=== PATIENT | male | born 1945 | race Caucasian/White ===

== ENCOUNTER 2019-07-27 10:01 | Inpatient (IN) ==
--- NOTE | 2019-07-09 15:53 | PAT Medication Instructions ---
Medication Instructions Date of Service July 09, 2019 Home Medications atorvastatin 80 mg tablet 80 mg PO QPM clopidogrel 75 mg tablet 75 mg PO QAM isosorbide dinitrate 30 mg tablet 30 mg PO QAM metolazone 2.5 mg tablet 2.5 mg PO UD metoprolol succinate 100 mg capsule sprinkle, ext. release 24 hr 100 mg PO QAM potassium chloride 20 mEq oral packet 40 meq PO BID torsemide 10 mg tablet 20 mg PO QAM warfarin 5 mg tablet 2.5 - 5 mg PO QPM calcium carbonate-vitamin D3 [Calcium 500 + D] 1 tab PO QAM cholecalciferol (vitamin D3) [Vitamin D3] 125 mcg PO 5XWK levothyroxine 75 mcg PO QAM Multivitamin 50 Plus] 1 tab PO QAM ASK your prescriber and surgeon clopidogrel 75 mg tablet 75 mg PO QAM warfarin 5 mg tablet 2.5 - 5 mg PO QPM DO NOT take the morning of surgery metolazone 2.5 mg tablet 2.5 mg PO UD potassium chloride 20 mEq oral packet 40 meq PO BID torsemide 10 mg tablet 20 mg PO QAM calcium carbonate-vitamin D3 [Calcium 500 + D] 1 tab PO QAM cholecalciferol (vitamin D3) [Vitamin D3] 125 mcg PO 5XWK Multivitamin 50 Plus] 1 tab PO QAM Take morning of surgery With a small sip of water, OTHERWISE NOTHING TO EAT OR DRINK AFTER MIDNIGHT: isosorbide dinitrate 30 mg tablet 30 mg PO QAM metoprolol succinate 100 mg capsule sprinkle, ext. release 24 hr 100 mg PO QAM levothyroxine 75 mcg PO QAM Take evening before surgery atorvastatin 80 mg tablet 80 mg PO QPM potassium chloride 20 mEq oral packet 40 meq PO BID Other Notes If you have any questions please call us at [phone] or [phone] or [phone] or [phone]
--- NOTE | 2019-07-14 14:33 | Anesthesiology Consultation ---
Date of Service July 14, 2019 Assessment & Plan (1) Encounter for pre-operative examination: Per PAT assessment on 07/13: Travel screen- Lives in [place]. He reports that son works at [employer] and he has interacted with him a few times but that they wear masks and remain >6 feet apart/social distance during these times. No known COVID-19 positive contacts. No current COVID-19 related symptoms. Patient scheduled for COVID-19 testing (per surgeon preop protocol) 07/21 at surgeon's office. Awaiting test results. - Cardiology note: 03/17/19: Preop stress test/ECHO reviewed. "Nuclear stress test reveals normal perfusion. Echocardiogram reveals stable findings with low normal LV EF. Since his recent visit with me the patient had seen Dr. Andrews of orthopedics and right rotator cuff for tear is tentatively planned to be performed at [facility] in May. Patient is stable from a cardiac perspective to proceed with surgery as planned. I do think he requires a preoperative Lovenox bridge given his stroke risk factors and his history of permanent atrial fibrillation." Left sided pacemaker. Case reviewed with Dr. Painting- he requests we ask cardiology perioperative recommendations regarding pacemaker/if rep needed. Awaiting cardiology response RE: perioperative pacemaker recommendations. - Check coags AM DOS Chart Review Chart Review: Patient seen in Pre Admission Testing Teaching & Discussion Pre-Anesthesia Teaching/Discussion Notes: Instructed NPO after midnight before surgery,except medications with 15 cc of water. Medication instructions provided according to the PAT guidelines. History Surgery Operation Date: 07/27/19 13:00 Proposed Procedures p Right Reverse Total Shoulder Arthroplasty - Nile Andrews DO Height/Weight Height: 5 ft 8 in Weight: 134.5 kg Allergies Allergy/AdvReac Type Severity Reaction Status Date / Time aspirin Allergy Unknown PT DENIES Verified 07/09/19 14:52 Sulfa (Sulfonamide AdvReac Unknown STOMACH Verified 07/14/19 13:26 Antibiotics) CRAMPS Medications Home Medications Medication Instructions Recorded Confirmed Last Taken atorvastatin 80 mg tablet 80 mg PO QPM 03/04/19 07/14/19 Unknown clopidogrel 75 mg tablet 75 mg PO QAM 03/04/19 07/14/19 Unknown isosorbide dinitrate 30 mg tablet 30 mg PO QAM tab 03/04/19 07/14/19 Unknown metolazone 2.5 mg tablet 2.5 mg PO UD 03/04/19 07/14/19 Unknown metoprolol succinate 100 mg 100 mg PO QAM 03/04/19 07/14/19 Unknown capsule sprinkle, ext. release 24 hr potassium chloride 20 mEq oral 40 meq PO BID 03/04/19 07/14/19 Unknown packet torsemide 10 mg tablet 20 mg PO QAM 03/04/19 07/14/19 Unknown warfarin 5 mg tablet 2.5 - 5 mg PO QPM 03/04/19 07/14/19 Unknown calcium carbonate-vitamin D3 1 tab PO QAM 07/09/19 07/14/19 Unknown [Calcium 500 + D] cholecalciferol (vitamin D3) 125 mcg PO 5XWK 07/09/19 07/14/19 Unknown [Vitamin D3] levothyroxine 75 mcg PO QAM 07/09/19 07/14/19 Unknown uaxzjrpnqmhv-vvxvxyxm-hpabny 1 tab PO QAM 07/09/19 07/14/19 Unknown [Multivitamin 50 Plus] Past Medical History Medical History (Updated 07/16/19 @ 08:13 by Yael Tran) Arthritis Atrial fibrillation CAD (coronary artery disease) stent x1 (2002), CABG x2 (1999) Chronic back pain Diaphragm injury Per patient, 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- now on 2-3L O2 daily DVT (deep venous thrombosis) 1997 Gout Hypothyroidism Myocardial Infarction 1999 Pacemaker Medtronic implanted 2011, last check 05/2019 Skin cancer SCC Sleep apnea BIPAP + 2.5-3 L O2 HS Exercise / Class Metabolic Activity III < 4 Walking/Shop/Light housework (uses cane PRN) Past Family History Family History Son Family history of diabetes mellitus Past Surgical History Surgical History History of cardiac cath [facility] 1999 History of cardiac cath 2002 1 STENT [facility] History of coronary artery bypass graft 2 VESSELS [facility] History of permanent cardiac pacemaker placement 2011 S/P vascular surgery RIGHT FEM-POP BYPASS GRAFT Past Anesthesia History No Hx of Anesthesia Complications and No Family Hx of Anesthesia Complications History of PONV No Hx of PONV and No Hx of Motion Sickness Social History Smoking Status: Former smoker Do You Dip or Chew Tobacco: No Smoking End Date: QUIT 1999 Hx Alcohol Use: No Hx Substance Use: No Review of Systems Patient denies chest pain, shortness of breath, fever, chills, cough, wheezing, palpitations. Physical Exam Vital Signs VITALS BP 115/80 P 75 TEMP 98.0 SP02 94-95% on 2L O2 RESP 18 PHYSICAL Full neck and c-spine range of motion. Full TMJ range of motion. TMD 3 finger breaths Mallampati Score 2 Dentition: missing lower sides, several crowns Lungs: clear throughout to auscultation Cardiac: regular rate and rhythm, no murmurs noted Spine: normal Carotid arteries: negative bruit Extremities: non-pitting LE edema Testing Laboratory Results 07/14/19 15:15 07/14/19 15:15 PT 29.9 Seconds (9.0-12.0) H 07/14/19 15:15 INR 3.0 (0.9-1.1) H 07/14/19 15:15 APTT 37.3 Seconds (21.0-31.0) H 07/14/19 15:15 Blood Type B Positive 07/14/19 15:15 Antibody Screen NEGATIVE 07/14/19 15:15 Electrocardiogram Date: 07/14/19 Ventricular-paced rhythm at 91bpm. Suspect underlying atrial fibrillation. Chest X-Ray Date: 07/14/19 FINDINGS: The bones soft tissues and hemidiaphragms are normal. The cardiomediastinal silhouette is normal. The lungs are clear. The pulmonary vasculature is normal. Chronic elevation right hemidiaphragm. Permanent bipolar cardiac pacemaker. IMPRESSION: Chronic and postoperative change. No acute process. Echocardiogram Date: 03/17/19 EF 50-54%. Septal motion consistent with RV pacemaker. Severe LAE. Mild TR. Borderline cLV wall thickness increased. Abnormal diastolic function. Stress Test Date: 03/17/19 Type: nuclear Myocardial perfusion is normal. Overall LV systolic function was normal. Gated SPECT imaging compromised d/t pacing and patient motion (would defer resting wall motion analysis to echocardiogram of 03/17/2019). Compared to previous study of 10/11/16: "no new ischemia, inferior scar resolved." 53% MPHR. Other Testing Pacer check: 06/01/19: Genlot. Battery estimated longevity 27 months. Mode VVIR. WAIST PLEATER 99.7%.
--- NOTE | 2019-07-14 15:54 | XRay Report ---
XR chest Pre-admission PA/Lat CLINICAL HISTORY: pat preoperative COMPARISON STUDY: No previous studies for comparison. FINDINGS: The bones soft tissues and hemidiaphragms are normal. The cardiomediastinal silhouette is n ormal. The lungs are clear. The pulmonary vasculature is normal. Chronic elevation right hemidiaphrag m. Permanent bipolar cardiac pacemaker. IMPRESSION: Chronic and postoperative change. No acute process. ACT 112: Negative or not required by law. The above report was generated using voice recognition software. It may contain grammatical, syntax or spelling errors. Electronically signed by: Marcus Magana M.D. 07/14/2019 3:52 PM
[2019-07-14 15:58] LABS: Basophils # (auto) 0.04 K/uL (0-0.2); Basophils % (auto) 0.5 %; Eosinophils % (auto) 4.9 %; Hematocrit (blood only) 45.4 % (42-52); Hemoglobin 13.5 g/dL (14.0-18.0); Immature Granulocytes # (auto) 0.02 K/uL (0.00-0.02); Immature Granulocytes % (auto) 0.2 %; Lymphocytes # (auto) 1.43 K/uL (1.2-3.4); Lymphocytes % (auto) 17.6 %; Mean Corpuscular Hgb Conc 29.7 g/dL (32-36); Monocytes # (auto) 1.14 K/uL (0.11-0.59); Monocytes % (auto) 14.1 %; Neutrophils # (auto) 5.08 K/uL (1.4-6.5); Neutrophils % (auto) 62.7 %; Platelet Count 224 K/uL (130-400); RDW Coefficient of Variation 18.6 % (11.5-14.5); RDW Standard Deviation 64.3 fL (36.4-46.3); Red Blood Count 4.83 M/uL (4.7-6.1); White Blood Count 8.11 K/uL (4.8-10.8)
[2019-07-14 16:14] LABS: Partial Thromboplastin Ratio 1.3; Partial Thromboplastin Time 37.3 Seconds (21.0-31.0); Prothrombin Time 29.9 Seconds (9.0-12.0)
[2019-07-14 18:16] LABS: BUN Creatinine Ratio 21.1 (10-20); Calcium 9.9 mg/dl (8.5-10.1); Creatinine Clr Calc Pharmacy 71.8 ml/min; Est GFR (African American) 67.9; Est GFR (Non-African American) 58.6; Potassium 3.4 mmol/L (3.5-5.1)
--- NOTE | 2019-07-15 08:52 | Electrocardiogram Report ---
Test Reason : Blood Pressure : / mmHG Vent. Rate : 091 BPM Atrial Rate : 086 BPM P-R Int : 000 ms QRS Dur : 188 ms QT Int : 468 ms P-R-T Axes : 000 -65 108 degrees QTc Int : 575 ms Ventricular-paced rhythm Suspect underlying atrial fibrillation Abnormal ECG When compared with ECG of 14-MAR-2013 23:34, Vent. rate has increased BY 28 BPM Atrial fibrillation is now present Confirmed by Arnulfo Villar ([id number]) on 07/15/2019 8:52:19 AM Referred By: Nile Andrews Confirmed By:Arnulfo Villar
--- NOTE | 2019-07-22 07:41 | History & Physical Report ---
Date of Service July 22, 2019 Assessment & Plan (1) Rotator cuff arthropathy of right shoulder: We will proceed with a right reverse shoulder arthroplasty. Postoperatively he will be started back up on his Plavix and Coumadin. He will be placed in an arm sling and kept overnight in the hospital for postoperative medical management. He plans to use energy physical therapy upon discharge. Present on Admission?: Yes History of Present Illness Chief Complaint: Rotator cuff arthropathy of the right shoulder Primary Care Provider: Johnathan Adler MD Arnulfo is a pleasant 73-year-old male who has been dealing with increasing right shoulder pain and weakness. He had a rotator cuff repair done by Dr. Peralta 12 years ago. He initially did well after the surgery. Unfortunately he then fell and began having pain and weakness of his right shoulder. X-rays and clinical examination have been diagnostic for rotator cuff arthropathy of the right shoulder. After failing conservative treatment, he has elected to proceed with a reverse right shoulder arthroplasty. Allergies Allergy/AdvReac Type Severity Reaction Status Date / Time aspirin Allergy Unknown PT DENIES Verified 07/09/19 14:52 Sulfa (Sulfonamide AdvReac Unknown STOMACH Verified 07/14/19 13:26 Antibiotics) CRAMPS Home Medications Home Medications Medication Instructions Recorded Confirmed Type atorvastatin 80 mg tablet 80 mg PO QPM 03/04/19 07/14/19 History clopidogrel 75 mg tablet 75 mg PO QAM 03/04/19 07/14/19 History isosorbide dinitrate 30 mg tablet 30 mg PO QAM tab 03/04/19 07/14/19 History metolazone 2.5 mg tablet 2.5 mg PO UD 03/04/19 07/14/19 History metoprolol succinate 100 mg 100 mg PO QAM 03/04/19 07/14/19 History capsule sprinkle, ext. release 24 hr potassium chloride 20 mEq oral 40 meq PO BID 03/04/19 07/14/19 History packet torsemide 10 mg tablet 20 mg PO QAM 03/04/19 07/14/19 History warfarin 5 mg tablet 2.5 - 5 mg PO QPM 03/04/19 07/14/19 History calcium carbonate-vitamin D3 1 tab PO QAM 07/09/19 07/14/19 History [Calcium 500 + D] cholecalciferol (vitamin D3) 125 mcg PO 5XWK 07/09/19 07/14/19 History [Vitamin D3] levothyroxine 75 mcg PO QAM 07/09/19 07/14/19 History yeydfqblsuuz-jiudvtlr-locnlx 1 tab PO QAM 07/09/19 07/14/19 History [Multivitamin 50 Plus] Past Med/Surg History Medical History Arthritis Atrial fibrillation CAD (coronary artery disease) stent x1 (2002), CABG x2 (1999) Chronic back pain Diaphragm injury Per patient, 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- now on 2-3L O2 daily DVT (deep venous thrombosis) 1997 Gout Hypothyroidism Myocardial Infarction 1999 Pacemaker Medtronic implanted 2011, last check 05/2019 Skin cancer SCC Sleep apnea BIPAP + 2.5-3 L O2 HS Surgical History History of cardiac cath [facility] 1999 History of cardiac cath 2002 1 STENT [facility] History of coronary artery bypass graft 2 VESSELS [facility] History of permanent cardiac pacemaker placement 2011 S/P vascular surgery RIGHT FEM-POP BYPASS GRAFT Family History Son Family history of diabetes mellitus Social History Preferred Language: Azeri Communication Ability: Effective Block Handler Required: No Beliefs That Will Affect Care: None Current Living Situation: Spouse Feels Safe at Home: Yes Smoking Status: Former smoker Second Hand Exposure: No ; Hx Alcohol Use: No Hx Substance Use: No Review of Systems Review of Systems: All systems reviewed & are unremarkable except as noted in HPI & below Physical Exam Constitutional: WD/WN, vitals as above Eyes: PERRL, conjunctivae normal, anicteric sclerae ENMT: external ear and nose normal, oropharynx normal Neck: trachea midline, no thyromegaly Respiratory: normal respiratory effort Cardiovascular: RRR, no murmur, no edema Gastrointestinal (Abdomen): normal bowel sounds, soft, nontender, no hepatosplenomegaly Musculoskeletal: Physical examination of the right shoulder reveals decreased range of motion and significant weakness. There is tenderness palpation along the anterior glenohumeral joint line. The right upper extremity is neurovascularly intact. Psychiatric: A+Ox3, euthymic affect Results & Data Results & Data ([place]) Diagnostic Findings Radiographs of the right shoulder show some signs of osteoarthritis with blunting of the greater tuberosity and some superior migration of the humeral head on the glenoid. PG Care Time/CCT Total # of Minutes Spent Total Time Spent with Patient: Total time spent is greater than 50% in coordination of care (as documented) at patient's floor/unit and/or counseling patient: Coding Level of Care Code 27128 Initial Inpt Care Lvl 3 Diagnoses Rotator cuff arthropathy of right shoulder M12.811
[~2019-07-27 10:01] MED LIST: ACETAMINOPHEN 500 MG TAB PO SCH; CEFAZOLIN 3000MG 72.5 ML IV SCH; FAMOTIDINE 20 MG TAB PO SCH; GABAPENTIN 300 MG CAP PO SCH; LR 15ML/HR IV SCH; LR 60ML/HR IV SCH; ROPIVACAINE 0.5% HCL/PF 150 MG, BUPIVACAINE 0.5% MPF 30 ML, EPINEPHrine 30MG/30ML (OR U... INSTIL SCH; TRANEXAMIC ACID 1,000 MG **IV Intra-op IV SCH; dexAMETHasone 4 MG TAB PO SCH
--- NOTE | 2019-07-27 10:30 | History & Physical Bridge Note ---
Date of Service July 27, 2019 History & Physical Bridge Note I have examined the patient, reviewed the History & Physical and in the interval since the performance of the History & Physical I have noted the following changes of clinical significance: no changes noted
[2019-07-27 11:09] LABS: INR 1.2 (0.9-1.1); Partial Thromboplastin Ratio 1.1; Partial Thromboplastin Time 30.8 Seconds (21.0-31.0)
[2019-07-27] MEDS ORDERED: BUPIVACAINE 0.5 % 5 MG/1 ML PF 10ML VIAL ONE (11:18)
[2019-07-27] MEDS ORDERED: fentaNYL citrate 100 MCG/2 ML VIAL ONE (12:26)
[2019-07-27] MEDS ORDERED: ORTHO JOINT ANESTHETIC ONE (12:56)
[2019-07-27] MEDS ORDERED: MIDAZOLAM HCL 1 MG/ML 2ML VIAL ONE (12:57)
[2019-07-27] MEDS: TRANEXAMIC ACID 1,000 MG **IV Pre-op IV SCH ×2 (13:15→16:50)
[2019-07-27] MEDS ORDERED: ePHEDrine sulfate 50 MG/ML AMP IV PRN (13:26)
[2019-07-27] MEDS ORDERED: ATROPINE SULFATE 0.1 MG/ML 10ML SYR IV PRN (13:26)
[2019-07-27] MEDS ORDERED: SUGAMMADEX SODIUM 200 MG/2 ML VIAL IV ONE (13:30)
[2019-07-27] MEDS ORDERED: ONDANSETRON INJ 2 MG/ML 2 ML VIAL ONE (13:55)
[2019-07-27] MEDS ORDERED: ROCURONIUM BROMIDE 10 MG/ML 5 ML VIAL IV ONE (13:55)
[2019-07-27] MEDS ORDERED: DEXAMETHASONE SOD INJ 4 MG/ML VIAL ONE (13:55)
[2019-07-27] MEDS ORDERED: PROPOFOL IV EMULSION 10 MG/ML 20 ML VIAL IV ONE (13:55)
[2019-07-27] MEDS ORDERED: LIDOCAINE HCL 2% 2 ML VIAL/AMP(20MG/ML) INFIL ONE (13:55)
--- NOTE | 2019-07-27 14:56 | Operative Report ---
PG Post Operative Report Pre & Post Diagnosis Operation Date: 07/27/19 11:55 Pre-Op Diagnosis: Right Shoulder Degenerative Joint Disease Post-Op Diagnosis: Right Shoulder Degenerative Joint Disease I identified the patient and participated in the time-out.: Yes Procedure Operation Date: 07/27/19 11:55 Actual Procedures p Right Reverse Total Shoulder Arthroplasty(Right) - Nile Andrews DO Surgeon Nile Andrews DO Inside Sales Lead Nile Marroquin PAC Estimated Blood Loss 350 Findings Consistent with Post-Op Diagnosis Specimens Right humeral head Complications none Disposition Disposition: Recovery Room Indications Arnulfo is a pleasant 73-year-old male who presented my office with complaints of increasing right shoulder pain. He has a history of an open rotator cuff repair in the past. He initially did well but lately has been doing much worse. X-rays and clinical examination are diagnostic for rotator cuff arthropathy of the right shoulder. After failing conservative treatment, he elected to proceed with a right reverse shoulder arthroplasty. Description of Procedure Implants used: I used a [employer]omet Comprehensive reverse total shoulder arthroplasty system with a size 17 press fit micro-i humeral stem, a standard humeral tray and a standard humeral bearing, a 25 mm mini baseplate with a 6.5 mm central screw and superior and inferior locking screws, and a size 40 mm eccentric glenosphere. Arnulfo arrived at [facility] for the above procedure. He was seen in the preoperative holding area and the operative extremity was identified and signed. He was given a preoperative antibiotic, TXA, and an interscalene nerve block. He was taken back to the operating room, laid on table in supine position, and put under general anesthesia. He was then put into the beachchair position. The shoulder was then prepped and draped in sterile fashion. A timeout was done and the patient and the operative extremity was properly identified. A deltopectoral approach was used. Dissection was taken down through the fascia and the deltoid was retracted laterally and the conjoined tendon was retracted medially. The anterior shoulder was exposed. The biceps tendon was absent. The subscapularis was then directly released off the lesser tuberosity with a peel technique. The inferior capsule was released and the humeral head was dislocated. A canal finding reamer was sent down the center of the humeral canal. Sequential reaming up to a size 17 reamer was done. Off that reamer, a proximal humeral resection guide was placed. The proximal humerus was resected at 135 of inclination and 25 of retroversion. Osteophytes were then removed and the glenoid was exposed. Time was spent doing a complete capsular and labral release. The glenoid guide was then placed in the inferior aspect of the glenoid. A 3.2 mm Steinmann pin was then placed into the glenoid vault at 10 of inclination. The glenoid baseplate was then reamed. The final size 25 mm mini baseplate was then impacted in the place. A 6.5 mm central screw was then placed followed by superior and inferior locking screws. A 40 mm eccentric glenosphere was then impacted into place. Surrounding soft tissues were then injected with 100 cc an orthopedic pain control cocktail. The proximal humerus was then exposed. Sequential broaching of the humerus up to a size 17 broach was done. Off that broach a standard humeral tray was trialed. The shoulder was then reduced, brought through a full range of motion, and felt to be stable. The shoulder was then dislocated and the broach was removed. The final size 17 micro press-fit humeral stem was then impacted into place. A standard humeral bearing was then snapped onto a standard humeral tray. The humeral tray was then impacted onto the humeral stem. The shoulder was once again reduced, brought through a full range of motion, and felt to be stable. The subscapularis was then tenodesed back to the lesser tuberosity with transosseous FiberWire sutures and side to side sutures with the arm in 45 of external rotation. A dilute betadyne lavage was then done for 3 minutes. The joint was then irrigated with normal saline solution. Hemostasis was obtained. The interval was closed with 2-0 Vicryl suture. The skin was then closed with 2-0 Vicryl and osiris. A soft dressing was placed and the arm was rested in a regular arm sling. He was then extubated and transferred to a hospital bed. He taken to the postanesthesia care unit in stable condition. He tolerated the procedure well. Nile Marroquin PA-C, was present for the entire procedure. He was critical for patient positioning, prepping, draping, retraction exposure, wound closure and application of sterile dressing. I attest to the content of the Intraoperative Record and any orders documented therein. Any exceptions are noted below.
[2019-07-27] MEDS ORDERED: ALBUTEROL HFA INHALER 8.5 GM ONE (15:28)
[2019-07-27] MEDS ORDERED: ALBUT/IPRATROP 3MG/0.5MG NEB 3 ML VIAL ONE (15:58)
[2019-07-27] MEDS ORDERED: ALBUT/IPRATROP 3MG/0.5MG NEB 3 ML VIAL NEB STA (16:00)
--- NOTE | 2019-07-27 16:25 | XRay Report ---
XR shoulder RT min 2V routine HISTORY: 73 years-old Male Post shoulder surgery COMPARISON: Right shoulder radiographs 03/04/2019 TECHNIQUE: 2 views the right shoulder FINDINGS: Reverse total joint arthroplasty. Satisfactory alignment without acute fracture or retained foreign b holli identified. Skin osiris are noted with expected postsurgical soft tissue swelling and deep tissu e air. Mild to moderate AC joint osteoarthritis. Hypoinflation. Mild right lung base opacities sugges t atelectasis. Prior median sternotomy. Partially imaged pacer leads. IMPRESSION: Reverse right shoulder total joint arthroplasty demonstrates satisfactory alignment. ACT 112: Negative or not required by law. The above report was generated using voice recognition software. It may contain grammatical, syntax o r spelling errors. Electronically signed by: Rush Coffey M.D. 07/27/2019 4:24 PM
--- NOTE | 2019-07-27 16:51 | Anesthesiology Progress Note ---
Date of Service July 27, 2019 Anesthesia Post Procedure Vital Signs Vital Signs: Temp Pulse Pulse Resp BP Pulse Ox 07/27/19 16:40 36.4 C L 68 18 107/66 96 07/27/19 16:30 36.4 C L 60 17 116/70 100 07/27/19 16:20 61 18 114/71 100 07/27/19 16:10 61 17 98/91 L 100 07/27/19 16:00 36.1 C L 65 28 H 112/69 97 07/27/19 11:32 77 20 119/72 100 07/27/19 10:43 36.6 C 85 24 140/96 95 Transfer of Care Handoff Completed per policy Notes Mental Status: alert / awake / arousable and participated in evaluation Patient Amnestic to Procedure: Yes Nausea / Vomiting: adequately controlled Pain: adequately controlled Airway Patency, RR, SpO2: stable & adequate BP & HR: stable & adequate Hydration State: stable & adequate Anesthetic Complications: no major complications apparent and Pt Satisfied with anesthetic care Notes: The patient has a hx significant for YANIRA on BIPAP 2-3L and R diaphragm injury/lung damage secondary to his CABG. The patient did well intraoperatively with no issues. He was successfully extubated in the OR once he was more awake and taking adequate tidal volumes. He was placed on BIPAP in recovery as he was initially slightly dyspneic. Respiratory was able to titrate him down to his home BIPAP setting before being transferred to the floor. The patient is now awake and answers questions appropriately. He has no complaints. I spoke to Horacio, the [employer] asset protection representative who stated that patient's pacemaker does not need to be interrogated postoperatively. Continuous pulse oximeter monitoring was ordered for the patient on the floor.
[2019-07-27] MEDS ORDERED: TRANEXAMIC ACID 1,000 MG in 0.9 % SODIUM CHLORIDE 100 ML IV SCH (17:00)
[2019-07-27] MEDS ORDERED: SODIUM CHLORIDE 0.9% 1000ML 1,000 ML IV SCH (18:00)
[2019-07-27] MEDS ORDERED: NALOXONE HCL 0.4 MG/1 ML VIAL/CARP IV PRN (18:00)
[2019-07-27] MEDS ORDERED: bisacodyL 10 MG SUPP PR PRN (18:00)
[2019-07-27] MEDS ORDERED: METOCLOPRAMIDE HCL INJ 5 MG/ML 2 ML VIAL IV PRN (18:00)
[2019-07-27] MEDS ORDERED: MAGNESIUM HYDROXIDE SUSP 30 ML UDC PO PRN (18:00)
[2019-07-27] MEDS ORDERED: ONDANSETRON INJ 2 MG/ML 2 ML VIAL IV PRN (18:00)
[2019-07-27] MEDS ORDERED: OXYCODONE HCL IR 5 MG TAB (IMMEDIATE RELEASE) PO PRN (18:00)
[2019-07-27] MEDS ORDERED: HYDROmorphone INJ 0.5 MG/0.5 ML SYR IV PRN (18:00)
[2019-07-27] MEDS: KETOROLAC 30 MG/ML VIAL IV SCH (19:34)
[2019-07-27] MEDS ORDERED: SENNA 8.6 MG TAB PO SCH (21:00)
[2019-07-27] MEDS ORDERED: WARFARIN SOD 2.5 MG TAB PO SCH (21:00)
[2019-07-27] MEDS ORDERED: ATORVASTATIN 40 MG TAB PO SCH (21:00)
[2019-07-27] MEDS: POTASSIUM CHLORIDE PWD 20 MEQ PACK PO SCH (21:27)
[2019-07-27] MEDS: ACETAMINOPHEN 500 MG TAB PO SCH (21:28)
[2019-07-27] MEDS: DOCUSATE SODIUM 100 MG CAP PO SCH (21:28)
[2019-07-27] MEDS: CEFAZOLIN 2000MG 2,000 MG/15 ML SYR IV SCH (21:30)
[2019-07-28] MEDS: KETOROLAC 30 MG/ML VIAL IV SCH ×3 (00:22→11:23)
[2019-07-28] MEDS: ACETAMINOPHEN 500 MG TAB PO SCH ×2 (05:14→13:43)
[2019-07-28] MEDS: CEFAZOLIN 2000MG 2,000 MG/15 ML SYR IV SCH (05:14)
[2019-07-28 05:42] LABS: Basophils # (auto) 0.01 K/uL (0-0.2); Basophils % (auto) 0.1 %; Hematocrit (blood only) 41.2 % (42-52); Hemoglobin 12.1 g/dL (14.0-18.0); Immature Granulocytes # (auto) 0.03 K/uL (0.00-0.02); Immature Granulocytes % (auto) 0.3 %; Lymphocytes % (auto) 6.8 %; Mean Corpuscular Hemoglobin 29.3 pg (25-34); Mean Corpuscular Hgb Conc 29.4 g/dL (32-36); Mean Corpuscular Volume 99.8 fL (80-100); Mean Platelet Volume 11.2 fL (7.4-10.4); Monocytes # (auto) 0.85 K/uL (0.11-0.59); Monocytes % (auto) 7.2 %; Neutrophils # (auto) 10.07 K/uL (1.4-6.5); Neutrophils % (auto) 85.6 %; Platelet Count 211 K/uL (130-400); RDW Coefficient of Variation 18.8 % (11.5-14.5); RDW Standard Deviation 68.9 fL (36.4-46.3); Red Blood Count 4.13 M/uL (4.7-6.1); White Blood Count 11.76 K/uL (4.8-10.8)
[2019-07-28 06:13] LABS: BUN Creatinine Ratio 20.4 (10-20); Calcium 8.6 mg/dl (8.5-10.1); Creatinine Clr Calc Pharmacy 49.9 ml/min; Est GFR (African American) 43.2; Est GFR (Non-African American) 37.3; Potassium 5.4 mmol/L (3.5-5.1)
[2019-07-28] MEDS ORDERED: LEVOTHYROXINE SODIUM 75 MCG TABLET PO SCH (06:30)
--- NOTE | 2019-07-28 06:57 | Orthopedic Progress Note ---
Date of Service July 28, 2019 Assessment & Plan (1) History of reverse total replacement of right shoulder joint: Overall he is doing very well. Is not having much pain in the right shoulder. He will be seen by physical therapy this morning for ambulation and range of motion exercises. He can be discharged home later today. He can resume his Plavix and Coumadin. He will be in a sling for 3 weeks. He will follow-up with orthopedics in 2 weeks. Present on Admission?: Yes Subjective Arnulfo was seen and examined at bedside this morning. Overall he is doing very well. Is not having any pain in the right shoulder. He was able to get some sleep last night. He has no complaints. Physical Exam Musculoskeletal: On physical examination of the right shoulder, the dressing is clean and dry. His radial, median, and ulnar nerves are checked intact at his wrist. His axillary nerve was not checked yet. He is wearing a sling as instructed. Results & Data ([facility]) Vital Signs (Past 12 Hours) Vital Signs Temp Pulse Pulse Resp BP Pulse Ox 07/28/19 03:43 36.5 C 73 20 103/66 94 07/28/19 00:40 65 25 H 94 07/27/19 23:05 36.3 C L 71 20 102/66 93 07/27/19 20:15 36.4 C L 62 17 100/62 90 07/27/19 19:15 36.4 C L 67 18 104/61 90 Laboratory Results H & H 07/14/19 07/28/19 Range/Units 15:15 05:06 Hgb 13.5 L 12.1 L (14.0-18.0) g/dL Hct 45.4 41.2 L (42-52) % Coagulation 07/14/19 07/27/19 Range/Units 15:15 10:47 INR 3.0 H 1.2 H (0.9-1.1) Diagnostic Findings Postoperative x-rays of the right shoulder show the prosthesis to be in anatomic alignment without any evidence of fracture, dislocation, or loosening. PG Care Time/CCT Total # of Minutes Spent Total Time Spent with Patient: Total time spent is greater than 50% in coordination of care (as documented) at patient's floor/unit and/or counseling patient: Coding Level of Care Code None Diagnoses History of reverse total replacement of right shoulder joint Z98.890
--- NOTE | 2019-07-28 06:58 | Discharge Summary ---
Date of Service July 28, 2019 Admission HPI Per Admitting Provider Arnulfo is a pleasant 73-year-old male who has been dealing with increasing right shoulder pain and weakness. He had a rotator cuff repair done by Dr. Peralta 12 years ago. He initially did well after the surgery. Unfortunately he then fell and began having pain and weakness of his right shoulder. X-rays and clinical examination have been diagnostic for rotator cuff arthropathy of the right shoulder. After failing conservative treatment, he has elected to proceed with a reverse right shoulder arthroplasty. Principal Diagnosis Right reverse shoulder arthroplasty Discharge Data Allergies Allergy/AdvReac Type Severity Reaction Status Date / Time Sulfa (Sulfonamide AdvReac Mild STOMACH Verified 07/27/19 10:30 Antibiotics) CRAMPS Consultations 07/27/19 18:00 Consult Case Management - Discharge Planning Routine Procedures Performed Operation Date: 07/27/19 11:55 Actual Procedures p Right Reverse Total Shoulder Arthroplasty--Uncemented(Right) - Nile Andrews DO Ordered Studies 07/27/19 05:00 US - OR guided needle placemen Routine Hospital Course (1) History of reverse total replacement of right shoulder joint: On July 27, 2019 kale arrived at [facility] and underwent a right reverse shoulder arthroplasty without complication. He had a general anesthetic and a right interscalene nerve block. Postoperatively he was placed in an arm sling and transferred to the general orthopedic floors. His hospital course was uneventful. On postop day #1 his H&H was stable and his pain was well controlled. He was able to participate well with physical therapy doing ambulation and range of motion exercises. He was then discharged home. He will follow-up with orthopedics in 2 weeks. Total Time Total Time Spent Total Time Spent (In Minutes): 20 Discharge Plan Discharge Items Patient Disposition: Home - Home Health Services Reason For Visit: Right Shoulder Degenerative Joint Disease Discharge Diagnosis: Right reverse shoulder arthroplasty Activity: As commented below Non-emergency contact: Surgeon Call non-emergency contact if: your wound has increased redness and your wound has increased drainage Follow-up/Referrals: Johnathan Adler MD [Primary Care Provider] - Diet: Regular Addtl Attending Provider Instructions: Activity and Therapy Recommendations: * If you are using [facility] then therapy will be provided at your home until they feel you have accomplished all of your goals. * If you are using [facility] then Physical Therapy will be provided until they feel you are ready to start Outpatient Physical Therapy. * If you are not using home therapy then Outpatient Physical Therapy should sta rt about 3-5 days from your day of surgery. Therapy will last about 8-12 weeks * Wear your sling for 3 weeks, unless otherwise instructed. You may remove your sling to shower and to dress, but otherwise, you should be in your sling at all times, including while sleeping * The shoulder replacement is very stable and you can use your hand while in the sling * You were shown a series of exercises in the hospital. Do these exercises daily including the exercises you were shown in physical therapy. Medications: * Narcotic You will likely be sent home from the hospital with a prescription for the narcotic pain medication that worked best throughout your stay. * Other medications may be prescribed for specific circumstances. If you have any questions, please call the office at . * Resume previous home medications unless otherwise instructed Dressing Care: Leave the silver dressing in place for 7 days. After 7 days you may remove the dressing. If the incision is not draining then you may leave the osiris open to air. If there is a little bit of drainage or if the osiris are getting stuck on your clothing then cover the incision with a dry dressing. The osiris will be removed at your 2 week follow-up appointment. Showering: You may shower with the silver dressing in place. Do not scrub or soak the dressing. After 7 days you may remove the dressing. At that time you can shower with the osiris exposed. Let the soapy shower water run over the osiris and pat them dry. Do not scrub or soak the incision. Things To Watch For: * Drainage from the incision site that occurs more than one week after your s urgery. * Increased redness at the incision site. * Fever above 102 degrees Fahrenheit. * Unusual chest pain or shortness of breath. * Call [facility] at with any of the above problems Follow-Up Visit: Follow-up with Dr. Andrews's PA (Nile Marroquin) 2-3 weeks after your day of surgery. He will remove your osiris and answer any questions. If you have any additional questions or concerns, Dr Andrews is usually in the office at the same time and will be available An appointment was probably scheduled when you signed-up for surgery in the [facility]. If you have any questions call More detailed instructions as well as Frequently Asked Questions were provided in a folder by our office when you signed-up for surgery. Please review these instructions when you get home. If you have any further questions or concerns, please feel free to call the office at [phone] Pending Studies at Discharge: No Stand-Alone Forms: [facility] Medications and DC Order Prescriptions: New oxycodone-acetaminophen [Percocet] 5-325 mg tablet 1 tab PO Q6H PRN (Reason: pain) Qty: 30 RF: 0 Continued metolazone 2.5 mg tablet 2.5 mg PO UD RF: 0 metoprolol succinate 100 mg capsule,sprinkle,ER 24hr 100 mg PO QAM RF: 0 torsemide 10 mg tablet 20 mg PO QAM RF: 0 warfarin [Jantoven] 5 mg tablet 2.5 - 5 mg PO QPM RF: 0 isosorbide dinitrate 30 mg tablet 30 mg PO QAM RF: 0 clopidogrel 75 mg tablet 75 mg PO QAM RF: 0 potassium chloride 20 mEq packet 40 meq PO BID RF: 0 atorvastatin 80 mg tablet 80 mg PO QPM RF: 0 levothyroxine 75 mcg Capsule 75 mcg PO QAM RF: 0 Multivitamin 50 Plus Tablet 1 tab PO QAM RF: 0 calcium carbonate-vitamin D3 [Calcium 500 + D] 500 mg(1,250mg) -200 unit Tablet 1 tab PO QAM RF: 0 cholecalciferol (vitamin D3) [Vitamin D3] 125 mcg (5,000 unit) Tablet 125 mcg PO 5XWK RF: 0 Discharge Orders: Discharge Order (Routine); Ordered 07/28/19 Ordered By: Nile Andrews Admission Data Admit Date/Time: 07/27/19 15:13 Attending Provider: Nile Andrews Admit Provider: Nile Andrews Primary Care Provider: Johnathan Adler Coding Level of Care Code D/C Day Management <30 mins Diagnoses History of reverse total replacement of right shoulder joint Z98.890
[2019-07-28] MEDS ORDERED: dexAMETHasone 4 MG TAB PO SCH (08:00)
--- NOTE | 2019-07-28 08:02 | Anesthesiology Progress Note ---
Date of Service July 28, 2019 Anesthesia Post Procedure Vital Signs Vital Signs: Temp Pulse Pulse Pulse Pulse Resp BP 07/28/19 03:43 36.5 C 73 20 103/66 07/28/19 00:40 65 25 H 07/27/19 23:05 36.3 C L 71 20 102/66 07/27/19 20:15 36.4 C L 62 17 100/62 07/27/19 19:15 36.4 C L 67 18 104/61 07/27/19 18:13 36.3 C L 70 16 108/62 07/27/19 17:15 36.4 C L 65 17 93/58 L 07/27/19 17:10 74 18 07/27/19 17:00 36.4 C L 60 19 96/60 L 07/27/19 16:50 36.4 C L 61 17 98/58 L 07/27/19 16:40 36.4 C L 68 18 107/66 07/27/19 16:30 36.4 C L 60 17 116/70 07/27/19 16:20 61 18 114/71 07/27/19 16:10 61 17 98/91 L 07/27/19 16:05 74 21 07/27/19 16:00 36.1 C L 74 65 21 112/69 07/27/19 11:32 77 20 119/72 07/27/19 10:43 36.6 C 85 24 140/96 Pulse Ox 07/28/19 03:43 94 07/28/19 00:40 94 07/27/19 23:05 93 07/27/19 20:15 90 07/27/19 19:15 90 07/27/19 18:13 92 07/27/19 17:15 100 07/27/19 17:10 07/27/19 17:00 96 07/27/19 16:50 96 07/27/19 16:40 96 07/27/19 16:30 100 07/27/19 16:20 100 07/27/19 16:10 100 07/27/19 16:05 100 07/27/19 16:00 100 07/27/19 11:32 100 07/27/19 10:43 95 Transfer of Care Handoff Completed per policy Notes Mental Status: alert / awake / arousable and participated in evaluation Patient Amnestic to Procedure: Yes Nausea / Vomiting: adequately controlled Pain: adequately controlled Airway Patency, RR, SpO2: stable & adequate BP & HR: stable & adequate Hydration State: stable & adequate Anesthetic Complications: no major complications apparent and Pt Satisfied with anesthetic care Notes: Block continues to function well. Breathing back to preoperative baseline.
[2019-07-28] MEDS: DOCUSATE SODIUM 100 MG CAP PO SCH (08:36)
[2019-07-28] MEDS: POTASSIUM CHLORIDE PWD 20 MEQ PACK PO SCH (08:37)
[2019-07-28] MEDS ORDERED: TORSEMIDE 10 MG TAB PO SCH (09:00)
[2019-07-28] MEDS ORDERED: MULTIVITAMIN TAB PO SCH (09:00)
[2019-07-28] MEDS ORDERED: NON-FORMULARY MEDICATION (Isosorbide Dinitrate 30 MG) PO SCH (09:00)
[2019-07-28] MEDS ORDERED: CLOPIDOGREL BISULFATE 75 MG TAB PO SCH (09:00)
[2019-07-28] MEDS ORDERED: METOPROLOL SUCC 50MG EXT REL TAB PO SCH (09:00)
[2019-07-28] MEDS ORDERED: metOLazone 2.5 MG TABLET PO SCH (09:00)
[2019-07-28] MEDS ORDERED: WARFARIN SOD 5 MG TAB PO SCH (16:00)
== END 2019-07-28 15:46 | DRG 483 ==
LOC: ASU 10:01 → 3E 15:13

== ENCOUNTER 2021-02-05 19:06 | Inpatient (IN) ==
[2021-02-05] MEDS ORDERED: MoRPHine SULFATE 4 MG/ML 1 ML CARP\\VIAL IV STA (19:22)
--- NOTE | 2021-02-05 19:25 | Emergency Department Note ---
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 Patient states that his discomfort had been worsening throughout the afternoon. He describes it as epigastric in nature and in his "lower ribs". States it does worsen when he takes deep breath. Patient patient denies any vomiting. On arrival here to the ED he is hemodynamically stable, he is in mild distress secondary to pain but otherwise saturating well on room air. He is afebrile on presentation. Denies any recent coughing. ROS: -Cardio: Epigastric chest pain/rib pain *10 point review systems was conducted and is otherwise negative unless stated above *Outpatient medications and allergy history reviewed PE: General: Alert, NAD HEENT: Normocephalic, atraumatic, trachea midline Eyes: Extraocular eye movement is intact, no scleral erythema Pulmonary: Clear to auscultation bilaterally, no wheezing Cardio: Regular rate and rhythm GI: Abdomen is soft, nontender : No suprapubic tenderness MSK: No evidence of trauma or malformation of the extremities, no edema Skin: No evidence of rash Neuro: Alert, no focal deficits Psychiatric: Cooperative job hand: - An order was placed for continuous cardiac monitoring - Patient was noted to be in paced rhythm with rate of 80 EKG: Rate: 83 Rhythm: Paced Intervals: QRS 182 ms, QTC [address] changes: No ST elevation Time: 1920 US RUQ: Limited study due to extensive bowel gas and patient body habitus. There appear to be gallstones as well as some sludge. There is no gallbladder wall thickening or pericholecystic fluid. No bile duct dilatation with the common bile duct measuring 4.5 mm. The liver appears grossly unremarkable but is not optimally visualized. The pancreas is not visualized. The right kidney appears to show cortical thinning with a lobulated cortical contour. There is no hydronephrosis or perinephric fluid. Medical Decision Making: Patient presented with nonspecific chest discomfort, states it is more over the epigastrium and radiates somewhat upwards towards his lower rib cage bilaterally. On arrival here to the ED he is otherwise well-appearing, sa turating well on room air, he is hemodynamically stable and afebrile. Patient was given aspirin and nitroglycerin prior to arrival via EMS. Lab work shows a normal troponin, there is evidence of transaminitis with an elevated bilirubin. Patient does not have any right upper quadrant tenderness but he does have tenderness over the epigastrium. Interventions included IV morphine for pain. Imaging including right upper quadrant ultrasound and chest x-ray were ordered. Chest x-ray does not show any evidence of cardiopulmonary pathology, there is noted to be elevation of the right diaphragm consistent with the patient's history. Ultrasound imaging of the right upper quadrant does not show any evidence of acute cholecystitis, there is evidence of multiple gallstones with some sludge but no gallbladder wall thickening or pericholecystic fluid. There is no bile duct dilation noted. Unclear source of the patient's transaminitis and elevated bilirubin. I did discuss this with on-call general surgery, Dr. Orozco, who is in agreement for consultation. Case was then discussed with the on-call hospitalist, Dr. Nguyễn, who accepted the patient to a telemetry bed for further management. Patient was admitted in stable condition. Diagnosis: 1. Nonspecific chest discomfort 2. Transaminitis, elevated bilirubin level 3. Atrial fibrillation on Coumadin, INR of 2.0 Disposition: Admission Marcus Mata DO Emergency Medicine Past Med/Surg History Medical History Arthritis Atrial fibrillation on warfarin; follows with Dr. 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- now on 2-3L O2 daily DVT (deep venous thrombosis) 1997; unk etiology Gout Hypothyroidism no meds Myocardial Infarction 1999 Pacemaker Medtronic implanted 2011, last check 02/2020 Skin cancer SCC Sleep apnea BIPAP + 2.5-3 L O2 HS Surgical History History of cardiac cath [facility] 1999 History of cardiac cath 2002 1 STENT [facility] History of cataract surgery left History of coronary artery bypass graft 2 VESSELS [facility] 1999 History of permanent cardiac pacemaker placement 2011 History of reverse total replacement of right shoulder joint (~07/2019) S/P vascular surgery RIGHT FEM-POP BYPASS GRAFT Family History Son Family history of diabetes mellitus Social History Smoking Status: Former smoker Tobacco Type: Cigarettes Second Hand Exposure: Yes (hx); Hx Alcohol Use: No Hx Substance Use: No Preferred Language: Palestinian Communication Ability: Effective Visual Impairment: No Limitations General Office Worker Required: No Beliefs That Will Affect Care: None marital status: Current Living Situation: Spouse Feels Safe at Home: Yes Assistive Devices: Cane and Glasses Allergies Allergies Allergy/AdvReac Type Severity Reaction Status Date / Time Sulfa (Sulfonamide AdvReac Mild STOMACH Verified 02/05/21 20:46 Antibiotics) CRAMPS Home Meds Home Medications Medication Instructions Recorded Confirmed atorvastatin 80 mg tablet 80 mg PO QPM 03/04/19 02/05/21 clopidogrel 75 mg tablet 75 mg PO QAM 03/04/19 02/05/21 isosorbide dinitrate 30 mg tablet 30 mg PO QAM tab 03/04/19 02/05/21 metolazone 2.5 mg tablet 2.5 mg PO UD 03/04/19 02/05/21 metoprolol succinate 100 mg 100 mg PO QAM 03/04/19 02/05/21 capsule sprinkle, ext. release 24 hr potassium chloride 20 mEq oral 60 meq PO BID 03/04/19 02/05/21 packet torsemide 10 mg tablet 20 mg PO QAM 03/04/19 02/05/21 warfarin 5 mg tablet (Jantoven) 2.5 - 5 mg PO QPM 03/04/19 02/05/21 calcium carbonate 500 mg-vitamin 1 tab PO QAM 07/09/19 02/05/21 D3 5 mcg (200 unit) tablet (Calcium 500 + D) cholecalciferol (vitamin D3) 125 125 mcg PO 5XWK 07/09/19 02/05/21 mcg (5,000 unit) tablet (Vitamin D3) [id number] 1 tab PO QAM 07/09/19 02/05/21 tablet (Multivitamin 50 Plus) levothyroxine 75 mcg tablet 75 mcg PO DAILY 12/26/21 12/26/21 Results & Data (ED) Vital Signs Vital Signs - 24 hr 02/05/21 19:22 02/06/21 00:00 Temperature 36.4 C L Temperature Source Temporal Artery Scan Pulse Rate 84 Pulse Rate [Apical] 84 60 Pulse Rhythm Regular Pulse Rhythm [Apical] Regular Regular Pulse Strength Normal Pulse Strength [Apical] Normal Normal Respiratory Rate 18 16 Respiratory Effort / Characteristics Non-Labored Spontaneous Non-Labored Spontaneous Respiratory Depth Normal Normal Respiratory Pattern Regular Blood Pressure 112/85 Blood Pressure [Right Arm] 112/85 94/53 L Blood Pressure Mean 94 Blood Pressure Mean [Right Arm] 94 66 Blood Pressure Position Semi-fowlers Blood Pressure Position [Right Arm] Semi-fowlers Pulse Oximetry 98 98 Oxygen Delivery Method Nasal Cannula Room Air Oxygen Flow Rate 4 Sepsis Recent Fever Within 48 Hours No Sepsis New/Unexplained Change in Mental Status No Sepsis Action Taken by Nursing No Action Required Oxygen Flow Rate - Titration 4 Pulse Oximetry Post Tiitration 97 Laboratory Data Result diagrams: 02/05/21 19:30 02/05/21 19:30 Lab Results 02/05/21 02/05/21 02/05/21 Range/Units 19:30 19:30 19:30 WBC 15.56 H (4.8-10.8) K/uL RBC 4.96 (4.7-6.1) M/uL Hgb 15.8 (14.0-18.0) g/dL Hct 48.9 (42-52) % MCV 98.6 (80-100) fL MCH 31.9 (25-34) pg MCHC 32.3 (32-36) g/dL RDW Std Deviation 56.2 H (36.4-46.3) fL RDW Coeff of Ibrahima 15.7 H (11.5-14.5) % Plt Count 327 (130-400) K/uL MPV 10.9 H (7.4-10.4) fL Immature Gran % (Auto) 0.3 % Neut % (Auto) 92.1 % Lymph % (Auto) 2.0 % [place] % (Auto) 5.3 % Eos % (Auto) 0.1 % Baso % (Auto) 0.2 % Neut # (Auto) 14.33 H (1.4-6.5) K/uL Lymph # (Auto) 0.31 L (1.2-3.4) K/uL [place] # (Auto) 0.83 H (0.11-0.59) K/uL Eos # (Auto) 0.02 (0-0.5) K/uL Baso # (Auto) 0.03 (0-0.2) K/uL Immature Gran # (Auto) 0.04 H (0.00-0.02) K/uL PT 19.3 H (9.0-12.0) Seconds INR 2.0 H (0.9-1.1) Sodium 140 (136-145) mmol/L Potassium 2.9 L (3.5-5.1) mmol/L Chloride 101 (98-107) mmol/L Carbon Dioxide 31 (21-32) mmol/L Anion Gap 8.0 (3-11) BUN 35 H (7-18) mg/dl Creatinine 1.74 H (0.6-1.4) mg/dl Est Cr Clr Drug Dosing 42.8 ml/min Est GFR ( Amer) 43.2 ml/min Est GFR (Non-Af Amer) 37.3 ml/min BUN/Creatinine Ratio 19.9 (10-20) Glucose 137 H (70-99) mg/dl Calcium 10.2 H (8.5-10.1) mg/dl Total Bilirubin 4.9 H (0.2-1) mg/dl AST 212 H (15-37) U/L ALT 132 H (12-78) Alkaline Phosphatase 317 H (45-117) U/L Troponin I < 0.015 (0-0.045) ng/ml Total Protein 8.1 (6.4-8.2) gm/dl Albumin 3.1 L (3.4-5.0) gm/dl Globulin 5.0 H (2.5-4.0) gm/dl Albumin/Globulin Ratio 0.6 L (0.9-2) Lipase 745 H (73-393) U/L SARS-CoV-2 (PCR) (Negative) Influenza Type A (PCR) (Neg) Influenza Type B (PCR) (Neg) RSV (RT-PCR) (Neg) 02/05/21 Range/Units 23:20 WBC (4.8-10.8) K/uL RBC (4.7-6.1) M/uL Hgb (14.0-18.0) g/dL Hct (42-52) % MCV (80-100) fL MCH (25-34) pg MCHC (32-36) g/dL RDW Std Deviation (36.4-46.3) fL RDW Coeff of Ibrahima (11.5-14.5) % Plt Count (130-400) K/uL MPV (7.4-10.4) fL Immature Gran % (Auto) % Neut % (Auto) % Lymph % (Auto) % [place] % (Auto) % Eos % (Auto) % Baso % (Auto) % Neut # (Auto) (1.4-6.5) K/uL Lymph # (Auto) (1.2-3.4) K/uL [place] # (Auto) (0.11-0.59) K/uL Eos # (Auto) (0-0.5) K/uL Baso # (Auto) (0-0.2) K/uL Immature Gran # (Auto) (0.00-0.02) K/uL PT (9.0-12.0) Seconds INR (0.9-1.1) Sodium (136-145) mmol/L Potassium (3.5-5.1) mmol/L Chloride (98-107) mmol/L Carbon Dioxide (21-32) mmol/L Anion Gap (3-11) BUN (7-18) mg/dl Creatinine (0.6-1.4) mg/dl Est Cr Clr Drug Dosing ml/min Est GFR ( Amer) ml/min Est GFR (Non-Af Amer) ml/min BUN/Creatinine Ratio (10-20) Glucose (70-99) mg/dl Calcium (8.5-10.1) mg/dl Total Bilirubin (0.2-1) mg/dl AST (15-37) U/L ALT (12-78) Alkaline Phosphatase (45-117) U/L Troponin I (0-0.045) ng/ml Total Protein (6.4-8.2) gm/dl Albumin (3.4-5.0) gm/dl Globulin (2.5-4.0) gm/dl Albumin/Globulin Ratio (0.9-2) Lipase (73-393) U/L SARS-CoV-2 (PCR) NEGATIVE (Negative) Influenza Type A (PCR) Negative (Neg) Influenza Type B (PCR) Negative (Neg) RSV (RT-PCR) Negative (Neg) Administered Medications Potassium Chloride/Sodium Chloride (Normal Saline W/20 Meq Kcl) 20 meq in 1,000 mls @ 100 mls/hr IV .Q10H PANDA; Protocol Stop: 03/07/21 23:29 Last Admin: 02/06/21 00:21 Dose: 100 mls/hr Documented by: [id number] Discontinued Medications Ioversol (Optiray 320 125ml) 120 ml IV ONCE ONE Stop: 02/05/21 21:58 Last Admin: 02/05/21 21:58 Dose: 120 ml Documented by: [id number] Morphine Sulfate (Morphine Sulfate 4 Mg/Ml 1 Ml Carp\\Vial) 4 mg IV NOW STA Stop: 02/05/21 19:23 Last Admin: 02/05/21 19:48 Dose: 4 mg Documented by: [id number] Imaging Data Radiologist's Impression: Chest X-Ray 02/05/21 19:22 XR chest 1V portable CLINICAL HISTORY: Chest Pain. COMPARISON STUDY: 07/14/2019 TECHNIQUE: 1 view of the chest FINDINGS: Single frontal view of the chest demonstrates the heart size to be within normal limits status post previous cardiothoracic surgery and pacer placement. There is again marked asymmetric elevation of the right hemidiaphragm with crowding of bronchovascular markings at the right lung base. The lungs are otherwise clear of alveolar opacities. There is no evidence for pleural effusion. There is no evidence for vascular congestion. There is no acute osseous pathology. IMPRESSION: No acute cardiopulmonary disease. Marked asymmetric elevation the right hemidiaphragm with crowding of the bronchovascular markings at the right lung base. ACT 112: Negative or not required by law. Electronically signed by: Armando Lanza M.D. 02/05/2021 7:52 PM Chest CTA 02/05/21 21:28 CT angio chest PE protocol CLINICAL HISTORY: Shortness of breath and chest pain. Evaluate for pulmonary embolus COMPARISON STUDY: Portable chest from 02/05/2021 CT DOSE: 844.96 mGy.cm TECHNIQUE: CT Angio of the chest was performed.followed by image post processing with coronal, and sagittal MIP reformats. Contrast Volume: Optiray 320, 120 ml FINDINGS: Vasculature: There is homogeneous perfusion of the pulmonary vasculature bilaterally. No intraluminal filling defects or evidence for pulmonary embolus is seen. Airway: The airway is clear. No endobronchial lesion is identified. Lungs: There is again asymmetric elevation right hemidiaphragm with crowding the bronchovascular markings at the right lung base and right basilar atelectasis posteriorly. The lungs are clear of acute alveolar opacities, air bronchograms or pulmonary nodules. Pleura: There is no evidence for pleural effusion. There is no evidence for pneumothorax. Mediastinum: There is no evidence for pathologic adenopathy. The heart size is within normal limits. There is prominent atherosclerotic calcification present of the coronary arteries. Permanent cardiac pacer is in place. The thoracic aorta is within normal limits. Mild atherosclerotic calcification is present. There is no evidence for pericardial effusion. Upper abdomen:The adrenal glands are normal bilaterally. The gallbladder is dist ended. Osseous structures: There is no acute osseous pathology. Impression: 1. No CTA evidence for pulmonary embolus. 2. As noted radiographically, there is asymmetric elevation of the right hemidiaphragm with crowding of the bronchovascular markings at the right lung base. 3. There is also right basilar atelectasis posteriorly with otherwise no acute chest disease. 4. Coronary artery calcification. ACT 112: Negative or not required by law. Electronically signed by: Armando Lanza M.D. 02/05/2021 10:15 PM Discharge Plan Visit Data Chief Complaint: Chest Pain Stated Complaint: Chest Pain ED Provider: Mracus Mata Discharge Problem: Chest pain, Transaminitis Forms Stand Alone Forms: [facility] Prescriptions Prescriptions: No Action metolazone 2.5 mg tablet 2.5 mg PO UD RF: 0 metoprolol succinate 100 mg capsule,sprinkle,ER 24hr 100 mg PO QAM RF: 0 torsemide 10 mg tablet 20 mg PO QAM RF: 0 warfarin [Jantoven] 5 mg tablet 2.5 - 5 mg PO QPM RF: 0 isosorbide dinitrate 30 mg tablet 30 mg PO QAM RF: 0 clopidogrel 75 mg tablet 75 mg PO QAM RF: 0 potassium chloride 20 mEq packet 60 meq PO BID RF: 0 atorvastatin 80 mg tablet 80 mg PO QPM RF: 0 Multivitamin 50 Plus Tablet 1 tab PO QAM RF: 0 calcium carbonate-vitamin D3 [Calcium 500 + D] 500 mg(1,250mg) -200 unit Tablet 1 tab PO QAM RF: 0 cholecalciferol (vitamin D3) [Vitamin D3] 125 mcg (5,000 unit) Tablet 125 mcg PO 5XWK RF: 0 levothyroxine 75 mcg tablet 75 mcg PO DAILY RF: 0 Referrals Referrals: Johnathan Adler MD [Primary Care Provider] - Discharge Problem: Chest pain Qualifiers: Chest pain type: unspecified Qualified Code(s): R07.9 - Chest pain, unspecified
[2021-02-05 19:39] LABS: Basophils # (auto) 0.03 K/uL (0-0.2); Basophils % (auto) 0.2 %; Eosinophils # (auto) 0.02 K/uL (0-0.5); Eosinophils % (auto) 0.1 %; Hematocrit (blood only) 48.9 % (42-52); Hemoglobin 15.8 g/dL (14.0-18.0); Immature Granulocytes # (auto) 0.04 K/uL (0.00-0.02); Immature Granulocytes % (auto) 0.3 %; Lymphocytes # (auto) 0.31 K/uL (1.2-3.4); Mean Corpuscular Hemoglobin 31.9 pg (25-34); Mean Corpuscular Hgb Conc 32.3 g/dL (32-36); Mean Corpuscular Volume 98.6 fL (80-100); Mean Platelet Volume 10.9 fL (7.4-10.4); Monocytes # (auto) 0.83 K/uL (0.11-0.59); Monocytes % (auto) 5.3 %; Neutrophils # (auto) 14.33 K/uL (1.4-6.5); Neutrophils % (auto) 92.1 %; Platelet Count 327 K/uL (130-400); RDW Coefficient of Variation 15.7 % (11.5-14.5); RDW Standard Deviation 56.2 fL (36.4-46.3); Red Blood Count 4.96 M/uL (4.7-6.1); White Blood Count 15.56 K/uL (4.8-10.8)
--- NOTE | 2021-02-05 19:53 | XRay Report ---
XR chest 1V portable CLINICAL HISTORY: Chest Pain. COMPARISON STUDY: 07/14/2019 TECHNIQUE: 1 view of the chest FINDINGS: Single frontal view of the chest demonstrates the heart size to be within normal limits status post p revious cardiothoracic surgery and pacer placement. There is again marked asymmetric elevation of the right hemidiaphragm with crowding of bronchovascular markings at the right lung base. The lungs are otherwise clear of alveolar opacities. There is no evidence for pleural effusion. There is no evidenc e for vascular congestion. There is no acute osseous pathology. IMPRESSION: No acute cardiopulmonary disease. Marked asymmetric elevation the right hemidiaphragm wit h crowding of the bronchovascular markings at the right lung base. ACT 112: Negative or not required by law. Electronically signed by: Armando Lanza M.D. 02/05/2021 7:52 PM
[2021-02-05 19:56] LABS: Prothrombin Time 19.3 Seconds (9.0-12.0)
[2021-02-05 19:59] LABS: Alanine Aminotransferase 132 (12-78); Albumin Level 3.1 gm/dl (3.4-5.0); Aspartate Aminotransferase 212 U/L (15-37); BUN Creatinine Ratio 19.9 (10-20); Blood Urea Nitrogen 35 mg/dl (7-18); Calcium 10.2 mg/dl (8.5-10.1); Carbon Dioxide 31 mmol/L (21-32); Chloride 101 mmol/L (98-107); Creatinine Clr Calc Pharmacy 42.8 ml/min; Est GFR (African American) 43.2 ml/min; Est GFR (Non-African American) 37.3 ml/min; Glucose 137 mg/dl (70-99); Lipase 745 U/L (73-393); Potassium 2.9 mmol/L (3.5-5.1); Sodium 140 mmol/L (136-145)
[2021-02-05 20:04] LABS: Albumin Globulin Ratio 0.6 (0.9-2); Alkaline Phosphatase 317 U/L (45-117); Bilirubin,Total 4.9 mg/dl (0.2-1); Total Protein 8.1 gm/dl (6.4-8.2); Troponin I < 0.015 ng/ml (0-0.045)
[2021-02-05] MEDS ORDERED: OPTIRAY 320 125ml IV ONE (21:57)
--- NOTE | 2021-02-05 22:16 | CT Scan Report ---
CT angio chest PE protocol CLINICAL HISTORY: Shortness of breath and chest pain. Evaluate for pulmonary embolus COMPARISON STUDY: Portable chest from 02/05/2021 CT DOSE: 844.96 mGy.cm TECHNIQUE: CT Angio of the chest was performed.followed by image post processing with coronal, and s agittal MIP reformats. Contrast Volume: Optiray 320, 120 ml FINDINGS: Vasculature: There is homogeneous perfusion of the pulmonary vasculature bilaterally. No intraluminal filling defects or evidence for pulmonary embolus is seen. Airway: The airway is clear. No endobronchial lesion is identified. Lungs: There is again asymmetric elevation right hemidiaphragm with crowding the bronchovascular harriet ings at the right lung base and right basilar atelectasis posteriorly. The lungs are clear of acute a lveolar opacities, air bronchograms or pulmonary nodules. Pleura: There is no evidence for pleural effusion. There is no evidence for pneumothorax. Mediastinum: There is no evidence for pathologic adenopathy. The heart size is within normal limits. There is prominent atherosclerotic calcification present of the coronary arteries. Permanent cardiac pacer is in place. The thoracic aorta is within normal limits. Mild atherosclerotic calcification is present. There is no evidence for pericardial effusion. Upper abdomen:The adrenal glands are normal bilaterally. The gallbladder is distended. Osseous structures: There is no acute osseous pathology. Impression: 1. No CTA evidence for pulmonary embolus. 2. As noted radiographically, there is asymmetric elevation of the right hemidiaphragm with crowding of the bronchovascular markings at the right lung base. 3. There is also right basilar atelectasis posteriorly with otherwise no acute chest disease. 4. Coronary artery calcification. ACT 112: Negative or not required by law. Electronically signed by: Armando Lanza M.D. 02/05/2021 10:15 PM
[2021-02-05] MEDS ORDERED: NSS + 20MEQ KCL 20 MEQ/1,000 ML BAG IV SCH (23:30)
[2021-02-06 00:06] LABS: Influenza A virus by PCR Negative (Neg); Influenza B virus by PCR Negative (Neg); RSV by PCR Negative (Neg); SARS CoV2 RNA(COVID-19) InHosp NEGATIVE (Negative)
[2021-02-06] MEDS ORDERED: POTASSIUM CHLORIDE CRTAB 20 MEQ TABCR PO STA (03:16)
[2021-02-06] MEDS ORDERED: HYDROmorphone INJ 0.5 MG/0.5 ML SYR IV PRN (03:17)
[2021-02-06] MEDS ORDERED: PIPERACILL/TAZOBAC CONSULT ACTIVE PRN (03:18)
[2021-02-06] MEDS ORDERED: PIPERACILLIN/TAZOBACTAM 4.5 GM/120 ML BAG IV STA (04:13)
[2021-02-06] MEDS: SODIUM CHLORIDE 0.9% 1000ML 1,000 ML IV SCH ×2 (04:57→11:58)
[2021-02-06] MEDS ORDERED: ACETAMINOPHEN 325 MG TAB PO PRN (05:18)
[2021-02-06] MEDS ORDERED: ONDANSETRON INJ 2 MG/ML 2 ML VIAL IV PRN ×3 (05:18→17:09)
[2021-02-06] MEDS ORDERED: NITROGLYCERIN SL 0.4 MG/TAB TAB SL PRN (05:18)
--- NOTE | 2021-02-06 06:36 | History and Physical Report ---
DATE OF ADMISSION: 02/06/2021. CHIEF COMPLAINT: Abdominal discomfort and chest pain. HISTORY OF PRESENT ILLNESS: A 75-year-old male with past medical history significant for type 2 diabetes, currently not on any medications, hyperlipidemia, history of hyperthyroidism, obstructive sleep apnea, CAD status post CABG x2 and status post stents, chronic systolic and diastolic CHF, history of AV block third degree, status post pacemaker, history of chronic atrial fibrillation, left bundle-branch block, morbid obesity, chronic kidney disease stage III, gouty arthropathy, low back pain, history of blood clots, currently lives alone at home, ambulates with a cane. Comes here because of feeling of chest pain since yesterday. The patient states since yesterday 1:00 to 2:00 p.m., he noticed some indigestion kind of feeling, some abdominal discomfort with pain radiating to the chest and it was not getting better, so came to the ER. It was very severe in nature. With the morphine, the pain is currently resolved. When he was having the pain, he also was nauseous and denies any shortness of breath, feels some cold and chills. No fever, no headache, no blurred vision, no earache, no runny nose, no sore throat. No cough. Appetite is okay. No diarrhea or constipation, no blood in stool or black stools. Normal bladder movements. No swelling in the legs. Currently resting comfortably and hemodynamically stable. ALLERGIES: SULFA ANTIBIOTICS. PAST MEDICAL HISTORY: As mentioned above. PAST SURGICAL HISTORY: CABG, cardiac stent, cataract surgery, pacemaker placement, fem-pop artery revascularization with stent and angioplasty in , right reverse total shoulder arthroplasty. MEDICATIONS: The patient is on atorvastatin 80 mg p.o. p.m., calcium plus vitamin D one tablet p.o. a.m., vitamin D 125 mcg p.o. 5 times a week, Plavix 75 mg p.o. a.m., isosorbide mononitrate 30 mg p.o. a.m., levothyroxine 75 mcg p.o. daily, metolazone 2.5 mg twice weekly on Saturday and , metoprolol succinate 100 mg p.o. a.m., multivitamin 1 tablet p.o. a.m., potassium chloride 60 mEq p.o. b.i.d. and takes extra 4 tablets twice a week with metolazone, torsemide 20 mg p.o. daily, warfarin 2.5 to 5 mg p.o. p.m. FAMILY HISTORY: Significant for father had abdominal aortic aneurysm and three MIs; mother has heart disorder. SOCIAL HISTORY: , former smoker, quit in 1999, smoked 1 pack a day for 33 years. No alcohol use. No drug use. REVIEW OF SYSTEMS: As per HPI. Rest of the review of systems is negative. PHYSICAL EXAMINATION: GENERAL: The patient is obese, not in acute distress currently. VITAL SIGNS: Temperature 36.4, pulse 60, respiratory rate 16, blood pressure 96/64, oxygen 95% on room air. HEENT: Pupils equal, round and reactive to light. Oral mucosa moist. NECK: No JVD, no neck masses. CARDIOVASCULAR: S1 and S2 heard. Regular rate and rhythm. No murmur, no gallop. RESPIRATORY SYSTEM: Normal AP diameter. No accessory muscle use. No wheezing, no crackles. ABDOMEN: Soft, bowel sounds present, nontender, no distention. CENTRAL NERVOUS SYSTEM: Cranial nerves II-XII grossly intact, nonfocal. EXTREMITIES: No edema, no erythema. LABORATORY DATA: WBC 15.5, hemoglobin 15.8, hematocrit 48.9, platelets 327. PT 19.3, INR 2. Sodium 140, potassium 2.9, chloride 101, bicarbonate 21, BUN 35, creatinine 1.7, serum glucose 137, calcium 10.2, total bilirubin 4.9, AST 212, ALT 132, alkaline phosphatase 317. Troponin I less than 0.015. Lipase 745. SARS-CoV-2 PCR negative. Influenza A and B PCR negative. RSV PCR negative. IMAGING DATA: CT of the chest, no PE, asymmetric elevation of right hemidiaphragm with crowding of the bronchovascular markings in the right lung base, right basilar atelectasis. Chest x-ray, no acute findings. Gallbladder ultrasound, preliminary report, there appears to be a gallstone versus some sludge, no gallbladder wall thickening or pericholecystic fluid. No bile duct dilatation with common bile duct measuring 4.5 mm. The liver appeared grossly unremarkable, but is not optimally visualized. Pancreas is not visualized. EKG: Ventricular paced rhythm at a rate of 83. ASSESSMENT AND PLAN: This is a 75-year-old male who presents with abdominal pain, chest pain. 1. Chest pain could be coming from his abdomen, but with his history of CAD, CABG and stents placement and history of diabetes, hypertension, because of these factors, will do serial enzymes, echo, keep him n.p.o. and consult cardiology in the a.m. 2. Elevated LFTs with elevated bilirubin of 4.9. AST, ALT elevated at 212 and 132, alkaline phosphatase 317. The patient Initially had indigestion kind of feeling. Currently, no abdominal tenderness. Gallbladder ultrasound preliminary report shows gallstones, but no CBD stone and no CBD dilatation, but we will get an MRCP because the patient is also having leukocytosis. Will empirically start on Zosyn. ER already talked to surgery and will be consulted. Will also consult GI. Will place on IV fluids, n.p.o., IV Dilaudid p.r.n. for pain. Lipase is elevated 745, will repeat lipase. 3. Hypokalemia: We will replace. Follow the repeat labs. 4. Chronic kidney disease stage III: Baseline creatinine around 1.4, currently creatinine of 1.7. Avoid nephrotoxic agents. Getting fluids. Follow the repeat labs. 5. History of coronary artery disease, status post CABG, status post stents. Continue his home medication of Plavix, Imdur, metoprolol, and statin. 6. Chronic diastolic and systolic congestive heart failure: Recent echo in March 2019, EF is 50% to 55%. Holding his home diuretics and potassium supplements. Getting fluids. Continue metoprolol succinate. Monitor for volume overload. 7. History of paroxysmal atrial fibrillation, history of blood clots, on metoprolol with rate control on Coumadin. INR is 2. Holding Coumadin for any procedures. Follow PT/INR. 8. Diabetes: Not on any medication. Placed on insulin sliding scale. Will follow the blood sugars. 9. Hyperlipidemia: Continue statin. 10. Obesity: Needs counseling. 11. Hypothyroidism: Continue Synthroid. 12. Hypertension. Continue Imdur, metoprolol. Holding diuretics. Will monitor the blood pressure. Currently, blood pressure is on the lower side. 13. History of AV block, third degree: Status post cardiac pacemaker. 14. Deep venous thrombosis prophylaxis. Currently INR is 2. Will place on sequential compression devices. Holding Coumadin for any planned procedures. DISPOSITION: Admit to med tele. PT/OT prior to discharge. Social service to help with discharge planning. Job ID: [id number] [email or web address]
[2021-02-06 06:40] LABS: Hematocrit (blood only) 44.6 % (42-52); Hemoglobin 14.1 g/dL (14.0-18.0); Mean Corpuscular Hemoglobin 31.8 pg (25-34); Mean Corpuscular Hgb Conc 31.6 g/dL (32-36); Mean Corpuscular Volume 100.5 fL (80-100); Mean Platelet Volume 11.3 fL (7.4-10.4); Platelet Count 288 K/uL (130-400); RDW Coefficient of Variation 16.2 % (11.5-14.5); RDW Standard Deviation 59.1 fL (36.4-46.3); Red Blood Count 4.44 M/uL (4.7-6.1); White Blood Count 26.74 K/uL (4.8-10.8)
[2021-02-06 06:44] LABS: Appearance Urine Clear (Clear); Bacteria Urine Automated Negative (Negative); Blood Urine Negative (Negative); Color Urine Dark Yellow; Epithelial Cell Urine Auto 20-30 /lpf (0-5); Glucose Urine UA Negative (Negative); Ketones Urine Negative (Negative); Leukocyte Esterase Urine Negative (Negative); Nitrite Urine Negative (Negative); Protein Urine Trace (Negative); RBC Urine Automated 0-4 /hpf (0-4); Specific Gravity Urine 1.043 (1.000-1.030); Urobilinogen Urine Negative (Negative); pH Urine 5.5 (4.5-7.5)
[2021-02-06 06:46] LABS: INR 2.2 (0.9-1.1); Prothrombin Time 20.9 Seconds (9.0-12.0)
[2021-02-06] MEDS: INSULIN ASPART PER UNIT SC SCH ×3 (06:50→18:33)
[2021-02-06 06:55] LABS: Bilirubin Urine 1+ (Negative)
[2021-02-06 07:06] LABS: BUN Creatinine Ratio 17.1 (10-20); Blood Urea Nitrogen 38 mg/dl (7-18); Calcium 9.5 mg/dl (8.5-10.1); Carbon Dioxide 28 mmol/L (21-32); Chloride 100 mmol/L (98-107); Creatinine Clr Calc Pharmacy 33.3 ml/min; Est GFR (African American) 31.8 ml/min; Est GFR (Non-African American) 27.5 ml/min; Glucose 182 mg/dl (70-99); Magnesium 2.3 mg/dl (1.8-2.4); Potassium 4.1 mmol/L (3.5-5.1); Sodium 136 mmol/L (136-145); Troponin I < 0.015 ng/ml (0-0.045)
[2021-02-06 07:08] LABS: Basophils # (auto) 0.02 K/uL (0-0.2); Basophils % (auto) 0.1 %; Eosinophils # (auto) 0.01 K/uL (0-0.5); Immature Granulocytes # (auto) 0.07 K/uL (0.00-0.02); Immature Granulocytes % (auto) 0.3 %; Lymphocytes # (auto) 1.25 K/uL (1.2-3.4); Lymphocytes % (auto) 4.7 %; Monocytes # (auto) 1.69 K/uL (0.11-0.59); Monocytes % (auto) 6.3 %; Neutrophils % (auto) 88.6 %
--- NOTE | 2021-02-06 07:11 | Ultrasound Report ---
US gallbladder CLINICAL HISTORY: Elevated bilirubin, abdominal pain COMPARISON STUDY: CT of the abdomen and pelvis March 15, 2013. FINDINGS: Exam is compromised by suboptimal penetration. No hepatic lesions are identified. There is no biliary ductal dilatation. The common bile duct measures 5 mm in caliber. The gallbladder is diste nded. Stones and sludge within the gallbladder are noted. There is no gallbladder wall thickening. So nographic Larry sign could not be assessed for in this patient. There is no pericholecystic fluid. N o right hydronephrosis is present. There is a possible 2.1 cm solid lesion within the midpole the rig ht kidney. IMPRESSION: 1. Cholelithiasis and gallbladder distention. The findings are equivocal for acute cholecystitis. A h epatobiliary scan could be obtained as indicated. 2. No biliary ductal dilatation. 3. Possible 2.1 cm solid right renal lesion. Nonemergent renal protocol CT is recommended for further evaluation ACT 112: Positive. There are findings on this exam that require communication between the performing entity and the patient following Patient Test Result Information Act ([place] Act 112) guidelines. Electronically signed by: Dagoberto Gaming M.D. 02/06/2021 7:10 AM
--- NOTE | 2021-02-06 07:48 | Electrocardiogram Report ---
Test Reason : Blood Pressure : / mmHG Vent. Rate : 083 BPM Atrial Rate : 085 BPM P-R Int : 000 ms QRS Dur : 182 ms QT Int : 466 ms P-R-T Axes : 000 -59 106 degrees QTc Int : 547 ms Atrial and Ventricular-paced rhythm Abnormal ECG When compared with ECG of 14-JUL-2019 15:08, Vent. rate has decreased BY 8 BPM Confirmed by Pablo Dalal ([id number]) on 02/06/2021 7:48:16 AM Referred By: REFERRED SELF Confirmed By:Kevin Dalal
[2021-02-06 07:51] LABS: Albumin Level 2.6 gm/dl (3.4-5.0); Bilirubin Direct 5.9 mg/dl (0-0.2); Bilirubin,Total 7.3 mg/dl (0.2-1); Total Protein 6.8 gm/dl (6.4-8.2)
--- NOTE | 2021-02-06 09:13 | Cardiology Consultation ---
Date of Consultation February 06, 2021 Assessment & Plan (1) Transaminitis: (2) Chest pain: (3) CAD (coronary artery disease): (4) BREANNA (acute kidney injury): (5) Atrial fibrillation with controlled ventricular rate: (6) PVD (peripheral vascular disease): Patient admitted with CP/abdominal pain, found to have significantly elevated lipase and LFT's. Gallstones noted. GI and Gen Surgery consulted Having ERCP later today for further evaluation. His chest pain was atypical for cardiac etiology. Prelim echo report reveals stable findings with normal LVEF 50-54% Cardiac enzymes unremarkable. Acceptable to hold Coumadin for upcoming procedures. Given chronic afib, high CHADSVASC score, consider heparin bridge when INR < 2. He is on chronic plavix due to complex CAD and PVD. If this needs held, would replace with ASA 81 mg daily without interruption. Hold torsemide and metolazone given BREANNA, rising creatinine. Baseline around 1.4. Avoid nephrotoxin agents if possible. Case to be discussed with Dr. Matthews Will follow. Supervising Physician Co-Signing Physician Notes Patient seen and examined with Ceci Suero PA-C. Agree with findings and assessment as above. Feeling much better today. Do not see any cardiac component to his presenting complaints. Okay to hold Coumadin for upcoming procedures. If necessary, Plavix can be substituted for with aspirin 81 mg daily. History of Present Illness Reason for Consultation: Chest pain Requesting Physician: Dr. Nguyễn Attending Physician: Brandon Espino MD History of Present Illness Patient is a 75 year old male who is known to [facility], following with Dr. Vences for history of chronic CAD s/p CABG x2 in 1999 (SIMS to LAD- later found to be occluded), and SVG to RCA (also later found to be occluded in 2002, PCI with [facility] to the [place] mid LAD, chronic diastolic HF wiht chronic LE edema, pacemaker secondary to high degree AV block, chronic afib with chronic RV pacing, PVD with prior Fem-pop bypass. He is on chronic plavix due to his PVD and CAD and chronic Coumadin due to afib. Last echo in 2019 with low normal LVEF at 50% and negative nuclear stress test at that time. Patient was in normal state of health until yesterday late morning when patient developed diffuse abdominal pain and chest pain with SOB. Symptoms felt like "bad indigestion" but due to severity and no improvement over several hours he came to ER for evaluation. Lipase, bilirubin and all LFT's were significantly elevated. Troponin was negative x3. Cardiology was consulted due to chest pain and underlying history of CAD. Abd US demonstrated gallstones. GI and GEN surgery also consulted. Plan for ERCP today. Coumadin on hold. At time of consult, patient feeling somewhat better, but notes mild epigastric pain. No recurrent chest pain or dyspnea. No orthopnea, PND or worsening edema. Weight continues to trend down, as he has been concentrating on losing weight over the last year. No recent exertional chest pain or need for SL nitro. No worsening dyspnea with exertion. No change to his functional capacity. Patient reports similar episode of epigastric/chest pain several weeks ago, lasting 1-2 days and resolving. He did report to PCP or have testing completed at that time. Allergies Allergy/AdvReac Type Severity Reaction Status Date / Time Sulfa (Sulfonamide AdvReac Mild STOMACH Verified 02/06/21 14:15 Antibiotics) CRAMPS Home Medications Medication Instructions Recorded Confirmed Type atorvastatin 80 mg tablet 80 mg PO QPM 03/04/19 02/05/21 History clopidogrel 75 mg tablet 75 mg PO QAM 03/04/19 02/05/21 History isosorbide dinitrate 30 mg tablet 30 mg PO QAM tab 03/04/19 02/05/21 History metolazone 2.5 mg tablet 2.5 mg PO UD 03/04/19 02/05/21 History metoprolol succinate 100 mg 100 mg PO QAM 03/04/19 02/05/21 History capsule sprinkle, ext. release 24 hr potassium chloride 20 mEq oral 60 meq PO BID 03/04/19 02/05/21 History packet torsemide 10 mg tablet 20 mg PO QAM 03/04/19 02/05/21 History warfarin 5 mg tablet (Jantoven) 2.5 - 5 mg PO QPM 03/04/19 02/05/21 History calcium carbonate 500 mg-vitamin 1 tab PO QAM 07/09/19 02/05/21 History D3 5 mcg (200 unit) tablet (Calcium 500 + D) cholecalciferol (vitamin D3) 125 125 mcg PO 5XWK 07/09/19 02/05/21 History mcg (5,000 unit) tablet (Vitamin D3) [id number] 1 tab PO QAM 07/09/19 02/05/21 History tablet (Multivitamin 50 Plus) levothyroxine 75 mcg tablet 75 mcg PO DAILY 02/05/21 02/05/21 History Patient History Medical History Arthritis Atrial fibrillation on warfarin; follows with Dr. 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- now on 2-3L O2 daily DVT (deep venous thrombosis) 1997; unk etiology Gout Hypothyroidism no meds Myocardial Infarction 1999 Pacemaker Med[employer]onic implanted 2011, last check 02/2020 Skin cancer SCC Sleep apnea BIPAP + 2.5-3 L O2 HS Surgical History History of cardiac cath [facility] 1999 History of cardiac cath 2002 1 STENT [facility] History of cataract surgery left History of coronary artery bypass graft 2 VESSELS [facility] 1999 History of permanent cardiac pacemaker placement 2011 History of reverse total replacement of right shoulder joint (~07/2019) S/P vascular surgery RIGHT FEM-POP BYPASS GRAFT Family History Son Family history of diabetes mellitus Social History Smoking Status: Former smoker Tobacco Type: Cigarettes Second Hand Exposure: Yes (hx); Hx Alcohol Use: No Hx Substance Use: No Preferred Language: Filipino Communication Ability: Effective Visual Impairment: No Limitations Decal Applier Required: No Beliefs That Will Affect Care: None marital status: Current Living Situation: Spouse Feels Safe at Home: Yes Safety Concerns: Feels Safe At This Time Assistive Devices: Cane Review of Systems Review of Systems: All systems reviewed & are unremarkable except as noted in HPI & below Physical Exam Constitutional: WD/WN, vitals as above well developed; no acute distress Eyes: PERRL, conjunctivae normal, anicteric sclerae Neck: trachea midline, no thyromegaly Respiratory: normal respiratory effort, lungs clear to auscultation Cardiovascular: Rate/Rhythm: regular rate and regular rhythm Heart Sounds: normal S1 and normal S2; no murmur Vessels: no JVD Extremities: + edema (trace b/l edema) Gastrointestinal (Abdomen): Inspection/Auscultation: abdomen normal to inspection; abdomen not distended Percussion/Palpation: abdomen nontender Skin: no rashes, warm and dry Psychiatric: A+Ox3, euthymic affect Results & Data ([facility]) Vital Signs (Past 12 Hours) Vital Signs Temp Pulse Resp BP Pulse Ox Pulse Ox 02/06/21 08:03 36.7 C 61 20 124/71 97 02/06/21 06:28 98 02/06/21 06:01 36.7 C 70 20 125/71 97 02/06/21 06:00 36.7 C 87 24 125/71 96 02/06/21 04:00 60 22 100/64 97 02/06/21 02:00 60 16 96/64 L 95 02/06/21 00:00 60 16 94/53 L 98 Diagnostic Findings Telemetry reviewed: Atrial fib with Chronic RV pacing EKG on admission reviewed: atrial sensed, ventricular paced rhythm - stable from past findings Gallbladder US: IMPRESSION: 1. Cholelithiasis and gallbladder distention. The findings are equivocal for acute cholecystitis. A hepatobiliary scan could be obtained as indicated. 2. No biliary ductal dilatation. 3. Possible 2.1 cm solid right renal lesion. Nonemergent renal protocol CT is recommended for further evaluation Chest CTA report reviewed on admission: Impression: 1. No CTA evidence for pulmonary embolus. 2. As noted radiographically, there is asymmetric elevation of the right hemidiaphragm with crowding of the bronchovascular markings at the right lung base. 3. There is also right basilar atelectasis posteriorly with otherwise no acute chest disease. 4. Coronary artery calcification. Chest xray on admission: IMPRESSION: No acute cardiopulmonary disease. Marked asymmetric elevation the right hemidiaphragm with crowding of the bronchovascular markings at the right lung base Prior outside cardiac data: Pacemaker interrogation reviewed from Jan 2021: Appropriate function and battery longevity. VVIR mode. 99% RV pacing. 16 months battery longevity. Normal function. Nuclear stress test report reviewed from Mar 2019: Interpretation Summary Myocardial perfusion imaging is normal. Overall left ventricular systolic function was normal. Gated SPECT imaging compromised due to pacing and patient motion. Would defer resting wall motion analysis to echocardiogram of 03/17/2019. Compared to previous study of 10/11/16: no new ischemia, inferior scar resolved. Echo reviewed from Mar 2019: Interpretation Summary The examination is adequate to evaluate the referral indication. The left ventricular cavity size is normal. The LV wall thickness is borderline increased (concentric). The septal motion is abnormal consistent with right ventricular pacemaker. The remaining left ventricular wall segments are borderline hypokinetic. The qualitative LV ejection fraction is 50-54% (normal). The left ventricular diastolic function is abnormal by 2-D findings. The left atrium is severely enlarged. Mild tricuspid regurgitation is present. There is no evidence of pulmonary hypertension. Medications Administered Current Inpatient Medications Acetaminophen (Acetaminophen 325 Mg Tab) 650 mg PO Q4H PRN PRN Reason: Pain or Fever Stop: 03/08/21 05:17 Atorvastatin Calcium (Atorvastatin 40 Mg Tab) 80 mg PO QPM [facility] Stop: 03/08/21 20:59 Clopidogrel Bisulfate (Clopidogrel Bisulfate 75 Mg Tab) 75 mg PO QAM [facility] Stop: 03/08/21 08:59 Last Admin: 02/06/21 09:24 Dose: Not Given Documented by: Hydromorphone HCl (Hydromorphone Inj 0.5 Mg/0.5 Ml Syr) 0.5 mg IV Q4H PRN PRN Reason: Pain Stop: 02/20/21 03:16 Sodium Chloride (Nss 1000ml) 1,000 mls @ 125 mls/hr IV .Q8H [facility] Stop: 03/08/21 03:17 Last Admin: 02/06/21 04:57 Dose: 125 mls/hr Documented by: Piperacillin Sod/Tazobactam (Sod 4.5 gm/ Dextrose) 120 mls @ 30 mls/hr IV Q8H [facility]; Protocol Stop: 02/16/21 03:17 Insulin Aspart (Insulin Aspart Per Unit) 0 units SC Q6 [facility] Stop: 03/08/21 05:59 Last Admin: 02/06/21 06:50 Dose: Not Given Documented by: Isosorbide Dinitrate (Isosorbide Dinitrate 10 Mg Tab) 30 mg PO QAM [facility] Stop: 03/08/21 08:59 Levothyroxine Sodium (Levothyroxine Sodium 75 Mcg Tablet) 75 mcg PO DAILYBB [facility] Stop: 03/08/21 06:29 Last Admin: 02/06/21 09:23 Dose: Not Given Documented by: Metoprolol Succinate (Metoprolol Succ 50mg Ext Rel Tab) 100 mg PO QAM [facility] Stop: 03/08/21 08:59 Miscellaneous Information (Piperacill/Tazobac Consult Active) 1 ea N/A UD PRN PRN Reason: Consult Stop: 03/08/21 03:17 Multivitamins/Minerals (Calcium 600mg + Vit D 400 Iu Tab) 1 tab PO QAM [facility] Stop: 03/08/21 08:59 Last Admin: 02/06/21 09:23 Dose: Not Given Documented by: Multivitamins/Minerals (Cerovite Adv Formula Tab) 1 tab PO QAM [facility] Stop: 03/08/21 08:59 Last Admin: 02/06/21 09:24 Dose: Not Given Documented by: Nitroglycerin (Nitroglycerin Sl 0.4 Mg/Tab Tab) 0.4 mg SL UD PRN PRN Reason: Chest Pain Stop: 03/08/21 05:17 Ondansetron HCl (Ondansetron Inj 2 Mg/Ml 2 Ml Vial) 4 mg IV Q6H PRN PRN Reason: Nausea Stop: 03/08/21 05:17 Vitamin D (Cholecalciferol 5,000 Units 125 Mcg Tab) 5,000 units PO MoTuWeThFr [facility] Stop: 03/08/21 08:59 Last Admin: 02/06/21 09:23 Dose: Not Given Documented by: (1) Chest pain Chest pain type: unspecified Qualified Code(s): R07.9 - Chest pain, unspecified
[2021-02-06] MEDS ORDERED: PHYTONADIONE 10 MG in SODIUM CHLORIDE 0.9% 50 ML IV ONE (09:15)
[2021-02-06] MEDS: LEVOTHYROXINE SODIUM 75 MCG TABLET PO SCH (09:23)
[2021-02-06] MEDS: CHOLECALCIFEROL 5,000 UNITS 125 MCG TAB PO SCH (09:23)
[2021-02-06] MEDS: CALCIUM 600MG + VIT D 400 IU TAB PO SCH (09:23)
[2021-02-06] MEDS: CLOPIDOGREL BISULFATE 75 MG TAB PO SCH (09:24)
[2021-02-06] MEDS: CEROVITE ADV FORMULA TAB PO SCH (09:24)
[2021-02-06 09:27] LABS: INR 2.3 (0.9-1.1); Prothrombin Time 21.5 Seconds (9.0-12.0)
[2021-02-06 10:59] LABS: Estimated Average Glucose 151 mg/dl; Hemoglobin A1C 6.9 % (4.5-5.6)
[2021-02-06] MEDS: METOPROLOL SUCC 50MG EXT REL TAB PO SCH (11:18)
[2021-02-06] MEDS: ISOSORBIDE DINITRATE 10 MG TAB PO SCH (11:19)
--- NOTE | 2021-02-06 11:26 | Gastrointestinal Consultation ---
Date of Consultation February 06, 2021 Assessment & Plan (1) Cholelithiases: (2) Elevated LFTs: Stones in the gallbladder, elevated lipase, leukocytosis and elevated LFTs are very likely due to choledocholithiasis w cholangitis. Plan is for ERCP today in the OR by Dr. James. Vit K10mg given IV, will recheck INR. Please continue to hold Plavix/warfarin. Agree with Zosyn - please continue. Further recommends to follow ERCP. Supervising Physician Co-Signing Physician Notes Attg add: I interviewed and examined pt, reviewed chart and labs. Pt with abdominal pain that began shortly after fatty meal, similar episode two months ago that was less severe and self resolved. He also describes dark urine. Labs show LFT elevation, leukocytosis, lipase < 2 x ULN. At present, he feels well, with no further pain, s/p BM x1, with return of hunger. On exam, he appears well with mild abd tenderness on exam. Uls shows GB stones, no emmanuel dil, CTA shows GB distention. Likely choledocholithiasis, cholangitis - COnt Zosyn, plan EUS +/-ERCP. History of Present Illness Reason for Consultation: Elevated LFTs Requesting Physician: Dr. Nguyễn Attending Physician: Brandon Espino MD History of Present Illness Mr. Arnulfo Kirkpatrick is a 75 yr old male pt of Dr. Adler with a hx CAD/CHF CABG and prior stents, Cardiac pacer, Chronic A-fib on coumadin (last dose 02/04) and Plavix (last dose 02/05), AV block, sleep apnea with ory of chronic atrial fibrillation, left bundle-branch block, CKD3 who presented to the ED late yesterday for abodminal pain. GI is consulted for elevated LFTs. He describes colicky pain that began around 1PM yesterday. He also had a similar episode a few weeks ago that lasted a few hours for which he did not seek medical attention. He has had nausea, no vomiting. He had chills at home. He has had dark urine. He is awake, alert, oriented, hemodynamically stable. He provides a detailed hx. 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 His is at the bedside. On arrival in the ED, US with cholelithiasis. He has leukocytosis at 26 this morning (on Zosyn). His INR is elevated at 2.3 an he received 10meq of Vit K IV. LFTs were significantly elevated on arrival and worsened this morning: A Bili 4.9->5.9, AST 212->276, ALT 132->197, Alk Phos 132->278. Lipase is elevated initially at 745->417 this morning. Allergies Allergy/AdvReac Type Severity Reaction Status Date / Time Sulfa (Sulfonamide AdvReac Mild STOMACH Verified 02/05/21 20:46 Antibiotics) CRAMPS Home Medications Medication Instructions Recorded Confirmed Type atorvastatin 80 mg tablet 80 mg PO QPM 03/04/19 02/05/21 History clopidogrel 75 mg tablet 75 mg PO QAM 03/04/19 02/05/21 History isosorbide dinitrate 30 mg tablet 30 mg PO QAM tab 03/04/19 02/05/21 History metolazone 2.5 mg tablet 2.5 mg PO UD 03/04/19 02/05/21 History metoprolol succinate 100 mg 100 mg PO QAM 03/04/19 02/05/21 History capsule sprinkle, ext. release 24 hr potassium chloride 20 mEq oral 60 meq PO BID 03/04/19 02/05/21 History packet torsemide 10 mg tablet 20 mg PO QAM 03/04/19 02/05/21 History warfarin 5 mg tablet (Jantoven) 2.5 - 5 mg PO QPM 03/04/19 02/05/21 History calcium carbonate 500 mg-vitamin 1 tab PO QAM 07/09/19 02/05/21 History D3 5 mcg (200 unit) tablet (Calcium 500 + D) cholecalciferol (vitamin D3) 125 125 mcg PO 5XWK 07/09/19 02/05/21 History mcg (5,000 unit) tablet (Vitamin D3) [id number] 1 tab PO QAM 07/09/19 02/05/21 History tablet (Multivitamin 50 Plus) levothyroxine 75 mcg tablet 75 mcg PO DAILY 02/05/21 02/05/21 History Patient History Medical History Arthritis Atrial fibrillation on warfarin; follows with Dr. 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- now on 2-3L O2 daily DVT (deep venous thrombosis) 1997; unk etiology Gout Hypothyroidism no meds Myocardial Infarction 1999 Pacemaker Medtronic implanted 2011, last check 02/2020 Skin cancer SCC Sleep apnea BIPAP + 2.5-3 L O2 HS Surgical History History of cardiac cath [facility] 1999 History of cardiac cath 2002 1 STENT [facility] History of cataract surgery left History of coronary artery bypass graft 2 VESSELS [facility] 1999 History of permanent cardiac pacemaker placement 2011 History of reverse total replacement of right shoulder joint (~07/2019) S/P vascular surgery RIGHT FEM-POP BYPASS GRAFT Family History Son Family history of diabetes mellitus Social History Smoking Status: Former smoker Tobacco Type: Cigarettes Second Hand Exposure: Yes (hx); Hx Alcohol Use: No Hx Substance Use: No Preferred Language: Belarusian Communication Ability: Effective Visual Impairment: No Limitations [employer] Required: No Beliefs That Will Affect Care: None marital status: Current Living Situation: Spouse Feels Safe at Home: Yes Safety Concerns: Feels Safe At This Time Assistive Devices: BiPap and Hearing Aid - Bilateral Review of Systems Review of Systems: ROS: Gen: + chills, decreased appetite, nausea; no preceding weight loss or generalized fatigue Eyes: No yellow eyes or eye redness, or pain, no recent vision changes Resp: No SOB, no cough., + pain with deep breaths Cardio: No palpitations/irregular beats, no chest pain GI: as per HPI, otherwise (-) : + dark urine; no pain on urination Skin: No jaundice, itching or new rashes Physical Exam Constitutional: well developed and cooperative Eyes: PERRL, conjunctivae normal, anicteric sclerae Respiratory: normal respiratory effort, lungs clear to auscultation Cardiovascular: RRR, no murmur, no edema Gastrointestinal (Abdomen): Inspection/Auscultation: abdomen normal to inspection and normal bowel sounds; abdomen not distended and no abdominal edema Percussion/Palpation: + abdomen tender (epigastric and RUQ); no guarding, abdomen not rigid and no hepatosplenomegaly Skin: no rashes, warm and dry normal turgor Neurologic: PERRL, EOMI, accommodation nl, no face palsy, no dysarthria awake; not confused Psychiatric: A+Ox3, euthymic affect Orientation: alert, oriented x 3 and cooperative Results & Data ([facility]) Vital Signs (Past 12 Hours) Vital Signs Temp Pulse Resp BP Pulse Ox Pulse Ox 02/06/21 08:03 36.7 C 61 20 124/71 97 02/06/21 06:28 98 02/06/21 06:01 36.7 C 70 20 125/71 97 02/06/21 06:00 36.7 C 87 24 125/71 96 02/06/21 04:00 60 22 100/64 97 02/06/21 02:00 60 16 96/64 L 95 02/06/21 00:00 60 16 94/53 L 98 Laboratory Results WBC 26, Hb 14, Hct 44, Plts 288, INR 2.3, Na 136, K 4.1, Cl 100, CO2 28, BUN 38, Cr2.24 T Bili 7.3, D bili 5.9, AST 276, ALT 197, Alk PHos 278, Alb 2.6, Trop <0.015, Lipase 417. Urine 1+ bili COVID (-) Diagnostic Findings 1. Cholelithiasis and gallbladder distention. The findings are equivocal for acute cholecystitis. A hepatobiliary scan could be obtained as indicated. 2. No biliary ductal dilatation. 3. Possible 2.1 cm solid right renal lesion. Nonemergent renal protocol CT is recommended for further evaluation
[2021-02-06] MEDS: PIPERACILLIN/TAZOBACTAM 4.5 GM in DEXTROSE 5% 100 ML IV SCH ×2 (11:57→18:29)
[2021-02-06 13:19] LABS: INR 2.2 (0.9-1.1); Prothrombin Time 21.1 Seconds (9.0-12.0)
[2021-02-06] MEDS ORDERED: DEXAMETHASONE SOD INJ 4 MG/ML VIAL ONE (14:25)
[2021-02-06] MEDS ORDERED: GLYCOPYRROLATE 0.2 MG/ML VIAL ONE (14:25)
[2021-02-06] MEDS ORDERED: PROPOFOL IV EMULSION 10 MG/ML 20 ML VIAL IV ONE (14:25)
[2021-02-06] MEDS ORDERED: ONDANSETRON INJ 2 MG/ML 2 ML VIAL ONE (14:25)
[2021-02-06] MEDS ORDERED: NEOSTIGMINE METHYLSULFATE 1 MG/ML 10ML VIAL ONE (14:25)
[2021-02-06] MEDS ORDERED: LIDOCAINE 2% 2 ML VIAL/AMP(20MG/ML) INFIL ONE (14:25)
[2021-02-06] MEDS ORDERED: MIDAZOLAM HCL 1 MG/ML 2ML VIAL ONE (14:26)
[2021-02-06] MEDS ORDERED: ROCURONIUM BROMIDE 10 MG/ML 5 ML VIAL IV ONE (14:26)
[2021-02-06] MEDS ORDERED: LARYING-O-JET KIT (LTA) ONE (14:26)
[2021-02-06] MEDS ORDERED: fentaNYL citrate 100 MCG/2 ML VIAL ONE (14:26)
--- NOTE | 2021-02-06 14:36 | Anesthesiology Consultation ---
Date of Service February 06, 2021 Assessment & Plan (1) Encounter for pre-operative examination: History Surgery Operation Date: 02/06/21 09:40 Proposed Procedures p Endoscopic Retrograde Cholangiopancreatogram - Karan James MD Height/Weight Height: 5 ft 8 in Weight: 107 kg Allergies Allergy/AdvReac Type Severity Reaction Status Date / Time Sulfa (Sulfonamide AdvReac Mild STOMACH Verified 02/06/21 14:15 Antibiotics) CRAMPS Medications Home Medications Medication Instructions Recorded Confirmed Last Taken atorvastatin 80 mg tablet 80 mg PO QPM 03/04/19 02/05/21 02/04/21 clopidogrel 75 mg tablet 75 mg PO QAM 03/04/19 02/05/21 02/05/21 isosorbide dinitrate 30 mg tablet 30 mg PO QAM tab 03/04/19 02/05/21 02/05/21 metolazone 2.5 mg tablet 2.5 mg PO UD 03/04/19 02/05/21 02/05/21 metoprolol succinate 100 mg 100 mg PO QAM 03/04/19 02/05/21 02/05/21 capsule sprinkle, ext. release 24 hr potassium chloride 20 mEq oral 60 meq PO BID 03/04/19 02/05/21 02/05/21 packet torsemide 10 mg tablet 20 mg PO QAM 03/04/19 02/05/21 02/05/21 warfarin 5 mg tablet (Jantoven) 2.5 - 5 mg PO QPM 03/04/19 02/05/21 02/04/21 calcium carbonate 500 mg-vitamin 1 tab PO QAM 07/09/19 02/05/21 02/05/21 D3 5 mcg (200 unit) tablet (Calcium 500 + D) cholecalciferol (vitamin D3) 125 125 mcg PO 5XWK 07/09/19 02/05/21 02/05/21 mcg (5,000 unit) tablet (Vitamin D3) ganzzbcvibkp-ruujjeao-[id number] 1 tab PO QAM 07/09/19 02/05/21 02/05/21 tablet (Multivitamin 50 Plus) levothyroxine 75 mcg tablet 75 mcg PO DAILY 02/05/21 02/05/21 Unknown Active Medications Generic Name Dose Route Start Last Admin Trade Name Freq PRN Reason Stop Dose Admin Clopidogrel Bisulfate 75 mg 02/06/21 09:00 12/27/21 09:24 Clopidogrel Bisulfate 75 Mg Tab PO 03/08/21 08:59 Not Given QAM PANDA Sodium Chloride 1,000 mls @ 125 mls/hr 02/06/21 03:18 02/06/21 11:58 Nss 1000ml IV 03/08/21 03:17 125 mls/hr .Q8H PANDA Administration Piperacillin Sod/Tazobactam 120 mls @ 30 mls/hr 02/06/21 03:18 02/06/21 11:57 Sod 4.5 gm/ Dextrose IV 02/16/21 03:17 30 mls/hr Q8H PANDA Administration Protocol Insulin Aspart 0 units 02/06/21 06:00 02/06/21 12:16 Insulin Aspart Per Unit SC 03/08/21 05:59 Not Given Q6 PANDA Isosorbide Dinitrate 30 mg 02/06/21 09:00 02/06/21 11:19 Isosorbide Dinitrate 10 Mg Tab PO 03/08/21 08:59 30 mg QAM PANDA Administration Levothyroxine Sodium 75 mcg 02/06/21 06:30 02/06/21 09:23 Levothyroxine Sodium 75 Mcg Tablet PO 03/08/21 06:29 Not Given DAILYBB PANDA Metoprolol Succinate 100 mg 02/06/21 09:00 02/06/21 11:18 Metoprolol Succ 50mg Ext Rel Tab PO 03/08/21 08:59 100 mg QAM PANDA Administration Multivitamins/Minerals 1 tab 02/06/21 09:00 02/06/21 09:23 Calcium 600mg + Vit D 400 Iu Tab PO 03/08/21 08:59 Not Given QAM [facility] Multivitamins/Minerals 1 tab 02/06/21 09:00 02/06/21 09:24 Cerovite Adv Formula Tab PO 03/08/21 08:59 Not Given QAM [facility] Vitamin D 5,000 units 02/06/21 09:00 02/06/21 09:23 Cholecalciferol 5,000 Units 125 Mcg Tab PO 03/08/21 08:59 Not Given MoTuWeThFr [facility] NPO Date Last Intake of Fluids: 02/06/21 Time Last Intake of Fluids: 05:00 Date Last Intake of Solids: 02/04/21 Time Last Intake of Solids: 10:00 Past Medical History Medical History Arthritis Atrial fibrillation on warfarin; follows with Dr. 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- now on 2-3L O2 daily DVT (deep venous thrombosis) 1997; unk etiology Gout Hypothyroidism no meds Myocardial Infarction 1999 Pacemaker Medtronic implanted 2011, last check 02/2020 Skin cancer SCC Sleep apnea BIPAP + 2.5-3 L O2 HS Past Family History Family History Son Family history of diabetes mellitus Past Surgical History Surgical History History of cardiac cath [facility] 1999 History of cardiac cath 2002 1 STENT [facility] History of cataract surgery left History of coronary artery bypass graft 2 VESSELS [facility] 1999 History of permanent cardiac pacemaker placement 2011 History of reverse total replacement of right shoulder joint (~07/2019) S/P vascular surgery RIGHT FEM-POP BYPASS GRAFT Social History Smoking Status: Former smoker tobacco type: cigarettes and smokeless tobacco Hx Alcohol Use: No Hx Substance Use: No substance use type: does not use Physical Exam Vital Signs Last Vital Signs Temp 37.3 C 02/06/21 14:17 Pulse 78 02/06/21 14:17 Resp 16 02/06/21 14:17 BP 118/70 02/06/21 14:17 Pulse Ox 96 02/06/21 14:17 Testing Laboratory Results 02/06/21 06:09 02/06/21 06:09 PT 21.1 Seconds (9.0-12.0) H 02/06/21 12:54 INR 2.2 (0.9-1.1) H 02/06/21 12:54 Hemoglobin A1c 6.9 % (4.5-5.6) H 02/06/21 06:09 Urine Color Dark Yellow 02/06/21 06:00 Urine Appearance Clear (Clear) 02/06/21 06:00 Urine pH 5.5 (4.5-7.5) 02/06/21 06:00 Ur Specific [place] 1.043 (1.000-1.030) H 02/06/21 06:00 Urine Protein Trace (Negative) H 02/06/21 06:00 Urine Glucose (UA) Negative (Negative) 02/06/21 06:00 Urine Ketones Negative (Negative) 02/06/21 06:00 Urine Nitrite Negative (Negative) 02/06/21 06:00 Ur Leukocyte Esterase Negative (Negative) 02/06/21 06:00 Urine WBC (Auto) 1-5 /hpf (0-5) 02/06/21 06:00 Urine RBC (Auto) 0-4 /hpf (0-4) 02/06/21 06:00 U Hyaline Cast (Auto) 1-5 /lpf (0-5) 02/06/21 06:00 U Epithel Cells (Auto) 20-30 /lpf (0-5) H 02/06/21 06:00 Urine Bacteria (Auto) Negative (Negative) 02/06/21 06:00 02/06/21 02/06/21 11:31 06:42 POC Glucose 126 H 158 H Electrocardiogram Date: 02/05/21 Atrial and Ventricular-paced rhythm Abnormal ECG When compared with ECG of 14-JUL-2019 15:08, Vent. rate has decreased BY 8 BPM Confirmed by Pablo Dalal ([id number]) on 02/06/2021 7:48:16 AM Chest X-Ray Date: 02/05/21 IMPRESSION: No acute cardiopulmonary disease. Marked asymmetric elevation the right hemidiaphragm with crowding of the bronchovascular markings at the right lung base. Echocardiogram Date: 02/06/21 EF: 50-55% UNCHANGED FROM PRIOR ECHO
[2021-02-06] MEDS ORDERED: ePHEDrine sulfate 50 MG/ML AMP IV PRN ×2 (14:49→17:09)
[2021-02-06] MEDS ORDERED: fentaNYL citrate 100 MCG/2 ML VIAL IV PRN ×2 (14:49→17:09)
[2021-02-06] MEDS ORDERED: ATROPINE SULFATE 0.1 MG/ML 10ML SYR IV PRN ×2 (14:49→17:09)
--- NOTE | 2021-02-06 15:22 | History & Physical Bridge Note ---
Date of Service February 06, 2021 History & Physical Bridge Note I have examined the patient, reviewed the History & Physical and in the interval since the performance of the History & Physical I have noted the following changes of clinical significance: no changes noted EUS/ERCP Patient was explained in detail regarding risks, benefits, limitations and alternatives of the above endoscopic procedure. Risks of intravenous sedation used for procedure were also explained. Risks include, but not limited to perf oration, bleeding, infection, respiratory distress, cardiac arrest and . Patient is also aware about the possibility of missed lesion. Patient's questions were answered. The patient verbalized understanding the information and agreed to undergo the procedure.
[2021-02-06] MEDS ORDERED: PHENYLEPHRINE HCL 10 MG/ML VIAL ONE (15:49)
--- NOTE | 2021-02-06 16:06 | Surgery Consultation ---
Date of Consultation February 06, 2021 Assessment & Plan (1) Elevated LFTs: (2) Chest pain: (3) Transaminitis: (4) Abdominal pain: 75 year-old male who presented to emergency department with chest pain, shortness of breath, and abdominal pain. ER work-up showed gallstones with sludge and normal CBD. elevated t. bili to 7 and leukocytosis of 26K. Troponin wnl. Abdominal exam with RUQ tenderness. Hemodynamically stable. Plan: Given leukocytosis, t. bili of 7 and sludge and stones in gallbladder concerned for choledocholithiasis and cholangitis. Going for ERCP today as unable to get MRCP due to pacemaker. Keep NPO IV Zosyn Will await results of ERCP to determine need/timing for cholecystectomy Dr. Lazaro has seen and examined pt, agrees with above. History of Present Illness Reason for Consultation: elevated bilirubin, gallbladder disease Requesting Physician: Dr. Camden Nguyễn MD Attending Physician: Brandon Espino MD History of Present Illness Mr. Arnulfo Kirkpatrick is a 75 yr old male pt of Dr. Adler with a hxCAD/CHF CABG and prior stents, Cardiac pacer, Chronic A-fib on coumadin (last dose 02/04) and Plavix (last dose 02/05), AV block, sleep apnea, chronic atrial fibrillation, left bundle-branch block, CKD3 who presented to the ED late yesterday for chest pain and shortness of breath. States he had abdominal pain that spread up into his chest and caused shortness of breath starting at 1 pm yesterday a few hours after eating breakfast. He states pain was generalized in his abdomen but severe in his chest. Had same abdominal pain about 2 weeks ago that resolved on its own and was not this severe. Associated nausea but no vomiting. No fevers or chills. Bowel movements have been regular but urine looks like tea. present at bedside and did not notice any jaundice. Denies of acholic stools or generalized itching. He is on chronic Plavix for his stents and Coumadin for atrial fibrillation. No prior abdominal surgeries. Allergies Allergy/AdvReac Type Severity Reaction Status Date / Time Sulfa (Sulfonamide AdvReac Mild STOMACH Verified 02/06/21 14:15 Antibiotics) CRAMPS Home Medications Medication Instructions Recorded Confirmed Type atorvastatin 80 mg tablet 80 mg PO QPM 03/04/19 02/05/21 History clopidogrel 75 mg tablet 75 mg PO QAM 03/04/19 02/05/21 History isosorbide dinitrate 30 mg tablet 30 mg PO QAM tab 03/04/19 02/05/21 History metolazone 2.5 mg tablet 2.5 mg PO UD 03/04/19 02/05/21 History metoprolol succinate 100 mg 100 mg PO QAM 03/04/19 02/05/21 History capsule sprinkle, ext. release 24 hr potassium chloride 20 mEq oral 60 meq PO BID 03/04/19 02/05/21 History packet torsemide 10 mg tablet 20 mg PO QAM 03/04/19 02/05/21 History warfarin 5 mg tablet (Jantoven) 2.5 - 5 mg PO QPM 03/04/19 02/05/21 History calcium carbonate 500 mg-vitamin 1 tab PO QAM 07/09/19 02/05/21 History D3 5 mcg (200 unit) tablet (Calcium 500 + D) cholecalciferol (vitamin D3) 125 125 mcg PO 5XWK 07/09/19 02/05/21 History mcg (5,000 unit) tablet (Vitamin D3) [id number] 1 tab PO QAM 07/09/19 02/05/21 History tablet (Multivitamin 50 Plus) levothyroxine 75 mcg tablet 75 mcg PO DAILY 02/05/21 02/05/21 History Patient History Medical History Arthritis Atrial fibrillation on warfarin; follows with Dr. 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- now on 2-3L O2 daily DVT (deep venous thrombosis) 1997; unk etiology Gout Hypothyroidism no meds Myocardial Infarction 1999 Pacemaker Medtronic implanted 2011, last check 02/2020 Skin cancer SCC Sleep apnea BIPAP + 2.5-3 L O2 HS Surgical History History of cardiac cath [facility] 1999 History of cardiac cath 2002 1 STENT [facility] History of cataract surgery left History of coronary artery bypass graft 2 VESSELS [facility] 1999 History of permanent cardiac pacemaker placement 2012 History of reverse total replacement of right shoulder joint (~07/2019) S/P vascular surgery RIGHT FEM-POP BYPASS GRAFT Family History Son Family history of diabetes mellitus Social History Smoking Status: Former smoker Tobacco Type: Cigarettes Second Hand Exposure: Yes (hx); Hx Alcohol Use: No Hx Substance Use: No Preferred Language: Omani Communication Ability: Effective Visual Impairment: No Limitations [employer] Booking Officer Required: No Beliefs That Will Affect Care: None marital status: Current Living Situation: Spouse Feels Safe at Home: Yes Safety Concerns: Feels Safe At This Time Assistive Devices: BiPap and Hearing Aid - Bilateral Review of Systems Review of Systems: All systems reviewed & are unremarkable except as noted in HPI & below Physical Exam Constitutional: well developed and well nourished; no acute distress and not ill appearing Respiratory: normal respiratory effort, lungs clear to auscultation Cardiovascular: RRR, no murmur, no edema Gastrointestinal (Abdomen): Inspection/Auscultation: abdomen normal to inspection; abdomen not distended, + abnormal bowel sounds and no abdominal surgical scar Percussion/Palpation: + abdomen tender (RUQ on deep palpation) and abdomen soft; no guarding and abdomen not rigid Skin: no rashes, warm and dry Psychiatric: Orientation: alert and oriented x 3 Results & Data ([facility]) Vital Signs (Past 12 Hours) Vital Signs Temp Pulse Resp BP BP Pulse Ox Pulse Ox 02/06/21 14:17 37.3 C 78 16 118/70 96 02/06/21 12:08 37.1 C 60 18 98/59 L 97 02/06/21 11:35 20 66/31 L 95/60 L 99 02/06/21 08:03 36.7 C 61 20 124/71 97 02/06/21 06:28 98 02/06/21 06:01 36.7 C 70 20 125/71 97 02/06/21 06:00 36.7 C 87 24 125/71 96 Laboratory Results 02/06/21 02/06/21 02/06/21 Range/Units 12:54 11:31 08:57 WBC (4.8-10.8) K/uL RBC (4.7-6.1) M/uL Hgb (14.0-18.0) g/dL Hct (42-52) % MCV (80-100) fL MCH (25-34) pg MCHC (32-36) g/dL RDW Std Deviation (36.4-46.3) fL RDW Coeff of Ibrahima (11.5-14.5) % Plt Count (130-400) K/uL MPV (7.4-10.4) fL Immature Gran % (Auto) % Neut % (Auto) % Lymph % (Auto) % Otero % (Auto) % Eos % (Auto) % Baso % (Auto) % Neut # (Auto) (1.4-6.5) K/uL Lymph # (Auto) (1.2-3.4) K/uL Otero # (Auto) (0.11-0.59) K/uL Eos # (Auto) (0-0.5) K/uL Baso # (Auto) (0-0.2) K/uL Immature Gran # (Auto) (0.00-0.02) K/uL PT 21.1 H 21.5 H (9.0-12.0) Seconds INR 2.2 H 2.3 H (0.9-1.1) Sodium (136-145) mmol/L Potassium (3.5-5.1) mmol/L Chloride (98-107) mmol/L Carbon Dioxide (21-32) mmol/L Anion Gap (3-11) BUN (7-18) mg/dl Creatinine (0.6-1.4) mg/dl Est Cr Clr Drug Dosing ml/min Est GFR ( Amer) ml/min Est GFR (Non-Af Amer) ml/min BUN/Creatinine Ratio (10-20) Glucose (70-99) mg/dl POC Glucose 126 H (70-99) mg/dl Estimat Average Glucose mg/dl Hemoglobin A1c (4.5-5.6) % Calcium (8.5-10.1) mg/dl Magnesium (1.8-2.4) mg/dl Total Bilirubin (0.2-1) mg/dl Direct Bilirubin (0-0.2) mg/dl AST (15-37) U/L ALT (12-78) Alkaline Phosphatase (45-117) U/L Troponin I (0-0.045) ng/ml Total Protein (6.4-8.2) gm/dl Albumin (3.4-5.0) gm/dl Globulin (2.5-4.0) gm/dl Albumin/Globulin Ratio (0.9-2) Lipase (73-393) U/L Urine Color Urine Appearance (Clear) Urine pH (4.5-7.5) Ur Specific [place] (1.000-1.030) Urine Protein (Negative) Urine Glucose (UA) (Negative) Urine Ketones (Negative) Urine Blood (Negative) Urine Nitrite (Negative) Urine Bilirubin (Negative) Urine Urobilinogen (Negative) Ur Leukocyte Esterase (Negative) Urine WBC (Auto) (0-5) /hpf Urine RBC (Auto) (0-4) /hpf U Hyaline Cast (Auto) (0-5) /lpf U Epithel Cells (Auto) (0-5) /lpf Urine Bacteria (Auto) (Negative) Urine Yeast SARS-CoV-2 (PCR) (Negative) Influenza Type A (PCR) (Neg) Influenza Type B (PCR) (Neg) RSV (RT-PCR) (Neg) 02/06/21 02/06/21 02/06/21 Range/Units 08:57 06:42 06:09 WBC (4.8-10.8) K/uL RBC (4.7-6.1) M/uL Hgb (14.0-18.0) g/dL Hct (42-52) % MCV (80-100) fL MCH (25-34) pg MCHC (32-36) g/dL RDW Std Deviation (36.4-46.3) fL RDW Coeff of Ibrahmia (11.5-14.5) % Plt Count (130-400) K/uL MPV (7.4-10.4) fL Immature Gran % (Auto) % Neut % (Auto) % Lymph % (Auto) % Otero % (Auto) % Eos % (Auto) % Baso % (Auto) % Neut # (Auto) (1.4-6.5) K/uL Lymph # (Auto) (1.2-3.4) K/uL Otero # (Auto) (0.11-0.59) K/uL Eos # (Auto) (0-0.5) K/uL Baso # (Auto) (0-0.2) K/uL Immature Gran # (Auto) (0.00-0.02) K/uL PT (9.0-12.0) Seconds INR (0.9-1.1) Sodium (136-145) mmol/L Potassium (3.5-5.1) mmol/L Chloride (98-107) mmol/L Carbon Dioxide (21-32) mmol/L Anion Gap (3-11) BUN (7-18) mg/dl Creatinine (0.6-1.4) mg/dl Est Cr Clr Drug Dosing ml/min Est GFR ( Amer) ml/min Est GFR (Non-Af Amer) ml/min BUN/Creatinine Ratio (10-20) Glucose (70-99) mg/dl POC Glucose 158 H (70-99) mg/dl Estimat Average Glucose mg/dl Hemoglobin A1c (4.5-5.6) % Calcium (8.5-10.1) mg/dl Magnesium (1.8-2.4) mg/dl Total Bilirubin 7.3 H (0.2-1) mg/dl Direct Bilirubin 5.9 H (0-0.2) mg/dl AST 276 H (15-37) U/L ALT 197 H (12-78) Alkaline Phosphatase 278 H (45-117) U/L Troponin I < 0.015 (0-0.045) ng/ml Total Protein 6.8 (6.4-8.2) gm/dl Albumin 2.6 L (3.4-5.0) gm/dl Globulin (2.5-4.0) gm/dl Albumin/Globulin Ratio (0.9-2) Lipase 417 H (73-393) U/L Urine Color Urine Appearance (Clear) Urine pH (4.5-7.5) Ur Specific [place] (1.000-1.030) Urine Protein (Negative) Urine Glucose (UA) (Negative) Urine Ketones (Negative) Urine Blood (Negative) Urine Nitrite (Negative) Urine Bilirubin (Negative) Urine Urobilinogen (Negative) Ur Leukocyte Esterase (Negative) Urine WBC (Auto) (0-5) /hpf Urine RBC (Auto) (0-4) /hpf U Hyaline Cast (Auto) (0-5) /lpf U Epithel Cells (Auto) (0-5) /lpf Urine Bacteria (Auto) (Negative) Urine Yeast SARS-CoV-2 (PCR) (Negative) Influenza Type A (PCR) (Neg) Influenza Type B (PCR) (Neg) RSV (RT-PCR) (Neg) 02/06/21 02/06/21 02/06/21 Range/Units 06:09 06:09 06:09 WBC 26.74 H D (4.8-10.8) K/uL RBC 4.44 L (4.7-6.1) M/uL Hgb 14.1 (14.0-18.0) g/dL Hct 44.6 (42-52) % MCV 100.5 H (80-100) fL MCH 31.8 (25-34) pg MCHC 31.6 L (32-36) g/dL RDW Std Deviation 59.1 H (36.4-46.3) fL RDW Coeff of Ibrahima 16.2 H (11.5-14.5) % Plt Count 288 (130-400) K/uL MPV 11.3 H (7.4-10.4) fL Immature Gran % (Auto) 0.3 % Neut % (Auto) 88.6 % Lymph % (Auto) 4.7 % Otero % (Auto) 6.3 % Eos % (Auto) 0.0 % Baso % (Auto) 0.1 % Neut # (Auto) 23.70 H (1.4-6.5) K/uL Lymph # (Auto) 1.25 (1.2-3.4) K/uL Otero # (Auto) 1.69 H (0.11-0.59) K/uL Eos # (Auto) 0.01 (0-0.5) K/uL Baso # (Auto) 0.02 (0-0.2) K/uL Immature Gran # (Auto) 0.07 H (0.00-0.02) K/uL PT (9.0-12.0) Seconds INR (0.9-1.1) Sodium 136 (136-145) mmol/L Potassium 4.1 D (3.5-5.1) mmol/L Chloride 100 (98-107) mmol/L Carbon Dioxide 28 (21-32) mmol/L Anion Gap 8.0 (3-11) BUN 38 H (7-18) mg/dl Creatinine 2.24 H D (0.6-1.4) mg/dl Est Cr Clr Drug Dosing 33.3 ml/min Est GFR ( Amer) 31.8 ml/min Est GFR (Non-Af Amer) 27.5 ml/min BUN/Creatinine Ratio 17.1 (10-20) Glucose 182 H (70-99) mg/dl POC Glucose (70-99) mg/dl Estimat Average Glucose 151 mg/dl Hemoglobin A1c 6.9 H (4.5-5.6) % Calcium 9.5 (8.5-10.1) mg/dl Magnesium 2.3 (1.8-2.4) mg/dl Total Bilirubin (0.2-1) mg/dl Direct Bilirubin (0-0.2) mg/dl AST (15-37) U/L ALT (12-78) Alkaline Phosphatase (45-117) U/L Troponin I < 0.015 (0-0.045) ng/ml Total Protein (6.4-8.2) gm/dl Albumin (3.4-5.0) gm/dl Globulin (2.5-4.0) gm/dl Albumin/Globulin Ratio (0.9-2) Lipase (73-393) U/L Urine Color Urine Appearance (Clear) Urine pH (4.5-7.5) Ur Specific [place] (1.000-1.030) Urine Protein (Negative) Urine Glucose (UA) (Negative) Urine Ketones (Negative) Urine Blood (Negative) Urine Nitrite (Negative) Urine Bilirubin (Negative) Urine Urobilinogen (Negative) Ur Leukocyte Esterase (Negative) Urine WBC (Auto) (0-5) /hpf Urine RBC (Auto) (0-4) /hpf U Hyaline Cast (Auto) (0-5) /lpf U Epithel Cells (Auto) (0-5) /lpf Urine Bacteria (Auto) (Negative) Urine Yeast SARS-CoV-2 (PCR) (Negative) Influenza Type A (PCR) (Neg) Influenza Type B (PCR) (Neg) RSV (RT-PCR) (Neg) 02/06/21 02/06/21 02/05/21 Range/Units 06:09 06:00 23:20 WBC (4.8-10.8) K/uL RBC (4.7-6.1) M/uL Hgb (14.0-18.0) g/dL Hct (42-52) % MCV (80-100) fL MCH (25-34) pg MCHC (32-36) g/dL RDW Std Deviation (36.4-46.3) fL RDW Coeff of Ibrahima (11.5-14.5) % Plt Count (130-400) K/uL MPV (7.4-10.4) fL Immature Gran % (Auto) % Neut % (Auto) % Lymph % (Auto) % Otero % (Auto) % Eos % (Auto) % Baso % (Auto) % Neut # (Auto) (1.4-6.5) K/uL Lymph # (Auto) (1.2-3.4) K/uL Otero # (Auto) (0.11-0.59) K/uL Eos # (Auto) (0-0.5) K/uL Baso # (Auto) (0-0.2) K/uL Immature Gran # (Auto) (0.00-0.02) K/uL PT 20.9 H (9.0-12.0) Seconds INR 2.2 H (0.9-1.1) Sodium (136-145) mmol/L Potassium (3.5-5.1) mmol/L Chloride (98-107) mmol/L Carbon Dioxide (21-32) mmol/L Anion Gap (3-11) BUN (7-18) mg/dl Creatinine (0.6-1.4) mg/dl Est Cr Clr Drug Dosing ml/min Est GFR ( Amer) ml/min Est GFR (Non-Af Amer) ml/min BUN/Creatinine Ratio (10-20) Glucose (70-99) mg/dl POC Glucose (70-99) mg/dl Estimat Average Glucose mg/dl Hemoglobin A1c (4.5-5.6) % Calcium (8.5-10.1) mg/dl Magnesium (1.8-2.4) mg/dl Total Bilirubin (0.2-1) mg/dl Direct Bilirubin (0-0.2) mg/dl AST (15-37) U/L ALT (12-78) Alkaline Phosphatase (45-117) U/L Troponin I (0-0.045) ng/ml Total Protein (6.4-8.2) gm/dl Albumin (3.4-5.0) gm/dl Globulin (2.5-4.0) gm/dl Albumin/Globulin Ratio (0.9-2) Lipase (73-393) U/L Urine Color Dark Yellow Urine Appearance Clear (Clear) Urine pH 5.5 (4.5-7.5) Ur Specific [place] 1.043 H (1.000-1.030) Urine Protein Trace H (Negative) Urine Glucose (UA) Negative (Negative) Urine Ketones Negative (Negative) Urine Blood Negative (Negative) Urine Nitrite Negative (Negative) Urine Bilirubin 1+ H (Negative) Urine Urobilinogen Negative (Negative) Ur Leukocyte Esterase Negative (Negative) Urine WBC (Auto) 1-5 (0-5) /hpf Urine RBC (Auto) 0-4 (0-4) /hpf U Hyaline Cast (Auto) 1-5 (0-5) /lpf U Epithel Cells (Auto) 20-30 H (0-5) /lpf Urine Bacteria (Auto) Negative (Negative) Urine Yeast Not Reportable SARS-CoV-2 (PCR) NEGATIVE (Negative) Influenza Type A (PCR) Negative (Neg) Influenza Type B (PCR) Negative (Neg) RSV (RT-PCR) Negative (Neg) 02/05/21 02/05/21 02/05/21 Range/Units 19:30 19:30 19:30 WBC 15.56 H (4.8-10.8) K/uL RBC 4.96 (4.7-6.1) M/uL Hgb 15.8 (14.0-18.0) g/dL Hct 48.9 (42-52) % MCV 98.6 (80-100) fL MCH 31.9 (25-34) pg MCHC 32.3 (32-36) g/dL RDW Std Deviation 56.2 H (36.4-46.3) fL RDW Coeff of Ibrahima 15.7 H (11.5-14.5) % Plt Count 327 (130-400) K/uL MPV 10.9 H (7.4-10.4) fL Immature Gran % (Auto) 0.3 % Neut % (Auto) 92.1 % Lymph % (Auto) 2.0 % Otero % (Auto) 5.3 % Eos % (Auto) 0.1 % Baso % (Auto) 0.2 % Neut # (Auto) 14.33 H (1.4-6.5) K/uL Lymph # (Auto) 0.31 L (1.2-3.4) K/uL O[place]o # (Auto) 0.83 H (0.11-0.59) K/uL Eos # (Auto) 0.02 (0-0.5) K/uL Baso # (Auto) 0.03 (0-0.2) K/uL Immature Gran # (Auto) 0.04 H (0.00-0.02) K/uL PT 19.3 H (9.0-12.0) Seconds INR 2.0 H (0.9-1.1) Sodium 140 (136-145) mmol/L Potassium 2.9 L (3.5-5.1) mmol/L Chloride 101 (98-107) mmol/L Carbon Dioxide 31 (21-32) mmol/L Anion Gap 8.0 (3-11) BUN 35 H (7-18) mg/dl Creatinine 1.74 H (0.6-1.4) mg/dl Est Cr Clr Drug Dosing 42.8 ml/min Est GFR ( Amer) 43.2 ml/min Est GFR (Non-Af Amer) 37.3 ml/min BUN/Creatinine Ratio 19.9 (10-20) Glucose 137 H (70-99) mg/dl POC Glucose (70-99) mg/dl Estimat Average Glucose mg/dl Hemoglobin A1c (4.5-5.6) % Calcium 10.2 H (8.5-10.1) mg/dl Magnesium (1.8-2.4) mg/dl Total Bilirubin 4.9 H (0.2-1) mg/dl Direct Bilirubin (0-0.2) mg/dl AST 212 H (15-37) U/L ALT 132 H (12-78) Alkaline Phosphatase 317 H (45-117) U/L Troponin I < 0.015 (0-0.045) ng/ml Total Protein 8.1 (6.4-8.2) gm/dl Albumin 3.1 L (3.4-5.0) gm/dl Globulin 5.0 H (2.5-4.0) gm/dl Albumin/Globulin Ratio 0.6 L (0.9-2) Lipase 745 H (73-393) U/L Urine Color Urine Appearance (Clear) Urine pH (4.5-7.5) Ur Specific [place] (1.000-1.030) Urine Protein (Negative) Urine Glucose (UA) (Negative) Urine Ketones (Negative) Urine Blood (Negative) Urine Nitrite (Negative) Urine Bilirubin (Negative) Urine Urobilinogen (Negative) Ur Leukocyte Esterase (Negative) Urine WBC (Auto) (0-5) /hpf Urine RBC (Auto) (0-4) /hpf U Hyaline Cast (Auto) (0-5) /lpf U Epithel Cells (Auto) (0-5) /lpf Urine Bacteria (Auto) (Negative) Urine Yeast SARS-CoV-2 (PCR) (Negative) Influenza Type A (PCR) (Neg) Influenza Type B (PCR) (Neg) RSV (RT-PCR) (Neg) Diagnostic Findings US gallbladder CLINICAL HISTORY: Elevated bilirubin, abdominal pain COMPARISON STUDY: CT of the abdomen and pelvis March 15, 2013. FINDINGS: Exam is compromised by suboptimal penetration. No hepatic lesions are identified. There is no biliary ductal dilatation. The common bile duct measures 5 mm in caliber. The gallbladder is distended. Stones and sludge within the gallbladder are noted. There is no gallbladder wall thickening. Sonographic Larry sign could not be assessed for in this patient. There is no pericholecystic fluid. No right hydronephrosis is present. There is a possible 2.1 cm solid lesion within the midpole the right kidney. IMPRESSION: 1. Cholelithiasis and gallbladder distention. The findings are equivocal for acute cholecystitis. A hepatobiliary scan could be obtained as indicated. 2. No biliary ductal dilatation. 3. Possible 2.1 cm solid right renal lesion. Nonemergent renal protocol CT is recommended for further evaluation CT angio chest PE protocol CLINICAL HISTORY: Shortness of breath and chest pain. Evaluate for pulmonary embolus COMPARISON STUDY: Portable chest from 02/05/2021 CT DOSE: 844.96 mGy.cm TECHNIQUE: CT Angio of the chest was performed.followed by image post processing with coronal, and sagittal MIP reformats. Contrast Volume: Optiray 320, 120 ml FINDINGS: Vasculature: There is homogeneous perfusion of the pulmonary vasculature bilaterally. No intraluminal filling defects or evidence for pulmonary embolus is seen. Airway: The airway is clear. No endobronchial lesion is identified. Lungs: There is again asymmetric elevation right hemidiaphragm with crowding the bronchovascular markings at the right lung base and right basilar atelectasis posteriorly. The lungs are clear of acute alveolar opacities, air bronchograms or pulmonary nodules. Pleura: There is no evidence for pleural effusion. There is no evidence for pneumothorax. Mediastinum: There is no evidence for pathologic adenopathy. The heart size is within normal limits. There is prominent atherosclerotic calcification present of the coronary arteries. Permanent cardiac pacer is in place. The thoracic aorta is within normal limits. Mild atherosclerotic calcification is present. There is no evidence for pericardial effusion. Upper abdomen:The adrenal glands are normal bilaterally. The gallbladder is distended. Osseous structures: There is no acute osseous pathology. Impression: 1. No CTA evidence for pulmonary embolus. 2. As noted radiographically, there is asymmetric elevation of the right hemidiaphragm with crowding of the bronchovascular markings at the right lung base. 3. There is also right basilar atelectasis posteriorly with otherwise no acute chest disease. 4. Coronary artery calcification XR chest 1V portable CLINICAL HISTORY: Chest Pain. COMPARISON STUDY: 07/14/2019 TECHNIQUE: 1 view of the chest FINDINGS: Single frontal view of the chest demonstrates the heart size to be within normal limits status post previous cardiothoracic surgery and pacer placement. There is again marked asymmetric elevation of the right hemidiaphragm with crowding of bronchovascular markings at the right lung base. The lungs are otherwise clear of alveolar opacities. There is no evidence for pleural effusion. There is no evidence for vascular congestion. There is no acute osseous pathology. IMPRESSION: No acute cardiopulmonary disease. Marked asymmetric elevation the right hemidiaphragm with crowding of the bronchovascular markings at the right lung base.. (1) Chest pain Chest pain type: unspecified Qualified Code(s): R07.9 - Chest pain, unspecified
[2021-02-06] MEDS ORDERED: SODIUM CHLORIDE 0.9% 250 ML IV PRN (16:47)
--- NOTE | 2021-02-06 16:50 | Operative Report ---
Post Operative Report Pre & Post Diagnosis Operation Date: 02/06/21 09:40 Pre-Op Diagnosis: cholangitis I identified the patient and participated in the time-out.: Yes Procedure Operation Date: 02/06/21 09:40 Actual Procedures p Esophagogastroduodenoscopy - Karan James MD s Endoscopic Ultrasonography Upper - Karan James MD p Endoscopic Retrograde Cholangiopancreato - Karan James MD Surgeon Karan James MD [employer] Overhaul None Estimated Blood Loss 0 Findings See Below (CBD stones and pus removed, stent placed.) Specimens None Description of Procedure EUS/ERCP I attest to the content of the Intraoperative Record and any orders documented therein. Any exceptions are noted below.
--- NOTE | 2021-02-06 17:02 | GI REPORT ---
Patient Name: Arnulfo Kirkpatrick Procedure Date: 02/06/2021 2:58 PM Date of : 1945 Admit Type: Inpatient Age: 75 Gender: Male Attending MD: aKran James MD Procedure: Upper GI endoscopy Providers: Karan James MD Referring MD: Brandon Espino Md Indications: Abdominal pain Medicines: General Anesthesia Complications: No immediate complications. Estimated Blood Loss: Estimated blood loss: none. Procedure: Pre-Anesthesia Assessment: - Prior to the procedure, a History and Physical was performed, and patient medications, allergies and sensitivities were reviewed. The patient's tolerance of previous anesthesia was reviewed. - The risks and benefits of the procedure and the sedation options and risks were discussed with the patient. All questions were answered and informed consent was obtained. - Patient identification and proposed procedure were verified prior to the procedure by the physician and the nurse. The procedure was verified in the procedure room. - Pre-procedure physical examination revealed no contraindications to sedation. After obtaining informed consent, the endoscope was passed under direct vision. Throughout the procedure, the patient's blood pressure, pulse, and oxygen saturations were monitored continuously. The Endoscope was introduced through the mouth, and advanced to the second part of duodenum. The upper GI endoscopy was accomplished without difficulty. The patient tolerated the procedure well. Findings: LA Grade A (one or more mucosal breaks less than 5 mm, not extending between tops of 2 mucosal folds) esophagitis with bleeding was found in the lower third of the esophagus. Mild inflammation with hemorrhage characterized by adherent blood and erythema was found in the gastric body. The duodenal bulb and second portion of the duodenum were normal. A single 10 mm sessile polyp was found in the duodenal bulb. Polypectomy was not attempted due to the patient taking anticoagulation medication. Impression: - LA Grade A reflux esophagitis. - Gastritis. - Normal duodenal bulb and second portion of the duodenum. - A single duodenal polyp. Resection not attempted due to current use of anticoagulation. - No specimens collected. Recommendation: - Perform an upper endoscopic ultrasound (UEUS) today. - Follow an antireflux regimen. - Use a proton pump inhibitor IV BID for 2 days then switch to PO. - Repeat upper endoscopy in 2 months for polypectomy. Karan James MD 02/06/2021 5:02:09 PM This report has been signed electronically. Note Initiated On: 02/06/2021 2:58 PM Number of Addenda: 0 I attest to the content of the Intraoperative Record and orders documented therein, exceptions below {[id number]}
--- NOTE | 2021-02-06 17:15 | Fluoroscopy Report ---
INTRAOPERATIVE RADIOGRAPHS CLINICAL HISTORY: Duct exploration. Fluoroscopy time: 1 minute. FINDINGS: 12 spot fluoroscopic views of the right upper quadrant from an ERCP procedure are presented . A wire is placed into the common bile duct and balloon sweeps of the duct are performed. The final image shows common bile duct stents in place. IMPRESSION: Intraoperative ERCP images as above. See operative report for detailed findings. Electronically signed by: Adonay Nguyễn M.D. 02/06/2021 5:14 PM
--- NOTE | 2021-02-06 17:18 | GI REPORT ---
Patient Name: Arnulfo Kirkpatrick Procedure Date: 02/06/2021 2:59 PM Date of : 1945 Admit Type: Inpatient Age: 75 Gender: Male Attending MD: Karan James MD Procedure: Upper EUS Providers: Karan James MD Referring MD: Brandon Espino Md Indications: Abnormal ultrasound of the abdomen, Suspected choledocholithiasis Medicines: General Anesthesia Complications: No immediate complications. Estimated Blood Loss: Estimated blood loss: none. Procedure: Pre-Anesthesia Assessment: - Prior to the procedure, a History and Physical was performed, and patient medications, allergies and sensitivities were reviewed. The patient's tolerance of previous anesthesia was reviewed. - The risks and benefits of the procedure and the sedation options and risks were discussed with the patient. All questions were answered and informed consent was obtained. - Patient identification and proposed procedure were verified prior to the procedure by the physician and the nurse. The procedure was verified in the procedure room. - Pre-procedure physical examination revealed no contraindications to sedation. After obtaining informed consent, the endoscope was passed under direct vision. Throughout the procedure, the patient's blood pressure, pulse, and oxygen saturations were monitored continuously. The scope was introduced through the mouth, and advanced to the second part of duodenum. The upper EUS was accomplished without difficulty. The patient tolerated the procedure well. Findings: ENDOSONOGRAPHIC FINDING: : There was no sign of significant endosonographic abnormality in the ampulla. No masses were identified. There was dilation in the common bile duct which measured up to 8 mm. Three stones were visualized endosonographically in the common bile duct. The stones measured up to 10 mm in greatest dimension. The stones were triangular. They were hyperechoic and characterized by shadowing. Many stones were visualized endosonographically in the gallbladder. They were hyperechoic and characterized by shadowing. Anechoic lesions suggestive of three cysts were identified in the pancreatic body. The largest lesion measured 5 mm in maximal cross-sectional diameter. There was no associated mass. PD measured 2 mm in maximum diatemer. There was no sign of significant endosonographic abnormality in the visualized portion of the left adrenal gland. There was no sign of significant endosonographic abnormality involving the celiac trunk. Impression: - There was no sign of significant pathology in the ampulla. - There was dilation in the common bile duct which measured up to 8 mm. - Three stones were visualized endosonographically in the common bile duct. - Many stones were visualized endosonographically in the gallbladder. 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 - Endosonographic images of the left adrenal gland were unremarkable. - The celiac trunk was endosonographically normal. Recommendation: - Perform an ERCP today. - Perform magnetic resonance imaging (MRI) with gadolinium in 1 year for surveillance on the pancreatic cysts. Karan James MD 02/06/2021 5:17:44 PM This report has been signed electronically. Note Initiated On: 02/06/2021 2:59 PM Number of Addenda: 0 I attest to the content of the Intraoperative Record and orders documented therein, exceptions below {[id number]}
--- NOTE | 2021-02-06 17:30 | GI REPORT ---
Patient Name: Arnulfo Kirkpatrick Procedure Date: 02/06/2021 3:01 PM Date of : 1945 Admit Type: Inpatient Age: 75 Gender: Male Attending MD: Karan James MD Procedure: ERCP Providers: Karan James MD Referring MD: Brandon Espino Md Indications: For therapy of bile duct stone(s) Medicines: General Anesthesia Complications: No immediate complications. Estimated Blood Loss: Estimated blood loss: none. Procedure: Pre-Anesthesia Assessment: - Prior to the procedure, a History and Physical was performed, and patient medications, allergies and sensitivities were reviewed. The patient's tolerance of previous anesthesia was reviewed. - The risks and benefits of the procedure and the sedation options and risks were discussed with the patient. All questions were answered and informed consent was obtained. - Patient identification and proposed procedure were verified prior to the procedure by the physician and the nurse. The procedure was verified in the procedure room. - Pre-procedure physical examination revealed no contraindications to sedation. After obtaining informed consent, the scope was passed under direct vision. Throughout the procedure, the patient's blood pressure, pulse, and oxygen saturations were monitored continuously. The Duodenoscope was introduced through the mouth, and advanced to the duodenum and used to inject contrast into the bile duct. The ERCP was accomplished without difficulty. The patient tolerated the procedure well. Findings: The log manager film was normal. The esophagus was successfully intubated under direct vision. The scope was advanced to a normal major papilla in the descending duodenum without detailed examination of the pharynx, larynx and associated structures, and upper GI tract. The upper GI tract was grossly normal. The major papilla was on the rim of a diverticulum. A 0.035 inch straight standard wire was passed into the biliary tree. The Fusion OMNI sphincterotome was passed over the guidewire and the bile duct was then deeply cannulated. Contrast was injected. I personally interpreted the bile duct images. Ductal flow of contrast was adequate. Image quality was adequate. Contrast extended to the main bile duct. Opacification of the entire biliary tree except for the gallbladder was successful. The maximum diameter of the ducts was 10 mm. A 2 mm biliary sphincterotomy was made with a monofilament traction (standard) sphincterotome using ERBE electrocautery. There was no post-sphincterotomy bleeding. Bile duct orifice was successfully dilated with an 8 mm balloon dilator. The biliary tree was swept with a 12 mm balloon starting at the bifurcation. Three stones were removed. No stones remained. Pus was swept from the duct. One 10 mm by 6 cm covered metal biliary stent was placed into the common bile duct in view of ongoing coagulopathy, minimal oozing after stone extraction and in anticipation for continuos use of antiplatelets. Bile flowed through the stent. The stent was in good position. One 7 Fr by 10 cm plastic biliary stent with a single external pigtail and a single internal pigtail was placed into the common bile duct. Bile flowed through the stent. The stent was in good position. PD was not cannulated. Impression: - Choledocholithiasis was found. Complete removal was accomplished by minimal biliary sphincterotomy with papillary balloon dilation (m-EBS+EPBD) and balloon extraction. - The biliary tree was swept and pus was found consistent with acute cholangitis. - No opacification of the gallbladder suggestive of ongoing acute cholecystitis. - One covered metal biliary stent and one plastic stent were placed into the common bile duct. Recommendation: - [facility] patient to [facility] for [facility] care. - Repeat ERCP in 6 weeks to remove stent. - Follow up with surgery for cholecystectomy. - Correct coagulopathy, give 2 units of FFP now and check INR tomorrow, if remains > 1.5 then give another dose of Vitamin K. - Hold Plavix for 3 days and can use ASA 81 mg in the meantime. Karan James MD 02/06/2021 5:29:51 PM This report has been signed electronically. Note Initiated On: 02/06/2021 3:01 PM Number of Addenda: 0 I attest to the content of the Intraoperative Record and orders documented therein, exceptions below {[id number]}
[2021-02-06] MEDS ORDERED: GLUCAGON FOR INJ 1 MG VIAL ONE (17:55)
--- NOTE | 2021-02-06 18:12 | Anesthesiology Progress Note ---
Date of Service February 06, 2021 Anesthesia Post Procedure Vital Signs Vital Signs: Temp Pulse Pulse Resp BP BP BP 02/06/21 17:30 36.8 C 62 16 139/61 02/06/21 17:20 60 16 125/65 02/06/21 17:19 36.8 C 61 16 136/63 02/06/21 17:10 60 16 123/63 02/06/21 17:00 36.8 C 79 16 121/84 02/06/21 14:17 37.3 C 78 16 118/70 02/06/21 12:08 37.1 C 60 18 98/59 L 02/06/21 11:35 20 66/31 L 95/60 L 02/06/21 08:03 36.7 C 61 20 124/71 02/06/21 06:28 02/06/21 06:01 36.7 C 70 20 125/71 02/06/21 06:00 36.7 C 87 24 125/71 02/06/21 04:00 60 22 100/64 02/06/21 02:00 60 16 96/64 L 02/06/21 00:00 60 16 94/53 L 02/05/21 19:22 36.4 C L 84 84 18 112/85 112/85 Pulse Ox Pulse Ox 02/06/21 17:30 95 02/06/21 17:20 95 02/06/21 17:19 96 02/06/21 17:10 96 02/06/21 17:00 96 02/06/21 14:17 96 02/06/21 12:08 97 02/06/21 11:35 99 02/06/21 08:03 97 02/06/21 06:28 98 02/06/21 06:01 97 02/06/21 06:00 96 02/06/21 04:00 97 02/06/21 02:00 95 02/06/21 00:00 98 02/05/21 19:22 98 Pain Intensity Left Chest: Pain Intensity: 3 Transfer of Care Handoff Completed per policy Notes Mental Status: alert / awake / arousable and participated in evaluation Patient Amnestic to Procedure: Yes Nausea / Vomiting: adequately controlled Pain: adequately controlled Airway Patency, RR, SpO2: stable & adequate BP & HR: stable & adequate Hydration State: stable & adequate Anesthetic Complications: no major complications apparent and Pt Satisfied with anesthetic care
[2021-02-06] MEDS: ATORVASTATIN 40 MG TAB PO SCH (21:17)
[2021-02-07] MEDS: SODIUM CHLORIDE 0.9% 1000ML 1,000 ML IV SCH ×3 (00:12→14:43)
[2021-02-07] MEDS: INSULIN ASPART PER UNIT SC SCH ×5 (00:39→21:26)
[2021-02-07] MEDS: PIPERACILLIN/TAZOBACTAM 4.5 GM in DEXTROSE 5% 100 ML IV SCH ×3 (02:56→17:44)
--- NOTE | 2021-02-07 06:08 | Hospitalist Progress Note ---
Date of Service February 06, 2021 Assessment & Plan Admission and Anticipated Discharge Date Admission Date: February 06, 2021 Subjective Pt seen after ERCP. He is laying in bed in NAD, able to answer questions appropriately, however he is ill-appearing and somewhat uncomfortable (reports chronic back pain). ERCP c/w choledocholithiasis/ cholangitis. Continue Zosyn. Coming from ERCP with FFP. Hold plavix for now and start aspirin in the meantime. Cont. to closely monitor. Piling Cutter updated about the pt's status. Sari Espino MD Results & Data Results & Data ([facility]) Vital Signs (Past 12 Hours) Vital Signs Temp Pulse Pulse Resp BP BP Pulse Ox 02/07/21 03:45 36.9 C 67 16 121/82 94 02/06/21 22:02 37.0 C 72 20 104/63 91 02/06/21 21:22 37.0 C 60 22 109/72 92 02/06/21 20:25 64 14 92 02/06/21 20:22 37.0 C 66 16 115/75 93 02/06/21 19:52 36.9 C 60 16 113/65 92 02/06/21 19:37 36.7 C 67 18 106/67 93 02/06/21 19:19 36.8 C 61 18 122/72 02/06/21 18:13 36.5 C 62 20 135/80 96
[2021-02-07] MEDS: LEVOTHYROXINE SODIUM 75 MCG TABLET PO SCH (07:20)
[2021-02-07 07:42] LABS: Hematocrit (blood only) 40.8 % (42-52); Hemoglobin 12.9 g/dL (14.0-18.0); Mean Corpuscular Hemoglobin 31.6 pg (25-34); Mean Corpuscular Hgb Conc 31.6 g/dL (32-36); Mean Platelet Volume 11.3 fL (7.4-10.4); Platelet Count 233 K/uL (130-400); RDW Coefficient of Variation 16.6 % (11.5-14.5); RDW Standard Deviation 60.1 fL (36.4-46.3); Red Blood Count 4.08 M/uL (4.7-6.1)
[2021-02-07] MEDS: ASPIRIN 81 MG ECTAB PO SCH (07:46)
[2021-02-07] MEDS: CALCIUM 600MG + VIT D 400 IU TAB PO SCH (07:46)
[2021-02-07] MEDS: CEROVITE ADV FORMULA TAB PO SCH (07:47)
[2021-02-07] MEDS: METOPROLOL SUCC 50MG EXT REL TAB PO SCH (07:47)
[2021-02-07] MEDS: CHOLECALCIFEROL 5,000 UNITS 125 MCG TAB PO SCH (07:47)
[2021-02-07] MEDS: ISOSORBIDE DINITRATE 10 MG TAB PO SCH (07:47)
[2021-02-07 07:54] LABS: INR 1.5 (0.9-1.1); Prothrombin Time 14.4 Seconds (9.0-12.0)
[2021-02-07 08:23] LABS: Albumin Globulin Ratio 0.6 (0.9-2); Albumin Level 2.4 gm/dl (3.4-5.0); Bilirubin Direct 7.4 mg/dl (0-0.2); Calcium 8.8 mg/dl (8.5-10.1); Creatinine Clr Calc Pharmacy 34.7 ml/min; Est GFR (African American) 33.4 ml/min; Est GFR (Non-African American) 28.8 ml/min; Globulin 4.3 gm/dl (2.5-4.0); Magnesium 2.6 mg/dl (1.8-2.4); Phosphorus 2.8 mg/dl (2.5-4.9); Potassium 4.1 mmol/L (3.5-5.1); Total Protein 6.7 gm/dl (6.4-8.2)
[2021-02-07 09:08] LABS: Bilirubin,Total 9.2 mg/dl (0.2-1)
--- NOTE | 2021-02-07 09:40 | Gastroenterology Progress Note ---
Date of Service February 07, 2021 Assessment & Plan (1) Cholangitis: Plan: See below (2) Cholelithiases: Plan: See below Plan: Clinically improved after ERCP (lower transaminases and WBC and pt appears clinically stable). Continued elevated bili likely related to continued acute cholecystitis. Continue antibiotics x 7 days total. No Plavix until 02/10/21 (hold x 3 days). May use ASA in the interim. Continue to hold coumadin pending cholecystectomy and restart per surgery recommendations. Plan for OP EUS in 6 wks for removal of CBD stent. Our office will contact the pt to arrange. Keep NPO today pending surgery instructions but if no surgery today, OK from a GI perspective to have clear liquids today. Diet going forward per surgery. GI will watch peripherally. Please notify us of new/worsening GI issues. Admission and Anticipated Discharge Date Admission Date: February 06, 2021 Supervising Physician Co-Signing Physician Notes Attg add: I interviweed and examined pt, reviewed chart and labs. Pt doing well s/p ERCP, with stable VS, no fever, falling WBC and improved AP, although bili rising. Cont follow LFTs, and please notify us if bili cont to rise. Cscopy. Subjective 75, male, CAD/CHF/A-fib maintained on Coumadin (last dose 02/04), Plavix (last dose 02/05). INR was 2.4, received 10mg Vit K and 2 units PPF yesterday. ERCP yesterday with sphincterotomy and sweeping of the bile duct for stones. This morning stable, Awake, alert, denies abd pain. Afebrile, WBCs improved 26- >18. LFTs: transaminases improved (AST 276->135), ALT 187->131), Alk Phos 278->234), Bili increased (T Bili 7->9, D bili 5->7). Review of Systems Review of Systems: ROS: Since arrival: Gen: Denies weakness, fevers, weight loss Eyes: + icterus; No eye redness, or pain, no recent vision changes Resp: No SOB, no cough Cardio: No palpitations/irregular beats, no chest pain GI: No abdominal pain, no nausea/vomiting : + continues with dark urine; Denies pain on urination Skin: + jaundice; No itching or new rashes A total of 12 systems were reviewed, all others (-). Physical Exam Constitutional: well developed and cooperative Respiratory: normal respiratory effort and able to speak in complete sentences; no respiratory distress, no labored breathing, does not use accessory muscles and no cough Gastrointestinal (Abdomen): normal bowel sounds, soft, nontender, no hepatosplenomegaly Skin: no rashes, warm and dry normal turgor Neurologic: PERRL, EOMI, accommodation nl, no face palsy, no dysarthria awake; not confused Psychiatric: A+Ox3, euthymic affect Orientation: alert, oriented x 3 and cooperative Results & Data ([facility]) Vital Signs (Past 12 Hours) Vital Signs Temp Pulse Pulse Resp BP BP BP 02/07/21 08:04 36.3 C L 65 20 123/77 02/07/21 07:25 67 02/07/21 06:22 62 02/07/21 03:45 36.9 C 67 16 121/82 02/06/21 22:02 37.0 C 72 20 104/63 Pulse Ox 02/07/21 08:04 95 02/07/21 07:25 02/07/21 06:22 02/07/21 03:45 94 02/06/21 22:02 91 Laboratory Results WBC 18, Hb 12.9, Hct 40, Plts 233, INR 1.5, Na 139, Cl105, CO2 28, BUN 47, Cr 2.14. See HPI for LFTs Diagnostic Findings See ERCP 02/06: sphincterotomy, balloon extraction of choledocholithiasis. No dye in the gallbladder - suggestive of ongoing acute cholecystitis.
--- NOTE | 2021-02-07 10:42 | Cardiology Progress Note ---
Date of Service February 07, 2021 Assessment & Plan (1) Transaminitis: (2) Chest pain: (3) CAD (coronary artery disease): (4) BREANNA (acute kidney injury): (5) Atrial fibrillation with controlled ventricular rate: (6) PVD (peripheral vascular disease): (7) Cholangitis: Plan: Patient admitted with CP/abdominal pain, found to have significantly elevated lipase and LFT's. ERCP with stone removal and biliary stent placed. Plans for cholecystectomy during this admission. Coumadin on hold. His chest pain was atypical for cardiac etiology. Prelim echo report reveals stable findings with normal LVEF 50-54% Cardiac enzymes unremarkable. Non cardiac chest pain. Acceptable to hold Coumadin for upcoming procedures. Given chronic afib, high CHADSVASC score, consider heparin bridge when INR < 2. He is on chronic plavix due to complex CAD and PVD. Plavix now on hold and replaced with ASA 81 mg daily Hold torsemide and metolazone given BREANNA, rising creatinine. Baseline around 1.4. Avoid nephrotoxin agents if possible. Monitor fluid status closely Case to be discussed with Dr. Matthews Will follow. Admission and Anticipated Discharge Date Admission Date: February 06, 2021 Supervising Physician Co-Signing Physician Notes Patient seen and examined with Ceci Suero PA-C. Agree with findings and as sessment as above. Feeling much better today. Plavix has been changed to aspirin and Coumadin obviously held. For procedure later today. Subjective Patient resting in bed comfortably. Notes feeling tired but no significant abdominal pain today. No recurrent chest pain. Denies SOB. No orthopnea, PND or edema. Review of Systems Review of Systems: All systems reviewed & are unremarkable except as noted in HPI & below Physical Exam Constitutional: WD/WN, vitals as above well developed; no acute distress Eyes: sclerae not anicteric Neck: trachea midline, no thyromegaly Respiratory: normal respiratory effort, lungs clear to auscultation Cardiovascular: Rate/Rhythm: regular rate and regular rhythm Heart Sounds: normal S1 and normal S2; no murmur Vessels: no JVD Extremities: no edema Gastrointestinal (Abdomen): Inspection/Auscultation: abdomen normal to inspection; abdomen not distended Percussion/Palpation: abdomen nontender Skin: + jaundice Neurologic: PERRL, EOMI, accommodation nl, no face palsy, no dysarthria Psychiatric: A+Ox3, euthymic affect Results & Data ([facility]) Vital Signs (Past 12 Hours) Vital Signs Temp Pulse Pulse Resp BP BP Pulse Ox 02/07/21 08:04 36.3 C L 65 20 123/77 95 02/07/21 07:25 67 02/07/21 06:22 62 02/07/21 03:45 36.9 C 67 16 121/82 94 Laboratory Results 02/07/21 02/07/21 02/07/21 Range/Units 07:19 07:13 07:13 WBC 18.60 H (4.8-10.8) K/uL RBC 4.08 L (4.7-6.1) M/uL Hgb 12.9 L (14.0-18.0) g/dL Hct 40.8 L (42-52) % MCV 100.0 (80-100) fL MCH 31.6 (25-34) pg MCHC 31.6 L (32-36) g/dL RDW Std Deviation 60.1 H (36.4-46.3) fL RDW Coeff of Ibrahima 16.6 H (11.5-14.5) % Plt Count 233 (130-400) K/uL MPV 11.3 H (7.4-10.4) fL PT 14.4 H (9.0-12.0) Seconds INR 1.5 H (0.9-1.1) Sodium (136-145) mmol/L Potassium (3.5-5.1) mmol/L Chloride (98-107) mmol/L Carbon Dioxide (21-32) mmol/L Anion Gap (3-11) BUN (7-18) mg/dl Creatinine (0.6-1.4) mg/dl Est Cr Clr Drug Dosing ml/min Est GFR ( Amer) ml/min Est GFR (Non-Af Amer) ml/min BUN/Creatinine Ratio (10-20) Glucose (70-99) mg/dl POC Glucose 149 H (70-99) mg/dl Estimat Average Glucose mg/dl Hemoglobin A1c (4.5-5.6) % Calcium (8.5-10.1) mg/dl Phosphorus (2.5-4.9) mg/dl Magnesium (1.8-2.4) mg/dl Total Bilirubin (0.2-1) mg/dl Direct Bilirubin (0-0.2) mg/dl AST (15-37) U/L ALT (12-78) Alkaline Phosphatase (45-117) U/L Total Protein (6.4-8.2) gm/dl Albumin (3.4-5.0) gm/dl Globulin (2.5-4.0) gm/dl Albumin/Globulin Ratio (0.9-2) 02/07/21 02/07/21 02/06/21 Range/Units 07:13 00:17 18:32 WBC (4.8-10.8) K/uL RBC (4.7-6.1) M/uL Hgb (14.0-18.0) g/dL Hct (42-52) % MCV (80-100) fL MCH (25-34) pg MCHC (32-36) g/dL RDW Std Deviation (36.4-46.3) fL RDW Coeff of Ibrahima (11.5-14.5) % Plt Count (130-400) K/uL MPV (7.4-10.4) fL PT (9.0-12.0) Seconds INR (0.9-1.1) Sodium 139 (136-145) mmol/L Potassium 4.1 (3.5-5.1) mmol/L Chloride 105 (98-107) mmol/L Carbon Dioxide 28 (21-32) mmol/L Anion Gap 6.0 (3-11) BUN 47 H (7-18) mg/dl Creatinine 2.15 H (0.6-1.4) mg/dl Est Cr Clr Drug Dosing 34.7 ml/min Est GFR ( Amer) 33.4 ml/min Est GFR (Non-Af Amer) 28.8 ml/min BUN/Creatinine Ratio 22.0 H (10-20) Glucose 156 H (70-99) mg/dl POC Glucose 165 H 162 H (70-99) mg/dl Estimat Average Glucose mg/dl Hemoglobin A1c (4.5-5.6) % Calcium 8.8 (8.5-10.1) mg/dl Phosphorus 2.8 (2.5-4.9) mg/dl Magnesium 2.6 H (1.8-2.4) mg/dl Total Bilirubin 9.2 H (0.2-1) mg/dl Direct Bilirubin 7.4 H (0-0.2) mg/dl AST 135 H (15-37) U/L ALT 131 H (12-78) Alkaline Phosphatase 234 H (45-117) U/L Total Protein 6.7 (6.4-8.2) gm/dl Albumin 2.4 L (3.4-5.0) gm/dl Globulin 4.3 H (2.5-4.0) gm/dl Albumin/Globulin Ratio 0.6 L (0.9-2) 02/06/21 02/06/21 02/06/21 Range/Units 12:54 11:31 06:09 WBC (4.8-10.8) K/uL RBC (4.7-6.1) M/uL Hgb (14.0-18.0) g/dL Hct (42-52) % MCV (80-100) fL MCH (25-34) pg MCHC (32-36) g/dL RDW Std Deviation (36.4-46.3) fL RDW Coeff of Ibrahima (11.5-14.5) % Plt Count (130-400) K/uL MPV (7.4-10.4) fL PT 21.1 H (9.0-12.0) Seconds INR 2.2 H (0.9-1.1) Sodium (136-145) mmol/L Potassium (3.5-5.1) mmol/L Chloride (98-107) mmol/L Carbon Dioxide (21-32) mmol/L Anion Gap (3-11) BUN (7-18) mg/dl Creatinine (0.6-1.4) mg/dl Est Cr Clr Drug Dosing ml/min Est GFR ( Amer) ml/min Est GFR (Non-Af Amer) ml/min BUN/Creatinine Ratio (10-20) Glucose (70-99) mg/dl POC Glucose 126 H (70-99) mg/dl Estimat Average Glucose 151 mg/dl Hemoglobin A1c 6.9 H (4.5-5.6) % Calcium (8.5-10.1) mg/dl Phosphorus (2.5-4.9) mg/dl Magnesium (1.8-2.4) mg/dl Total Bilirubin (0.2-1) mg/dl Direct Bilirubin (0-0.2) mg/dl AST (15-37) U/L ALT (12-78) Alkaline Phosphatase (45-117) U/L Total Protein (6.4-8.2) gm/dl Albumin (3.4-5.0) gm/dl Globulin (2.5-4.0) gm/dl Albumin/Globulin Ratio (0.9-2) Diagnostic Findings Telemetry reviewed - underlying atrial fib, chronic RV pacing. ERCP opp notes reviewed Medications Administered Current Inpatient Medications Acetaminophen (Acetaminophen 325 Mg Tab) 650 mg PO Q4H PRN PRN Reason: Pain or Fever Stop: 03/08/21 05:17 Aspirin ([facility]spirin 81 Mg Ectab) [facility] [place] Stop: 03/09/21 08:59 Last Admin: 02/07/21 07:46 Dose: 81 mg Documented by: Atorvastatin Calcium (Atorvastatin 40 Mg Tab) 80 mg PO QPM [facility] Stop: 03/08/21 20:59 Last Admin: 02/06/21 21:17 Dose: 80 mg Documented by: Clopidogrel Bisulfate (Clopidogrel Bisulfate 75 Mg Tab) 75 mg PO QAM [facility] Stop: 03/08/21 08:59 Last Admin: 02/06/21 09:24 Dose: Not Given Documented by: Hydromorphone HCl (Hydromorphone Inj 0.5 Mg/0.5 Ml Syr) 0.5 mg IV Q4H PRN PRN Reason: Pain Stop: 02/20/21 03:16 Last Admin: 02/06/21 18:53 Dose: 0.5 mg Documented by: Sodium Chloride (Nss 1000ml) 1,000 mls @ 125 mls/hr IV .Q8H [facility] Stop: 03/08/21 03:17 Last Admin: 02/07/21 07:34 Dose: 125 mls/hr Documented by: Piperacillin Sod/Tazobactam (Sod 4.5 gm/ Dextrose) 120 mls @ 30 mls/hr IV Q8H [facility]; Protocol Stop: 02/16/21 03:17 Last Admin: 02/07/21 10:14 Dose: 30 mls/hr Documented by: Insulin Aspart (Insulin Aspart Per Unit) 0 units SC Q6 [facility] Stop: 03/08/21 05:59 Last Admin: 12/28/21 07:20 Dose: Not Given Documented by: Isosorbide Dinitrate (Isosorbide Dinitrate 10 Mg Tab) 30 mg PO [facility] Stop: 03/08/21 08:59 Last Admin: 02/07/21 07:47 Dose: 30 mg Documented by: Levothyroxine Sodium (Levothyroxine Sodium 75 Mcg Tablet) [facility] Stop: 03/08/21 06:29 Last Admin: 02/07/21 07:20 Dose: 75 mcg Documented by: Metoprolol Succinate (Metoprolol Succ 50mg Ext Rel Tab) 100 mg PO [facility] Stop: 03/08/21 08:59 Last Admin: 02/07/21 07:47 Dose: 100 mg Documented by: Miscellaneous Information (Piperacill/Tazobac Consult Active) 1 ea N/A UD PRN PRN Reason: Consult Stop: 03/08/21 03:17 Multivitamins/Minerals (Calcium 600mg + Vit D 400 Iu Tab) 1 tab PO [facility] Stop: 03/08/21 08:59 Last Admin: 02/07/21 07:46 Dose: 1 tab Documented by: Multivitamins/Minerals (Cerovite Adv Formula Tab) 1 tab PO [facility] Stop: 03/08/21 08:59 Last Admin: 02/07/21 07:47 Dose: 1 tab Documented by: Nitroglycerin (Nitroglycerin Sl 0.4 Mg/Tab Tab) 0.4 mg SL UD PRN PRN Reason: Chest Pain Stop: 03/08/21 05:17 Ondansetron HCl (Ondansetron Inj 2 Mg/Ml 2 Ml Vial) 4 mg IV Q6H PRN PRN Reason: Nausea Stop: 03/08/21 05:17 Vitamin D (Cholecalciferol 5,000 Units 125 Mcg Tab) 5,000 [facility] Stop: 03/08/21 08:59 Last Admin: 02/07/21 07:47 Dose: 5,000 units Documented by: (1) Chest pain Chest pain type: unspecified Qualified Code(s): R07.9 - Chest pain, unspecified
--- NOTE | 2021-02-07 11:17 | Surgery Progress Note ---
Date of Service February 07, 2021 Assessment & Plan (1) Elevated LFTs: (2) Chest pain: (3) Transaminitis: (4) Abdominal pain: Plan: 75 year-old male who presented to emergency department with chest pain, shortness of breath, and abdominal pain. ER work-up showed gallstones with sludge and normal CBD. elevated t. bili to 7 and leukocytosis of 26K. Troponin wnl. Abdominal exam with RUQ tenderness. Hemodynamically stable. POD # 1 s/p EUS/ERCP with choledocholithiasis and cholangitis with CBD stent placement t. bili increased to 9.2 (7.3) d. bili increased to 7.4 (5.9) LFTS and alk phos improved AST- 135 (276) ALT - 131 (197) Alk 234 (278) Plan: Would like to hold off on cholecystectomy until t. bili and liver enzymes continue to trend to normal range prior to entertaining cholecystectomy. Okay for clear liquids today Continue to hold plavix and coumadin and bridge with INR < 2.0 per cardiology recommendations repeat am labs will put NPO after midnight in case of significant improvement of labs in am, likely will plan for lap martinez on with Dr. Lazaro. Dr. Lazaro has seen and examined pt, agrees with above. Admission and Anticipated Discharge Date Admission Date: February 06, 2021 Subjective feeling good, no abdominal pain no nausea or vomiting no chest pain or shortness of breath urine still looks like dark passing gas and had small bowel movement Physical Exam Constitutional: WD/WN, vitals as above + obese; no acute distress and not ill appearing Eyes: icteric sclerae Respiratory: normal respiratory effort; no respiratory distress, no labored breathing and no retractions Gastrointestinal (Abdomen): Inspection/Auscultation: abdomen normal to inspection; abdomen not distended Percussion/Palpation: abdomen soft; abdomen nontender, no guarding and abdomen not rigid Skin: no rashes, warm and dry + jaundice Psychiatric: A+Ox3, euthymic affect Results & Data ([facility]) Vital Signs (Past 12 Hours) Vital Signs Temp Pulse Pulse Resp BP BP Pulse Ox 02/07/21 11:09 36.4 C L 62 20 119/77 95 02/07/21 08:04 36.3 C L 65 20 123/77 95 02/07/21 07:25 67 02/07/21 06:22 62 02/07/21 03:45 36.9 C 67 16 121/82 94 Laboratory Results 02/07/21 02/07/21 02/07/21 Range/Units 07:19 07:13 07:13 WBC 18.60 H (4.8-10.8) K/uL RBC 4.08 L (4.7-6.1) M/uL Hgb 12.9 L (14.0-18.0) g/dL Hct 40.8 L (42-52) % MCV 100.0 (80-100) fL MCH 31.6 (25-34) pg MCHC 31.6 L (32-36) g/dL RDW Std Deviation 60.1 H (36.4-46.3) fL RDW Coeff of Ibrahima 16.6 H (11.5-14.5) % Plt Count 233 (130-400) K/uL MPV 11.3 H (7.4-10.4) fL PT 14.4 H (9.0-12.0) Seconds INR 1.5 H (0.9-1.1) Sodium (136-145) mmol/L Potassium (3.5-5.1) mmol/L Chloride (98-107) mmol/L Carbon Dioxide (21-32) mmol/L Anion Gap (3-11) BUN (7-18) mg/dl Creatinine (0.6-1.4) mg/dl Est Cr Clr Drug Dosing ml/min Est GFR ( Amer) ml/min Est GFR (Non-Af Amer) ml/min BUN/Creatinine Ratio (10-20) Glucose (70-99) mg/dl POC Glucose 149 H (70-99) mg/dl Calcium (8.5-10.1) mg/dl Phosphorus (2.5-4.9) mg/dl Magnesium (1.8-2.4) mg/dl Total Bilirubin (0.2-1) mg/dl Direct Bilirubin (0-0.2) mg/dl AST (15-37) U/L ALT (12-78) Alkaline Phosphatase (45-117) U/L Total Protein (6.4-8.2) gm/dl Albumin (3.4-5.0) gm/dl Globulin (2.5-4.0) gm/dl Albumin/Globulin Ratio (0.9-2) 02/07/21 02/07/21 02/06/21 Range/Units 07:13 00:17 18:32 WBC (4.8-10.8) K/uL RBC (4.7-6.1) M/uL Hgb (14.0-18.0) g/dL Hct (42-52) % MCV (80-100) fL MCH (25-34) pg MCHC (32-36) g/dL RDW Std Deviation (36.4-46.3) fL RDW Coeff of Ibrahima (11.5-14.5) % Plt Count (130-400) K/uL MPV (7.4-10.4) fL PT (9.0-12.0) Seconds INR (0.9-1.1) Sodium 139 (136-145) mmol/L Potassium 4.1 (3.5-5.1) mmol/L Chloride 105 (98-107) mmol/L Carbon Dioxide 28 (21-32) mmol/L Anion Gap 6.0 (3-11) BUN 47 H (7-18) mg/dl Creatinine 2.15 H (0.6-1.4) mg/dl Est Cr Clr Drug Dosing 34.7 ml/min Est GFR ( Amer) 33.4 ml/min Est GFR (Non-Af Amer) 28.8 ml/min BUN/Creatinine Ratio 22.0 H (10-20) Glucose 156 H (70-99) mg/dl POC Glucose 165 H 162 H (70-99) mg/dl Calcium 8.8 (8.5-10.1) mg/dl Phosphorus 2.8 (2.5-4.9) mg/dl Magnesium 2.6 H (1.8-2.4) mg/dl Total Bilirubin 9.2 H (0.2-1) mg/dl Direct Bilirubin 7.4 H (0-0.2) mg/dl AST 135 H (15-37) U/L ALT 131 H (12-78) Alkaline Phosphatase 234 H (45-117) U/L Total Protein 6.7 (6.4-8.2) gm/dl Albumin 2.4 L (3.4-5.0) gm/dl Globulin 4.3 H (2.5-4.0) gm/dl Albumin/Globulin Ratio 0.6 L (0.9-2) 02/06/21 02/06/21 Range/Units 12:54 11:31 WBC (4.8-10.8) K/uL RBC (4.7-6.1) M/uL Hgb (14.0-18.0) g/dL Hct (42-52) % MCV (80-100) fL MCH (25-34) pg MCHC (32-36) g/dL RDW Std Deviation (36.4-46.3) fL RDW Coeff of Ibrahima (11.5-14.5) % Plt Count (130-400) K/uL MPV (7.4-10.4) fL PT 21.1 H (9.0-12.0) Seconds INR 2.2 H (0.9-1.1) Sodium (136-145) mmol/L Potassium (3.5-5.1) mmol/L Chloride (98-107) mmol/L Carbon Dioxide (21-32) mmol/L Anion Gap (3-11) BUN (7-18) mg/dl Creatinine (0.6-1.4) mg/dl Est Cr Clr Drug Dosing ml/min Est GFR ( Amer) ml/min Est GFR (Non-Af Amer) ml/min BUN/Creatinine Ratio (10-20) Glucose (70-99) mg/dl POC Glucose 126 H (70-99) mg/dl Calcium (8.5-10.1) mg/dl Phosphorus (2.5-4.9) mg/dl Magnesium (1.8-2.4) mg/dl Total Bilirubin (0.2-1) mg/dl Direct Bilirubin (0-0.2) mg/dl AST (15-37) U/L ALT (12-78) Alkaline Phosphatase (45-117) U/L Total Protein (6.4-8.2) gm/dl Albumin (3.4-5.0) gm/dl Globulin (2.5-4.0) gm/dl Albumin/Globulin Ratio (0.9-2) (1) Chest pain Chest pain type: unspecified Qualified Code(s): R07.9 - Chest pain, unspecified
--- NOTE | 2021-02-07 14:03 | Hospitalist Progress Note ---
Date of Service February 07, 2021 Assessment & Plan (1) Cholangitis: Plan: Secondary to choledocholithiasis status post ERCP with stent placement. He is clinically improved with improving leukocytosis. T bili is still elevated around 9 today and patient is jaundiced. Continue Zosyn and continue to trend LFTs daily. Plan for lap martinez in two days time pending clinical improvement. (2) Elevated LFTs: Plan: Secondary to #1, plan as above. (3) Atrial fibrillation with controlled ventricular rate: Plan: h/o afib, rhythm currently sinus/paced s/p 3AV block. Rate is 62. Coumadin on hold and INR <2 so will bridge with heparin. I notified surgical team of this change for smoother transition to the OR when ready. Cont current therapy. (4) BREANNA (acute kidney injury): Plan: baseline creat 1.4-1.7. Currently 2.15. Cont IVF and current therapies. Trend BMP in am. (5) PVD (peripheral vascular disease): Plan: Continue aspirin, Plavix on hold per GI team. Cardiology following and is okay with this. (6) CAD (coronary artery disease): Plan: chronic, stable. Cont current medical therapy as above. (7) DMII (diabetes mellitus, type 2): Plan: diet controlled DMII, A1C 6.9 reflecting good control. Cont bolus insulin PRN as needed for correction factor. Hold off on carb coverage or lantus at this time. Glucose is at goal. (8) DVT prophylaxis: Plan: heparin Full Code Dispo-to home after upcoming lap martinez planned for possibly of this week. I updated his who was at bedside and coordinated care with surgcal team. Yvette Flores DO [facility] Hospitalist Admission and Anticipated Discharge Date Admission Date: February 06, 2021 Subjective 75-year-old man presented to the ER with chest pain shortness of breath and abdominal pain. Work-up revealed acute cholangitis secondary to gallstones. He is status post ERCP on 02/06 with stent placement in common bile duct. Today he reports no abdominal pain, his urine appearing clear to him, he is up and moving around although feels slightly winded when he gets back in bed. Overall appears less short of breath. Discussed with his the plan, and she was at bedside. She requested perioperative discussions with the surgeon which I passed along to the surgical team. He denies any chest pain and is tolerating his diet. Leukocytosis improved from 28-18. Continues on Zosyn. Review of Systems Review of Systems: All systems were reviewed and negative except as indicated above. Physical Exam Physical Exam: CONSTITUTIONAL: WNWD, vitals as above, generally well- appearing, NAD EYES: normal conjunctivae, no scleral icterus ENT: external ear and nose normal, MMM NECK: trachea midline RESPIRATORY: clear to auscultation bilaterally, no crackles, rales or wheezes, normal respiratory effort CARDIOVASCULAR: regular rate and rhythm, S1 and 2 heard without murmurs, gallops or rubs, no JVD, no peripheral edema GASTROINTESTINAL: soft, nontender, ND, no guarding MUSCULOSKELETAL: strength 5/5 throughout, head is normocephalic and atraumatic, neck supple SKIN: warm and dry, +jaundice NEUROLOGIC: CN 2-12 grossly intact, no sensory deficit, normal cognition, normal speech, no tremor, no gross focal deficits. PSYCHIATRIC: alert cooperative and oriented to person, place and time. Results & Data Results & Data ([facility]) Vital Signs (Past 12 Hours) Vital Signs Temp Pulse Pulse Resp BP BP Pulse Ox 02/07/21 11:09 36.4 C L 62 20 119/77 95 02/07/21 08:04 36.3 C L 65 20 123/77 95 02/07/21 07:25 67 02/07/21 06:22 62 02/07/21 03:45 36.9 C 67 16 121/82 94 Laboratory Results Short CBC 02/07/21 Range/Units 07:13 WBC 18.60 H (4.8-10.8) K/uL Hgb 12.9 L (14.0-18.0) g/dL Hct 40.8 L (42-52) % Plt Count 233 (130-400) K/uL BMP 02/07/21 07:13 Sodium 139 Potassium 4.1 Chloride 105 Carbon Dioxide 28 BUN 47 H Creatinine 2.15 H Glucose 156 H Calcium 8.8 Liver Function 02/07/21 Range/Units 07:13 Total Bilirubin 9.2 H (0.2-1) mg/dl Direct Bilirubin 7.4 H (0-0.2) mg/dl AST 135 H (15-37) U/L ALT 131 H (12-78) Alkaline Phosphatase 234 H (45-117) U/L Albumin 2.4 L (3.4-5.0) gm/dl Medications Administered Current Inpatient Medications Acetaminophen (Acetaminophen 325 Mg Tab) 650 mg PO Q4H PRN PRN Reason: Pain or Fever Stop: 03/08/21 05:17 Aspirin (Aspirin 81 Mg Ectab) [facility] Stop: 03/09/21 08:59 Last Admin: 02/07/21 07:46 Dose: 81 mg Documented by: Atorvastatin Calcium (Atorvastatin 40 Mg Tab) 80 mg PO QPM [facility] Stop: 03/08/21 20:59 Last Admin: 02/06/21 21:17 Dose: 80 mg Documented by: Clopidogrel Bisulfate (Clopidogrel Bisulfate 75 Mg Tab) [facility] Stop: 03/08/21 08:59 Last Admin: 02/06/21 09:24 Dose: Not Given Documented by: Hydromorphone HCl (Hydromorphone Inj 0.5 Mg/0.5 Ml Syr) 0.5 mg IV Q4H PRN PRN Reason: Pain Stop: 02/20/21 03:16 Last Admin: 02/06/21 18:53 Dose: 0.5 mg Documented by: Sodium Chloride (Nss 1000ml) 1,000 mls @ 125 mls/hr IV .Q8H [facility] Stop: 03/08/21 03:17 Last Admin: 02/07/21 07:34 Dose: 125 mls/hr Documented by: Piperacillin Sod/Tazobactam (Sod 4.5 gm/ Dextrose) 120 mls @ 30 mls/hr IV Q8H [facility]; Protocol Stop: 02/16/21 03:17 Last Admin: 02/07/21 10:14 Dose: 30 mls/hr Documented by: Insulin Aspart (Insulin Aspart Per Unit) 0 units SC Q6 [facility] Stop: 03/08/21 05:59 Last Admin: 02/07/21 12:32 Dose: 3 units Documented by: Isosorbide Dinitrate (Isosorbide Dinitrate 10 Mg Tab) 30 [facility] Stop: 03/08/21 08:59 Last Admin: 02/07/21 07:47 Dose: 30 mg Documented by: Levothyroxine Sodium (Levothyroxine Sodium 75 Mcg Tablet) 75 mcg PO DAILYBB [facility] Stop: 03/08/21 06:29 Last Admin: 02/07/21 07:20 Dose: 75 mcg Documented by: Metoprolol Succinate (Metoprolol Succ 50mg Ext Rel Tab) 100 [facility] Stop: 03/08/21 08:59 Last Admin: 02/07/21 07:47 Dose: 100 mg Documented by: Miscellaneous Information (Piperacill/Tazobac Consult Active) 1 ea N/A UD PRN PRN Reason: Consult Stop: 03/08/21 03:17 Multivitamins/Minerals (Calcium 600mg + Vit D 400 Iu Tab) 1 tab PO [facility] Stop: 03/08/21 08:59 Last Admin: 02/07/21 07:46 Dose: 1 tab Documented by: Multivitamins/Minerals (Cerovite Adv Formula Tab) 1 [facility] [place] Stop: 03/08/21 08:59 Last Admin: 02/07/21 07:47 Dose: 1 tab Documented by: Nitroglycerin (Nitroglycerin Sl 0.4 Mg/Tab Tab) 0.4 mg SL UD PRN PRN Reason: Chest Pain Stop: 03/08/21 05:17 Ondansetron HCl (Ondansetron Inj 2 Mg/Ml 2 Ml Vial) 4 mg IV Q6H PRN PRN Reason: Nausea Stop: 03/08/21 05:17 Vitamin D (Cholecalciferol 5,000 Units 125 Mcg Tab) 5,000 units PO MoTuWeThFr [facility] Stop: 03/08/21 08:59 Last Admin: 02/07/21 07:47 Dose: 5,000 units Documented by:
[2021-02-07] MEDS ORDERED: Heparin IV Adult Wt-Based Standard *NO* Bolus Protocol IV SCH (14:05)
[2021-02-07 14:46] LABS: Basophils # (auto) 0.01 K/uL (0-0.2); Basophils % (auto) 0.1 %; Hematocrit (blood only) 37.3 % (42-52); Hemoglobin 11.8 g/dL (14.0-18.0); Immature Granulocytes # (auto) 0.05 K/uL (0.00-0.02); Immature Granulocytes % (auto) 0.3 %; Lymphocytes # (auto) 0.74 K/uL (1.2-3.4); Lymphocytes % (auto) 3.8 %; Mean Corpuscular Hemoglobin 31.8 pg (25-34); Mean Corpuscular Volume 100.5 fL (80-100); Mean Platelet Volume 11.3 fL (7.4-10.4); Monocytes # (auto) 1.11 K/uL (0.11-0.59); Monocytes % (auto) 5.7 %; Neutrophils # (auto) 17.67 K/uL (1.4-6.5); Neutrophils % (auto) 90.1 %; Platelet Count 231 K/uL (130-400); RDW Coefficient of Variation 16.7 % (11.5-14.5); RDW Standard Deviation 61.4 fL (36.4-46.3); Red Blood Count 3.71 M/uL (4.7-6.1); White Blood Count 19.58 K/uL (4.8-10.8)
[2021-02-07 14:48] LABS: Mean Corpuscular Hgb Conc 31.6 g/dL (32-36)
[2021-02-07 14:58] LABS: INR 1.4 (0.9-1.1); Partial Thromboplastin Ratio 1.1; Partial Thromboplastin Time 28.7 Seconds (21.0-31.0); Prothrombin Time 13.5 Seconds (9.0-12.0)
[2021-02-07] MEDS: HEPARIN SODIUM/DEXTROSE 25,000 UNITS/500 ML BAG IV SCH (15:01)
--- NOTE | 2021-02-07 17:50 | Electrocardiogram Report ---
Test Reason : Blood Pressure : / mmHG Vent. Rate : 065 BPM Atrial Rate : 063 BPM P-R Int : 000 ms QRS Dur : 188 ms QT Int : 496 ms P-R-T Axes : 000 -66 089 degrees QTc Int : 515 ms Ventricular-paced rhythm Abnormal ECG When compared with ECG of 05-FEB-2021 19:20, Vent. rate has decreased BY 18 BPM Confirmed by Pablo Dalal ([id number]) on 02/07/2021 5:50:39 PM Referred By: REFERRED SELF Confirmed By:Kevin Dalal
[2021-02-07 21:35] LABS: Partial Thromboplastin Ratio 2.2; Partial Thromboplastin Time 58.7 Seconds (21.0-31.0)
[2021-02-07] MEDS: ATORVASTATIN 40 MG TAB PO SCH (21:46)
[2021-02-08] MEDS: PIPERACILLIN/TAZOBACTAM 4.5 GM in DEXTROSE 5% 100 ML IV SCH ×3 (01:35→17:31)
[2021-02-08] MEDS: LEVOTHYROXINE SODIUM 75 MCG TABLET PO SCH (05:51)
[2021-02-08 06:34] LABS: Basophils # (auto) 0.01 K/uL (0-0.2); Basophils % (auto) 0.1 %; Eosinophils # (auto) 0.04 K/uL (0-0.5); Eosinophils % (auto) 0.2 %; Hematocrit (blood only) 38.3 % (42-52); Hemoglobin 12.1 g/dL (14.0-18.0); Immature Granulocytes # (auto) 0.05 K/uL (0.00-0.02); Immature Granulocytes % (auto) 0.3 %; Lymphocytes # (auto) 1.03 K/uL (1.2-3.4); Lymphocytes % (auto) 5.5 %; Mean Corpuscular Hemoglobin 31.8 pg (25-34); Mean Corpuscular Hgb Conc 31.6 g/dL (32-36); Mean Corpuscular Volume 100.8 fL (80-100); Mean Platelet Volume 11.5 fL (7.4-10.4); Monocytes # (auto) 1.13 K/uL (0.11-0.59); Neutrophils # (auto) 16.51 K/uL (1.4-6.5); Neutrophils % (auto) 87.9 %; Platelet Count 237 K/uL (130-400); RDW Coefficient of Variation 16.8 % (11.5-14.5); RDW Standard Deviation 61.9 fL (36.4-46.3); White Blood Count 18.77 K/uL (4.8-10.8)
[2021-02-08 07:06] LABS: INR 1.3 (0.9-1.1); Partial Thromboplastin Ratio 3.1; Prothrombin Time 12.5 Seconds (9.0-12.0)
[2021-02-08 07:11] LABS: Partial Thromboplastin Time 81.1 Seconds (21.0-31.0)
[2021-02-08 07:30] LABS: Albumin Globulin Ratio 0.6 (0.9-2); Albumin Level 2.2 gm/dl (3.4-5.0); BUN Creatinine Ratio 23.3 (10-20); Bilirubin,Total 4.7 mg/dl (0.2-1); Calcium 9.1 mg/dl (8.5-10.1); Creatinine Clr Calc Pharmacy 42.3 ml/min; Est GFR (African American) 39.1 ml/min; Est GFR (Non-African American) 33.7 ml/min; Magnesium 2.7 mg/dl (1.8-2.4); Phosphorus 2.5 mg/dl (2.5-4.9); Potassium 3.9 mmol/L (3.5-5.1); Total Protein 6.2 gm/dl (6.4-8.2)
--- NOTE | 2021-02-08 08:06 | Anesthesiology Consultation ---
Date of Service February 08, 2021 Assessment & Plan Chart Review Chart Review: Acceptable Risk for Surgery and Patient NOT seen in Pre Admission Testing Consults Requested none History Surgery Operation Date: 02/06/21 09:40 Proposed Procedures p Endoscopic Retrograde Cholangiopancreatogram - Karan James MD Operation Date: 02/09/21 07:00 Proposed Procedures p Laparoscopic Cholecystectomy - Sean Lazaro MD Height/Weight Height: 5 ft 8 in Weight: 122.3 kg Allergies Allergy/AdvReac Type Severity Reaction Status Date / Time Sulfa (Sulfonamide AdvReac Mild STOMACH Verified 02/06/21 14:15 Antibiotics) CRAMPS Medications Home Medications Medication Instructions Recorded Confirmed Last Taken atorvastatin 80 mg tablet 80 mg PO QPM 03/04/19 02/05/21 02/04/21 clopidogrel 75 mg tablet 75 mg PO QAM 03/04/19 02/05/21 02/05/21 isosorbide dinitrate 30 mg tablet 30 mg PO QAM tab 03/04/19 02/05/21 02/05/21 metolazone 2.5 mg tablet 2.5 mg PO UD 03/04/19 02/05/21 02/05/21 metoprolol succinate 100 mg 100 mg PO QAM 03/04/19 02/05/21 02/05/21 capsule sprinkle, ext. release 24 hr potassium chloride 20 mEq oral 60 meq PO BID 03/04/19 02/05/21 02/05/21 packet torsemide 10 mg tablet 20 mg PO QAM 03/04/19 02/05/21 02/05/21 warfarin 5 mg tablet (Jantoven) 2.5 - 5 mg PO QPM 03/04/19 02/05/21 02/04/21 calcium carbonate 500 mg-vitamin 1 tab PO QAM 07/09/19 02/05/21 02/05/21 D3 5 mcg (200 unit) tablet (Calcium 500 + D) cholecalciferol (vitamin D3) 125 125 mcg PO [id number] 07/09/19 02/05/21 02/05/21 mcg (5,000 unit) tablet (Vitamin D3) [id number] 1 tab PO QAM 07/09/19 02/05/21 02/05/21 tablet (Multivitamin 50 Plus) levothyroxine 75 mcg tablet 75 mcg PO DAILY 02/05/21 02/05/21 Unknown Active Medications Generic Name Dose Route Start Last Admin Trade Name Abby PRN Reason Stop Dose Admin Aspirin 81 mg 02/07/21 09:00 02/07/21 07:46 Aspirin 81 Mg Ectab PO 03/09/21 08:59 81 mg QAM PANDA Administration Atorvastatin Calcium 80 mg 02/06/21 21:00 02/07/21 21:46 Atorvastatin 40 Mg Tab PO 03/08/21 20:59 80 mg QPM PANDA Administration Clopidogrel Bisulfate 75 mg 02/06/21 09:00 02/06/21 09:24 Clopidogrel Bisulfate 75 Mg Tab PO 03/08/21 08:59 Not Given QAM PANDA Piperacillin Sod/Tazobactam 120 mls @ 30 mls/hr 02/06/21 03:18 02/08/21 05:55 Sod 4.5 gm/ Dextrose IV 02/16/21 03:17 Infused Q8H PANDA Infusion Protocol Heparin Sodium/Dextrose 25,000 units in 500 mls @ 28 mls/hr 02/07/21 14:30 02/08/21 07:15 Heparin Sodium/Dextrose IV 03/09/21 14:29 1,400 units/hr .[id number] PANDA 28 mls/hr Titration Protocol 1,400 UNITS/HR Insulin Aspart 0 units 02/07/21 16:30 02/07/21 21:26 Insulin Aspart Per Unit SC 03/09/21 16:29 Not Given ACHS PANDA Isosorbide Dinitrate 30 mg 02/06/21 09:00 02/07/21 07:47 Isosorbide Dinitrate 10 Mg Tab PO 03/08/21 08:59 30 mg QAM [facility] Administration Levothyroxine Sodium 75 mcg 02/06/21 06:30 02/08/21 05:51 Levothyroxine Sodium 75 Mcg Tablet PO 03/08/21 06:29 75 mcg DAILYBB PANDA Administration Metoprolol Succinate 100 mg 02/06/21 09:00 02/07/21 07:47 Metoprolol Succ 50mg Ext Rel Tab PO 03/08/21 08:59 100 mg QAM PANDA Administration Multivitamins/Minerals 1 tab 02/06/21 09:00 02/07/21 07:46 Calcium 600mg + Vit D 400 Iu Tab PO 03/08/21 08:59 1 tab QAM PANDA Administration Multivitamins/Minerals 1 tab 02/06/21 09:00 02/07/21 07:47 Cerovite Adv Formula Tab PO 03/08/21 08:59 1 tab QAM PANDA Administration Vitamin D 5,000 units 02/06/21 09:00 02/07/21 07:47 Cholecalciferol 5,000 Units 125 Mcg Tab PO 03/08/21 08:59 5,000 units MoTuWeThFr PANDA Administration NPO Date Last Intake of Fluids: 02/06/21 Time Last Intake of Fluids: 05:00 Last Intake of Fluids Comment: Sip water Date Last Intake of Solids: 02/04/21 Time Last Intake of Solids: 10:00 Past Medical History Medical History Arthritis Atrial fibrillation on warfarin; follows with Dr. 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- now on 2-3L O2 daily DVT (deep venous thrombosis) 1997; unk etiology Gout Hypothyroidism no meds Myocardial Infarction 1999 Pacemaker Medtronic implanted 2011, last check 02/2020 Skin cancer SCC Sleep apnea BIPAP + 2.5-3 L O2 HS Past Family History Family History Son Family history of diabetes mellitus Past Surgical History Surgical History History of cardiac cath [facility] 1999 History of cardiac cath 2002 1 STENT [facility] History of cataract surgery left History of coronary artery bypass graft 2 VESSELS [facility] 1999 History of permanent cardiac pacemaker placement 2012 History of reverse total replacement of right shoulder joint (~07/2019) S/P vascular surgery RIGHT FEM-POP BYPASS GRAFT Social History Smoking Status: Former smoker tobacco type: cigarettes and smokeless tobacco Hx Alcohol Use: No Hx Substance Use: No substance use type: does not use Physical Exam Vital Signs Last Vital Signs Temp 97.5 F L 02/08/21 07:52 Pulse 92 H 02/08/21 07:52 Resp 16 02/08/21 07:52 BP 124/82 02/08/21 07:52 Pulse Ox 92 02/08/21 07:52 Testing Laboratory Results 02/08/21 05:40 02/08/21 05:40 PT 12.5 Seconds (9.0-12.0) H 02/08/21 05:40 INR 1.3 (0.9-1.1) H 02/08/21 05:40 APTT 81.1 Seconds (21.0-31.0) H* 02/08/21 05:40 Hemoglobin A1c 6.9 % (4.5-5.6) H 02/06/21 06:09 Urine Color Dark Yellow 02/06/21 06:00 Urine Appearance Clear (Clear) 02/06/21 06:00 Urine pH 5.5 (4.5-7.5) 02/06/21 06:00 Ur Specific Thelma 1.043 (1.000-1.030) H 02/06/21 06:00 Urine Protein Trace (Negative) H 02/06/21 06:00 Urine Glucose (UA) Negative (Negative) 02/06/21 06:00 Urine Ketones Negative (Negative) 02/06/21 06:00 Urine Nitrite Negative (Negative) 02/06/21 06:00 Ur Leukocyte Esterase Negative (Negative) 02/06/21 06:00 Urine WBC (Auto) 1-5 /hpf (0-5) 02/06/21 06:00 Urine RBC (Auto) 0-4 /hpf (0-4) 02/06/21 06:00 U Hyaline Cast (Auto) 1-5 /lpf (0-5) 02/06/21 06:00 U Epithel Cells (Auto) 20-30 /lpf (0-5) H 02/06/21 06:00 Urine Bacteria (Auto) Negative (Negative) 02/06/21 06:00 02/06/21 06:00 Urine Culture - Preliminary Urine,Clean Catch No growth - Less than 1,000 colonies/mL, Final report to follow. 02/07/21 20:26 POC Glucose 114 H Electrocardiogram Date: 02/08/21 V-Paced rhythm @ 60 bpm Chest X-Ray Date: 02/05/21 IMPRESSION: No acute cardiopulmonary disease. Marked asymmetric elevation the right hemidiaphragm with crowding of the bronchovascular markings at the right lung base. Echocardiogram Date: 02/06/21 EF: 50-55 LV Function: normal Left atrial enlargement, abnormal septal wall motion consistent with RV pacing.
[2021-02-08 08:12] LABS: Partial Thromboplastin Ratio 2.8
[2021-02-08 08:25] LABS: Partial Thromboplastin Time 74.5 Seconds (21.0-31.0)
[2021-02-08] MEDS: HEPARIN SODIUM/DEXTROSE 25,000 UNITS/500 ML BAG IV SCH (08:50)
[2021-02-08] MEDS: CHOLECALCIFEROL 5,000 UNITS 125 MCG TAB PO SCH (08:52)
[2021-02-08] MEDS: CEROVITE ADV FORMULA TAB PO SCH (08:52)
[2021-02-08] MEDS: CALCIUM 600MG + VIT D 400 IU TAB PO SCH (08:52)
--- NOTE | 2021-02-08 09:52 | Cardiology Progress Note ---
Date of Service February 08, 2021 Assessment & Plan (1) Transaminitis: (2) Chest pain: (3) CAD (coronary artery disease): (4) BREANNA (acute kidney injury): (5) Atrial fibrillation with controlled ventricular rate: (6) PVD (peripheral vascular disease): (7) Cholangitis: Plan: Patient admitted with CP/abdominal pain, found to have significantly elevated lipase and LFT's. Gallstones noted. Diagnosed with cholangitis. ERCP completed, received biliary stent. Plans for cholecystectomy today. His chest pain was atypical for cardiac etiology. Echo report reveals stable findings with normal LVEF 50-54% Cardiac enzymes unremarkable. Acceptable to hold Coumadin. Given chronic afib, PVD and high CHADSVASC score, recommend heparin bridge when INR < 2.0 He is on chronic Plavix due to complex CAD and PVD. Plavix on hold for procedures and transitioned to ASA 81 mg. continue metoprolol without interruption. Renal function improving. Holding torsemide/metolazone. Patient reports significant dietary improvements over stefania last year and weight loss. Hoping he can avoid resuming metolazone in the future. Will re-evaluate diuretic dosage upon discharge. Will follow. Case discussed with Dr. Matthews Admission and Anticipated Discharge Date Admission Date: February 06, 2021 Supervising Physician Co-Signing Physician Notes Patient seen and examined with Ceci Suero PA-C. Agree with findings and assessment as above. For cholecystectomy. Plavix held in anticipation and transition to aspirin 81 mg daily, will continue. Subjective Patient resting comfortably in bed. Feeling "good". SOB improved. No recurrent chest pain. No abdominal pain. Edema stable. No dizziness. Remains mildly jaundiced, but improved from yesterday. He is NPO for possible cholecystectomy today. Review of Systems 2 Review of Systems: All systems reviewed & are unremarkable except as noted in HPI & below Physical Exam Constitutional: WD/WN, vitals as above well developed; no acute distress Eyes: PERRL, conjunctivae normal, anicteric sclerae sclerae not anicteric Neck: trachea midline, no thyromegaly Respiratory: normal respiratory effort, lungs clear to auscultation Cardiovascular: Rate/Rhythm: regular rate and regular rhythm Heart Sounds: normal S1 and normal S2; no murmur Vessels: no JVD Extremities: no edema Gastrointestinal (Abdomen): Inspection/Auscultation: abdomen normal to inspection; abdomen not distended Percussion/Palpation: abdomen nontender Skin: no rashes, warm and dry + jaundice Neurologic: PERRL, EOMI, accommodation nl, no face palsy, no dysarthria Psychiatric: A+Ox3, euthymic affect Results & Data ([facility]) Vital Signs (Past 12 Hours) Vital Signs Temp Pulse Pulse Resp BP BP Pulse Ox 02/08/21 07:52 36.4 C L 92 H 16 124/82 92 02/08/21 03:33 60 16 92 02/08/21 03:00 36.3 C L 64 16 128/73 94 02/08/21 00:56 89 02/07/21 23:41 36.4 C L 80 18 152/98 H 96 02/07/21 22:25 72 16 94 Laboratory Results 02/08/21 02/08/21 02/08/21 Range/Units 07:37 05:40 05:40 WBC 18.77 H (4.8-10.8) K/uL RBC 3.80 L (4.7-6.1) M/uL Hgb 12.1 L (14.0-18.0) g/dL Hct 38.3 L (42-52) % MCV 100.8 H (80-100) fL MCH 31.8 (25-34) pg MCHC 31.6 L (32-36) g/dL RDW Std Deviation 61.9 H (36.4-46.3) fL RDW Coeff of Ibrahima 16.8 H (11.5-14.5) % Plt Count 237 (130-400) K/uL MPV 11.5 H (7.4-10.4) fL Immature Gran % (Auto) 0.3 % Neut % (Auto) 87.9 % Lymph % (Auto) 5.5 % [place] % (Auto) 6.0 % Eos % (Auto) 0.2 % Baso % (Auto) 0.1 % Neut # (Auto) 16.51 H (1.4-6.5) K/uL Lymph # (Auto) 1.03 L (1.2-3.4) K/uL [place] # (Auto) 1.13 H (0.11-0.59) K/uL Eos # (Auto) 0.04 (0-0.5) K/uL Baso # (Auto) 0.01 (0-0.2) K/uL Immature Gran # (Auto) 0.05 H (0.00-0.02) K/uL PT (9.0-12.0) Seconds INR (0.9-1.1) APTT 74.5 H* (21.0-31.0) Seconds PTT Ratio 2.8 Sodium 138 (136-145) mmol/L Potassium 3.9 (3.5-5.1) mmol/L Chloride 105 (98-107) mmol/L Carbon Dioxide 27 (21-32) mmol/L Anion Gap 6.0 (3-11) BUN 44 H (7-18) mg/dl Creatinine 1.89 H (0.6-1.4) mg/dl Est Cr Clr Drug Dosing 42.3 ml/min Est GFR ( Amer) 39.1 ml/min Est GFR (Non-Af Amer) 33.7 ml/min BUN/Creatinine Ratio 23.3 H (10-20) Glucose 146 H (70-99) mg/dl POC Glucose (70-99) mg/dl Calcium 9.1 (8.5-10.1) mg/dl Phosphorus 2.5 (2.5-4.9) mg/dl Magnesium 2.7 H (1.8-2.4) mg/dl Total Bilirubin 4.7 H (0.2-1) mg/dl AST 87 H (15-37) U/L ALT 101 H (12-78) Alkaline Phosphatase 198 H (45-117) U/L Total Protein 6.2 L (6.4-8.2) gm/dl Albumin 2.2 L (3.4-5.0) gm/dl Globulin 4.0 (2.5-4.0) gm/dl Albumin/Globulin Ratio 0.6 L (0.9-2) Specimen Hemolysis 02/08/21 02/07/21 02/07/21 Range/Units 05:40 20:49 20:26 WBC (4.8-10.8) K/uL RBC (4.7-6.1) M/uL Hgb (14.0-18.0) g/dL Hct (42-52) % MCV (80-100) fL MCH (25-34) pg MCHC (32-36) g/dL RDW Std Deviation (36.4-46.3) fL RDW Coeff of Ibrahima (11.5-14.5) % Plt Count (130-400) K/uL MPV (7.4-10.4) fL Immature Gran % (Auto) % Neut % (Auto) % Lymph % (Auto) % [place] % (Auto) % Eos % (Auto) % Baso % (Auto) % Neut # (Auto) (1.4-6.5) K/uL Lymph # (Auto) (1.2-3.4) K/uL [place] # (Auto) (0.11-0.59) K/uL Eos # (Auto) (0-0.5) K/uL Baso # (Auto) (0-0.2) K/uL Immature Gran # (Auto) (0.00-0.02) K/uL PT 12.5 H (9.0-12.0) Seconds INR 1.3 H (0.9-1.1) APTT 81.1 H* 58.7 H* (21.0-31.0) Seconds PTT Ratio 3.1 2.2 Sodium (136-145) mmol/L Potassium (3.5-5.1) mmol/L Chloride (98-107) mmol/L Carbon Dioxide (21-32) mmol/L Anion Gap (3-11) BUN (7-18) mg/dl Creatinine (0.6-1.4) mg/dl Est Cr Clr Drug Dosing ml/min Est GFR ( Amer) ml/min Est GFR (Non-Af Amer) ml/min BUN/Creatinine Ratio (10-20) Glucose (70-99) mg/dl POC Glucose 114 H (70-99) mg/dl Calcium (8.5-10.1) mg/dl Phosphorus (2.5-4.9) mg/dl Magnesium (1.8-2.4) mg/dl Total Bilirubin (0.2-1) mg/dl AST (15-37) U/L ALT (12-78) Alkaline Phosphatase (45-117) U/L Total Protein (6.4-8.2) gm/dl Albumin (3.4-5.0) gm/dl Globulin (2.5-4.0) gm/dl Albumin/Globulin Ratio (0.9-2) Specimen Hemolysis 02/07/21 02/07/21 02/07/21 Range/Units 16:38 14:27 14:27 WBC 19.58 H (4.8-10.8) K/uL RBC 3.71 L (4.7-6.1) M/uL Hgb 11.8 L (14.0-18.0) g/dL Hct 37.3 L (42-52) % MCV 100.5 H (80-100) fL MCH 31.8 (25-34) pg MCHC 31.6 L (32-36) g/dL RDW Std Deviation 61.4 H (36.4-46.3) fL RDW Coeff of Ibrahima 16.7 H (11.5-14.5) % Plt Count 231 (130-400) K/uL MPV 11.3 H (7.4-10.4) fL Immature Gran % (Auto) 0.3 % Neut % (Auto) 90.1 % Lymph % (Auto) 3.8 % [place] % (Auto) 5.7 % Eos % (Auto) 0.0 % Baso % (Auto) 0.1 % Neut # (Auto) 17.67 H (1.4-6.5) K/uL Lymph # (Auto) 0.74 L (1.2-3.4) K/uL [place] # (Auto) 1.11 H (0.11-0.59) K/uL Eos # (Auto) 0.00 (0-0.5) K/uL Baso # (Auto) 0.01 (0-0.2) K/uL Immature Gran # (Auto) 0.05 H (0.00-0.02) K/uL PT 13.5 H (9.0-12.0) Seconds INR 1.4 H (0.9-1.1) APTT 28.7 (21.0-31.0) Seconds PTT Ratio 1.1 Sodium (136-145) mmol/L Potassium (3.5-5.1) mmol/L Chloride (98-107) mmol/L Carbon Dioxide (21-32) mmol/L Anion Gap (3-11) BUN (7-18) mg/dl Creatinine (0.6-1.4) mg/dl Est Cr Clr Drug Dosing ml/min Est GFR ( Amer) ml/min Est GFR (Non-Af Amer) ml/min BUN/Creatinine Ratio (10-20) Glucose (70-99) mg/dl POC Glucose 145 H (70-99) mg/dl Calcium (8.5-10.1) mg/dl Phosphorus (2.5-4.9) mg/dl Magnesium (1.8-2.4) mg/dl Total Bilirubin (0.2-1) mg/dl AST (15-37) U/L ALT (12-78) Alkaline Phosphatase (45-117) U/L Total Protein (6.4-8.2) gm/dl Albumin (3.4-5.0) gm/dl Globulin (2.5-4.0) gm/dl Albumin/Globulin Ratio (0.9-2) Specimen Hemolysis 02/07/21 Range/Units 11:39 WBC (4.8-10.8) K/uL RBC (4.7-6.1) M/uL Hgb (14.0-18.0) g/dL Hct (42-52) % MCV (80-100) fL MCH (25-34) pg MCHC (32-36) g/dL RDW Std Deviation (36.4-46.3) fL RDW Coeff of Ibrahima (11.5-14.5) % Plt Count (130-400) K/uL MPV (7.4-10.4) fL Immature Gran % (Auto) % Neut % (Auto) % Lymph % (Auto) % [place] % (Auto) % Eos % (Auto) % Baso % (Auto) % Neut # (Auto) (1.4-6.5) K/uL Lymph # (Auto) (1.2-3.4) K/uL [place] # (Auto) (0.11-0.59) K/uL Eos # (Auto) (0-0.5) K/uL Baso # (Auto) (0-0.2) K/uL Immature Gran # (Auto) (0.00-0.02) K/uL PT (9.0-12.0) Seconds INR (0.9-1.1) APTT (21.0-31.0) Seconds PTT Ratio Sodium (136-145) mmol/L Potassium (3.5-5.1) mmol/L Chloride (98-107) mmol/L Carbon Dioxide (21-32) mmol/L Anion Gap (3-11) BUN (7-18) mg/dl Creatinine (0.6-1.4) mg/dl Est Cr Clr Drug Dosing ml/min Est GFR ( Amer) ml/min Est GFR (Non-Af Amer) ml/min BUN/Creatinine Ratio (10-20) Glucose (70-99) mg/dl POC Glucose 201 H (70-99) mg/dl Calcium (8.5-10.1) mg/dl Phosphorus (2.5-4.9) mg/dl Magnesium (1.8-2.4) mg/dl Total Bilirubin (0.2-1) mg/dl AST (15-37) U/L ALT (12-78) Alkaline Phosphatase (45-117) U/L Total Protein (6.4-8.2) gm/dl Albumin (3.4-5.0) gm/dl Globulin (2.5-4.0) gm/dl Albumin/Globulin Ratio (0.9-2) Specimen Hemolysis Diagnostic Findings Telemetry reviewed - Ventricular paced Medications Administered Current Inpatient Medications Acetaminophen (Acetaminophen 325 Mg Tab) 650 mg PO Q4H PRN PRN Reason: Pain or Fever Stop: 03/08/21 05:17 Aspirin (Aspirin 81 Mg Ectab) [facility] [place]: 03/09/21 08:59 Last Admin: 02/07/21 07:46 Dose: 81 mg Documented by: Atorvastatin Calcium (Atorvastatin 40 Mg Tab) 80 mg PO QPM [facility] Stop: 03/08/21 20:59 Last Admin: 02/07/21 21:46 Dose: 80 mg Documented by: Clopidogrel Bisulfate (Clopidogrel Bisulfate 75 Mg Tab) 75 mg PO QAM [facility] Stop: 03/08/21 08:59 Last Admin: 02/06/21 09:24 Dose: Not Given Documented by: Piperacillin Sod/Tazobactam (Sod 4.5 gm/ Dextrose) 120 mls @ 30 mls/hr IV Q8H [facility]; Protocol Stop: 02/16/21 03:17 Last Infusion: 02/08/21 05:55 Dose: Infused Documented by: Heparin Sodium/Dextrose (Heparin Sodium/Dextrose) 25,000 units in 500 mls @ 28 mls/hr IV .[id number] [facility]; Protocol Stop: 03/09/21 14:29 Last Admin: 02/08/21 08:50 Dose: 1,400 units/hr, 28 mls/hr Documented by: Insulin Aspart (Insulin Aspart Per Unit) 0 units SC ACHS [facility] Stop: 03/09/21 16:29 Last Admin: 02/07/21 21:26 Dose: Not Given Documented by: Isosorbide Dinitrate (Isosorbide Dinitrate 10 Mg Tab) 30 mg PO [facility] Stop: 03/08/21 08:59 Last Admin: 02/07/21 07:47 Dose: 30 mg Documented by: Levothyroxine Sodium (Levothyroxine Sodium 75 Mcg Tablet) [facility]: 03/08/21 06:29 Last Admin: 02/08/21 05:51 Dose: 75 mcg Documented by: Metoprolol Succinate (Metoprolol Succ 50mg Ext Rel Tab) 100 mg PO [facility] Stop: 03/08/21 08:59 Last Admin: 02/07/21 07:47 Dose: 100 mg Documented by: Miscellaneous Information (Piperacill/Tazobac Consult Active) 1 ea N/A UD PRN PRN Reason: Consult Stop: 03/08/21 03:17 Multivitamins/Minerals (Calcium 600mg + Vit D 400 Iu Tab) 1 tab PO [facility] Stop: 03/08/21 08:59 Last Admin: 02/08/21 08:52 Dose: 1 tab Documented by: Multivitamins/Minerals (Cerovite Adv Formula Tab) 1 tab PO [facility] Stop: 03/08/21 08:59 Last Admin: 02/08/21 08:52 Dose: 1 tab Documented by: Nitroglycerin (Nitroglycerin Sl 0.4 Mg/Tab Tab) 0.4 mg SL UD PRN PRN Reason: Chest Pain Stop: 03/08/21 05:17 Ondansetron HCl (Ondansetron Inj 2 Mg/Ml 2 Ml Vial) 4 mg IV Q6H PRN PRN Reason: Nausea Stop: 03/08/21 05:17 Vitamin D (Cholecalciferol 5,000 Units 125 Mcg Tab) 5,000 units PO [id number] [facility] Stop: 03/08/21 08:59 Last Admin: 02/08/21 08:52 Dose: 5,000 units Documented by: (1) Chest pain Chest pain type: unspecified Qualified Code(s): R07.9 - Chest pain, unspecified
--- NOTE | 2021-02-08 10:26 | Surgery Progress Note ---
Date of Service February 08, 2021 Assessment & Plan (1) Elevated LFTs: Plan: pt is a 75 year-old male who was admitted to hospital for acute cholecystitis with cholelithiasis and cholangitis, S/P ERCP, LFT better, PLan, DR. Lazaro off for a few days, I cover this pt, I reviewed pt's H/P, labs, U/S study ERCP with pt, I recommend to do laparoscopic cholecystectomy, possible open or cholangiogram tomorrow morning, D/W benefits, risks and alternatives of the surgery, the risks - infection, bleeding, abscess, sepsis, multiple organs failure, [place], DVT, stroke, , pt understood, he agrees with the surgery, he signed informed consent, I answered all questions, 1, NPO after MN, pt can have full liquid diet today, 2, Hold heparin after MN (2) Chest pain: (3) Transaminitis: (4) Abdominal pain: Plan: 75 year-old male who presented to emergency department with chest pain, shortness of breath, and abdominal pain. ER work-up showed gallstones with sludge and normal CBD. elevated t. bili to 7 and leukocytosis of 26K. Troponin wnl. Abdominal exam with RUQ tenderness. Hemodynamically stable. POD # 1 s/p EUS/ERCP with choledocholithiasis and cholangitis with CBD stent placement t. bili increased to 9.2 (7.3) d. bili increased to 7.4 (5.9) LFTS and alk phos improved AST- 135 (276) ALT - 131 (197) Alk 234 (278) Plan: Would like to hold off on cholecystectomy until t. bili and liver enzymes continue to trend to normal range prior to entertaining cholecystectomy. Okay for clear liquids today Continue to hold plavix and coumadin and bridge with INR < 2.0 per cardiology recommendations repeat am labs will put NPO after midnight in case of significant improvement of labs in am, likely will plan for lap martinez on with Dr. Lazaro. Dr. Lazaro has seen and examined pt, agrees with above. Admission and Anticipated Discharge Date Admission Date: February 06, 2021 Supervising Physician Co-Signing Physician Notes Patient seen and examined with Ceci Suero PA-C. Agree with findings and assessment as above. Feeling much better today. Do not see any cardiac component to his presenting complaints. Okay to hold Coumadin for upcoming procedures. If necessary, Plavix can be substituted for with aspirin 81 mg daily. Subjective Patient resting comfortably in bed. Feeling "good". SOB improved. No recurrent chest pain. No abdominal pain. Edema stable. No dizziness. Remains mildly jaundiced, but improved from yesterday. He is NPO for possible cholecystectomy today. 02/08/2021 10:22AM DR. Bruno F/U S/P ERCP, cholangitis, acute cholecystitis, pt feels better, less abdominal pain, no nausea, no vomiting, no fever, LFT better, WBC 18,000, I reviewed pt's H/P, labs, U/S study , ERCP with pt, Physical Exam Constitutional: WD/WN, vitals as above Eyes: PERRL, conjunctivae normal, anicteric sclerae Neck: trachea midline, no thyromegaly Respiratory: normal respiratory effort, lungs clear to auscultation Cardiovascular: Rate/Rhythm: + irregularly irregular Gastrointestinal (Abdomen): soft, mild tenderness at RUQ, no rebound pain, no distend, Musculoskeletal: no cyanosis or clubbing, extremities motor strength 5/5 Neurologic: patellar DTR's 2+ bilat, sensation intact Psychiatric: A+Ox3, euthymic affect Results & Data ([facility]) Vital Signs (Past 12 Hours) Vital Signs Temp Pulse Pulse Resp BP BP Pulse Ox 02/08/21 07:52 36.4 C L 92 H 16 124/82 92 02/08/21 03:33 60 16 92 02/08/21 03:00 36.3 C L 64 16 128/73 94 02/08/21 00:56 89 02/07/21 23:41 36.4 C L 80 18 152/98 H 96 02/07/21 22:25 72 16 94 Laboratory Results Abnormal lab results 02/07/21 02/07/21 02/07/21 Range/Units 11:39 14:27 14:27 WBC 19.58 H (4.8-10.8) K/uL RBC 3.71 L (4.7-6.1) M/uL Hgb 11.8 L (14.0-18.0) g/dL Hct 37.3 L (42-52) % MCV 100.5 H (80-100) fL MCHC 31.6 L (32-36) g/dL RDW Std Deviation 61.4 H (36.4-46.3) fL RDW Coeff of Ibrahima 16.7 H (11.5-14.5) % MPV 11.3 H (7.4-10.4) fL Neut # (Auto) 17.67 H (1.4-6.5) K/uL Lymph # (Auto) 0.74 L (1.2-3.4) K/uL [place] # (Auto) 1.11 H (0.11-0.59) K/uL Immature Gran # (Auto) 0.05 H (0.00-0.02) K/uL PT 13.5 H (9.0-12.0) Seconds INR 1.4 H (0.9-1.1) APTT (21.0-31.0) Seconds BUN (7-18) mg/dl Creatinine (0.6-1.4) mg/dl BUN/Creatinine Ratio (10-20) Glucose (70-99) mg/dl POC Glucose 201 H (70-99) mg/dl Magnesium (1.8-2.4) mg/dl Total Bilirubin (0.2-1) mg/dl AST (15-37) U/L ALT (12-78) Alkaline Phosphatase (45-117) U/L Total Protein (6.4-8.2) gm/dl Albumin (3.4-5.0) gm/dl Albumin/Globulin Ratio (0.9-2) 02/07/21 02/07/21 02/07/21 Range/Units 16:38 20:26 20:49 WBC (4.8-10.8) K/uL RBC (4.7-6.1) M/uL Hgb (14.0-18.0) g/dL Hct (42-52) % MCV (80-100) fL MCHC (32-36) g/dL RDW Std Deviation (36.4-46.3) fL RDW Coeff of Ibrahima (11.5-14.5) % MPV (7.4-10.4) fL Neut # (Auto) (1.4-6.5) K/uL Lymph # (Auto) (1.2-3.4) K/uL [place] # (Auto) (0.11-0.59) K/uL Immature Gran # (Auto) (0.00-0.02) K/uL PT (9.0-12.0) Seconds INR (0.9-1.1) APTT 58.7 H* (21.0-31.0) Seconds BUN (7-18) mg/dl Creatinine (0.6-1.4) mg/dl BUN/Creatinine Ratio (10-20) Glucose (70-99) mg/dl POC Glucose 145 H 114 H (70-99) mg/dl Magnesium (1.8-2.4) mg/dl Total Bilirubin (0.2-1) mg/dl AST (15-37) U/L ALT (12-78) Alkaline Phosphatase (45-117) U/L Total Protein (6.4-8.2) gm/dl Albumin (3.4-5.0) gm/dl Albumin/Globulin Ratio (0.9-2) 02/08/21 02/08/21 02/08/21 Range/Units 05:40 05:40 05:40 WBC 18.77 H (4.8-10.8) K/uL RBC 3.80 L (4.7-6.1) M/uL Hgb 12.1 L (14.0-18.0) g/dL Hct 38.3 L (42-52) % MCV 100.8 H (80-100) fL MCHC 31.6 L (32-36) g/dL RDW Std Deviation 61.9 H (36.4-46.3) fL RDW Coeff of Ibrahima 16.8 H (11.5-14.5) % MPV 11.5 H (7.4-10.4) fL Neut # (Auto) 16.51 H (1.4-6.5) K/uL Lymph # (Auto) 1.03 L (1.2-3.4) K/uL [place] # (Auto) 1.13 H (0.11-0.59) K/uL Immature Gran # (Auto) 0.05 H (0.00-0.02) K/uL PT 12.5 H (9.0-12.0) Seconds INR 1.3 H (0.9-1.1) APTT 81.1 H* (21.0-31.0) Seconds BUN 44 H (7-18) mg/dl Creatinine 1.89 H (0.6-1.4) mg/dl BUN/Creatinine Ratio 23.3 H (10-20) Glucose 146 H (70-99) mg/dl POC Glucose (70-99) mg/dl Magnesium 2.7 H (1.8-2.4) mg/dl Total Bilirubin 4.7 H (0.2-1) mg/dl AST 87 H (15-37) U/L ALT 101 H (12-78) Alkaline Phosphatase 198 H (45-117) U/L Total Protein 6.2 L (6.4-8.2) gm/dl Albumin 2.2 L (3.4-5.0) gm/dl Albumin/Globulin Ratio 0.6 L (0.9-2) 02/08/21 Range/Units 07:37 WBC (4.8-10.8) K/uL RBC (4.7-6.1) M/uL Hgb (14.0-18.0) g/dL Hct (42-52) % MCV (80-100) fL MCHC (32-36) g/dL RDW Std Deviation (36.4-46.3) fL RDW Coeff of Ibrahima (11.5-14.5) % MPV (7.4-10.4) fL Neut # (Auto) (1.4-6.5) K/uL Lymph # (Auto) (1.2-3.4) K/uL [place] # (Auto) (0.11-0.59) K/uL Immature Gran # (Auto) (0.00-0.02) K/uL PT (9.0-12.0) Seconds INR (0.9-1.1) APTT 74.5 H* (21.0-31.0) Seconds BUN (7-18) mg/dl Creatinine (0.6-1.4) mg/dl BUN/Creatinine Ratio (10-20) Glucose (70-99) mg/dl POC Glucose (70-99) mg/dl Magnesium (1.8-2.4) mg/dl Total Bilirubin (0.2-1) mg/dl AST (15-37) U/L ALT (12-78) Alkaline Phosphatase (45-117) U/L Total Protein (6.4-8.2) gm/dl Albumin (3.4-5.0) gm/dl Albumin/Globulin Ratio (0.9-2) Diagnostic Findings US gallbladder CLINICAL HISTORY: Elevated bilirubin, abdominal pain COMPARISON STUDY: CT of the abdomen and pelvis March 15, 2013. FINDINGS: Exam is compromised by suboptimal penetration. No hepatic lesions are identified. There is no biliary ductal dilatation. The common bile duct measures 5 mm in caliber. The gallbladder is distended. Stones and sludge within the gallbladder are noted. There is no gallbladder wall thickening. Sonographic Larry sign could not be assessed for in this patient. There is no pericholecystic fluid. No right hydronephrosis is present. There is a possible 2.1 cm solid lesion within the midpole the right kidney. IMPRESSION: 1. Cholelithiasis and gallbladder distention. The findings are equivocal for acute cholecystitis. A hepatobiliary scan could be obtained as indicated. 2. No biliary ductal dilatation. 3. Possible 2.1 cm solid right renal lesion. Nonemergent renal protocol CT is recommended for further evaluation (1) Chest pain Chest pain type: unspecified Qualified Code(s): R07.9 - Chest pain, unspecified
--- NOTE | 2021-02-08 10:53 | Gastroenterology Progress Note ---
Date of Service February 08, 2021 Assessment & Plan (1) Cholangitis: Plan: See below (2) Cholelithiases: Plan: See below Plan: Clinically improved after ERCP. LFTs improving. Continue antibiotics x 7 days total (on day #3 of Zosyn). No Plavix until 02/10/21 (hold x 3 days). May use ASA in the interim. Continue to hold coumadin pending cholecystectomy and restart per surgery recommendations. Plan for OP EGD in 6 wks for removal of CBD stent. Our office will contact the pt to arrange. Keep NPO today pending surgery instructions but if no surgery today, OK from a GI perspective to have clear liquids today. Diet going forward per surgery. GI will watch peripherally. Please notify us of new/worsening GI issues. Admission and Anticipated Discharge Date Admission Date: February 06, 2021 Supervising Physician Co-Signing Physician Notes Attg add: Pt with dark stool today but stable hgb on Heparin + ASA. No other complaints. Falling LFTs. Follow Hgb, await martinez. Subjective 75, male, hx CAD/CHF, A-fib, distant DVT, maintained on Coumadin, Plavix (both held). ERCP 02/06 for tx of choledocholithiasis/cholangitis w sphincterotomy and sweeping of the bile duct with balloon. LFTs much improved. INR today1.3. WQBC 18, T T Bili 9.2 yesterday -> 4.7 today. Pt reports pain free, "feels fine," though admits to feeling tired, a bit "weak." Review of Systems Review of Systems: ROS: Since arrival: Gen: Denies weakness, fevers, weight loss Eyes: + icterus; No eye redness, or pain, no recent vision changes Resp: No SOB, no cough Cardio: No palpitations/irregular beats, no chest pain GI: No abdominal pain, no nausea/vomiting : + continues with dark urine; Denies pain on urination Skin: + jaundice; No itching or new rashes A total of 12 systems were reviewed, all others (-). Physical Exam Constitutional: well developed and cooperative Eyes: PERRL, conjunctivae normal, anicteric sclerae Respiratory: normal respiratory effort, lungs clear to auscultation normal respiratory effort and able to speak in complete sentences; no respiratory distress, no labored breathing, does not use accessory muscles and no cough Cardiovascular: Rate/Rhythm: regular rate and regular rhythm 1+ lower leg edema, equal bilat Gastrointestinal (Abdomen): Inspection/Auscultation: abdomen normal to inspection and normal bowel sounds; abdomen not distended and no abdominal edema Percussion/Palpation: + abdomen tender (minimally, epigastric and RUQ); no guarding, abdomen not rigid and no hepatosplenomegaly Skin: no rashes, warm and dry (though dull light red skin lower legs - chronic appearing) normal turgor Neurologic: PERRL, EOMI, accommodation nl, no face palsy, no dysarthria awake; not confused Psychiatric: A+Ox3, euthymic affect Orientation: alert, oriented x 3 and cooperative Results & Data ([facility]) Vital Signs (Past 12 Hours) Vital Signs Temp Pulse Pulse Resp BP BP Pulse Ox 02/08/21 07:52 36.4 C L 92 H 16 124/82 92 02/08/21 03:33 60 16 92 02/08/21 03:00 36.3 C L 64 16 128/73 94 02/08/21 00:56 89 02/07/21 23:41 36.4 C L 80 18 152/98 H 96 Laboratory Results WBC 18.7, Hb 12.1, Hct 38, Plts 237, PT 12.5, INR 1.3, PTT 81, Na 138, K 3.9, Cl 105, CO2 27, BUN 44, Cr 1.89, glucose 146.
[2021-02-08 11:16] LABS: INR 1.2 (0.9-1.1); Prothrombin Time 12.1 Seconds (9.0-12.0)
--- NOTE | 2021-02-08 11:19 | Electrocardiogram Report ---
Test Reason : Blood Pressure : / mmHG Vent. Rate : 061 BPM Atrial Rate : 063 BPM P-R Int : 000 ms QRS Dur : 188 ms QT Int : 498 ms P-R-T Axes : 000 -60 083 degrees QTc Int : 501 ms Poor data quality, interpretation may be adversely affected Ventricular-paced rhythm Abnormal ECG When compared with ECG of 07-FEB-2021 06:28, Vent. rate has decreased BY 4 BPM Confirmed by Pablo Dalal ([id number]) on 02/08/2021 11:19:07 AM Referred By: REFERRED SELF Confirmed By:Kevin Dalal
[2021-02-08] MEDS: ISOSORBIDE DINITRATE 10 MG TAB PO SCH (11:58)
[2021-02-08] MEDS: METOPROLOL SUCC 50MG EXT REL TAB PO SCH (11:58)
[2021-02-08] MEDS: ASPIRIN 81 MG ECTAB PO SCH (11:58)
[2021-02-08] MEDS: INSULIN ASPART PER UNIT SC SCH ×4 (12:27→23:09)
--- NOTE | 2021-02-08 14:07 | Hospitalist Progress Note ---
Date of Service February 08, 2021 Assessment & Plan (1) Cholangitis: Plan: Secondary to choledocholithiasis status post ERCP with stent placement. He is clinically improved with improving leukocytosis. T bili has improved to 4.7. Continue Zosyn and continue to trend LFTs daily. Plan for lap martinez in am (2) Elevated LFTs: Plan: Secondary to #1, improving, plan as above. (3) Atrial fibrillation with controlled ventricular rate: Plan: h/o afib, rhythm currently sinus/paced s/p 3AV block. Rate is 60 and he is v- paced. Coumadin on hold and INR <2 so will bridge with heparin. Cont current therapy. (4) BREANNA (acute kidney injury): Plan: baseline creat 1.4-1.7. Continues to improve and he is 1.9 today. Cont to stay hydrated. Metolazone/torsemide on hold. (5) PVD (peripheral vascular disease): Plan: Continue aspirin, Plavix on hold per GI team until 02/10. Cardiology following and is okay with this. (6) CAD (coronary artery disease): Plan: chronic, stable. Cont current medical therapy as above. (7) DMII (diabetes mellitus, type 2): Plan: diet controlled DMII, A1C 6.9 reflecting good control. Cont bolus insulin PRN as needed for correction factor. Hold off on carb coverage or lantus at this time. Glucose is at goal. (8) DVT prophylaxis: Plan: heparin Full Code Dispo-to home after upcoming lap martinez Yvette Flores DO [facility] Hospitalist Admission and Anticipated Discharge Date Admission Date: February 06, 2021 Subjective 75-year-old man presented to the ER with chest pain shortness of breath and abdominal pain. Work-up revealed acute cholangitis secondary to gallstones. He is status post ERCP on 02/06 with stent placement in common bile duct. Denies abdominal pain, nausea Denies chest pain, shortness of breath Oxygenating at baseline Normal BM, normal urination reported Tolerating p.o., afebrile Allowed to eat by surgery who plans on lap martinez in a.m. Review of Systems Review of Systems: All systems were reviewed and negative except as indicated above. Physical Exam Physical Exam: CONSTITUTIONAL: WNWD, vitals as above, generally well- appearing, NAD EYES: normal conjunctivae, no scleral icterus ENT: external ear and nose normal, MMM NECK: trachea midline RESPIRATORY: clear to auscultation bilaterally, no crackles, rales or wheezes, normal respiratory effort CARDIOVASCULAR: regular rate and rhythm, S1 and 2 heard without murmurs, gallops or rubs, no JVD, no peripheral edema GASTROINTESTINAL: soft, nontender, ND, no guarding MUSCULOSKELETAL: strength 5/5 throughout, head is normocephalic and atraumatic, neck supple SKIN: warm and dry, +jaundice NEUROLOGIC: CN 2-12 grossly intact, no sensory deficit, normal cognition, normal speech, no tremor, no gross focal deficits. PSYCHIATRIC: alert cooperative and oriented to person, place and time. Results & Data Results & Data ([facility]) Vital Signs (Past 12 Hours) Vital Signs Temp Pulse Pulse Resp BP BP Pulse Ox 02/08/21 11:44 36.5 C 60 16 124/79 94 02/08/21 07:52 36.4 C L 92 H 16 124/82 92 02/08/21 03:33 60 16 92 02/08/21 03:00 36.3 C L 64 16 128/73 94 Laboratory Results Short CBC 02/07/21 02/08/21 02/08/21 Range/Units 14:27 05:40 13:10 WBC 19.58 H 18.77 H (4.8-10.8) K/uL Hgb 11.8 L 12.1 L 11.5 L (14.0-18.0) g/dL Hct 37.3 L 38.3 L (42-52) % Plt Count 231 237 (130-400) K/uL [facility] 02/08/21 05:40 Sodium 138 Potassium 3.9 Chloride 105 Carbon Dioxide 27 BUN 44 H Creatinine 1.89 H Glucose 146 H Calcium 9.1 Liver Function 02/08/21 Range/Units 05:40 Total Bilirubin 4.7 H (0.2-1) mg/dl AST 87 H (15-37) U/L ALT 101 H (12-78) Alkaline Phosphatase 198 H (45-117) U/L Albumin 2.2 L (3.4-5.0) gm/dl Medications Administered Current Inpatient Medications Acetaminophen (Acetaminophen 325 Mg Tab) 650 mg PO Q4H PRN PRN Reason: Pain or Fever Stop: 03/08/21 05:17 Aspirin (Aspirin 81 Mg Ectab) 81 mg PO [facility] Stop: 03/09/21 08:59 Last Admin: 02/08/21 11:58 Dose: 81 mg Documented by: Atorvastatin Calcium (Atorvastatin 40 Mg Tab) 80 mg PO QPM [facility] Stop: 03/08/21 20:59 Last Admin: 02/07/21 21:46 Dose: 80 mg Documented by: Clopidogrel Bisulfate (Clopidogrel Bisulfate 75 Mg Tab) 75 mg PO [facility] Stop: 03/08/21 08:59 Last Admin: 02/06/21 09:24 Dose: Not Given Documented by: Piperacillin Sod/Tazobactam (Sod 4.5 gm/ Dextrose) 120 mls @ 30 mls/hr IV Q8H [facility]; Protocol Stop: 02/16/21 03:17 Last Admin: 02/08/21 11:59 Dose: 30 mls/hr Documented by: Heparin Sodium/Dextrose (Heparin Sodium/Dextrose) 25,000 units in 500 mls @ 28 mls/hr IV .[id number] [facility]; Protocol Stop: 02/09/21 00:05 Last Admin: 02/08/21 08:50 Dose: 1,400 units/hr, 28 mls/hr Documented by: Insulin Aspart (Insulin Aspart Per Unit) 0 units SC [facility] Stop: 03/09/21 16:29 Last Admin: 02/08/21 12:28 Dose: 8 units Documented by: Isosorbide Dinitrate (Isosorbide Dinitrate 10 Mg Tab) 30 mg PO [facility] Stop: 03/08/21 08:59 Last Admin: 02/08/21 11:58 Dose: 30 mg Documented by: Levothyroxine Sodium (Levothyroxine Sodium 75 Mcg Tablet) [facility] Stop: 03/08/21 06:29 Last Admin: 02/08/21 05:51 Dose: 75 mcg Documented by: Metoprolol Succinate (Metoprolol Succ 50mg Ext Rel Tab) 100 mg PO [facility] Stop: 03/08/21 08:59 Last Admin: 02/08/21 11:58 Dose: 100 mg Documented by: Miscellaneous (Heparin- Stop Order) 1 ea N/A 0005 ONE Stop: 02/09/21 00:06 Miscellaneous Information (Piperacill/Tazobac Consult Active) 1 ea N/A UD PRN PRN Reason: Consult Stop: 03/08/21 03:17 Multivitamins/Minerals (Calcium 600mg + Vit D 400 Iu Tab) 1 tab PO QAM [facility] Stop: 03/08/21 08:59 Last Admin: 02/08/21 08:52 Dose: 1 tab Documented by: Multivitamins/Minerals (Cerovite Adv Formula Tab) 1 tab PO QAM [facility] Stop: 03/08/21 08:59 Last Admin: 02/08/21 08:52 Dose: 1 tab Documented by: Nitroglycerin (Nitroglycerin Sl 0.4 Mg/Tab Tab) 0.4 mg SL UD PRN PRN Reason: Chest Pain Stop: 03/08/21 05:17 Ondansetron HCl (Ondansetron Inj 2 Mg/Ml 2 Ml Vial) 4 mg IV Q6H PRN PRN Reason: Nausea Stop: 03/08/21 05:17 Vitamin D (Cholecalciferol 5,000 Units 125 Mcg Tab) 5,000 [facility] Stop: 03/08/21 08:59 Last Admin: 02/08/21 08:52 Dose: 5,000 units Documented by:
[2021-02-08 16:37] LABS: Partial Thromboplastin Ratio 2.8
[2021-02-08 16:45] LABS: Partial Thromboplastin Time 73.3 Seconds (21.0-31.0)
[2021-02-08] MEDS: ATORVASTATIN 40 MG TAB PO SCH (21:19)
[2021-02-09] MEDS ORDERED: HEPARIN- STOP ORDER ONE (00:05)
[2021-02-09] MEDS: PIPERACILLIN/TAZOBACTAM 4.5 GM in DEXTROSE 5% 100 ML IV SCH ×3 (01:35→17:20)
[2021-02-09 05:01] LABS: Hematocrit (blood only) 36.8 % (42-52); Hemoglobin 11.5 g/dL (14.0-18.0); Mean Corpuscular Hemoglobin 31.3 pg (25-34); Mean Corpuscular Hgb Conc 31.3 g/dL (32-36); Mean Platelet Volume 10.8 fL (7.4-10.4); Platelet Count 209 K/uL (130-400); RDW Coefficient of Variation 16.8 % (11.5-14.5); RDW Standard Deviation 61.7 fL (36.4-46.3); Red Blood Count 3.68 M/uL (4.7-6.1); White Blood Count 12.56 K/uL (4.8-10.8)
[2021-02-09 05:11] LABS: INR 1.2 (0.9-1.1); Partial Thromboplastin Time 27.3 Seconds (21.0-31.0); Prothrombin Time 11.7 Seconds (9.0-12.0)
[2021-02-09 05:25] LABS: Albumin Level 2.2 gm/dl (3.4-5.0); BUN Creatinine Ratio 27.7 (10-20); Calcium 8.9 mg/dl (8.5-10.1); Creatinine Clr Calc Pharmacy 42.7 ml/min; Est GFR (African American) 41.7 ml/min; Potassium 3.9 mmol/L (3.5-5.1)
[2021-02-09 05:34] LABS: Albumin Globulin Ratio 0.6 (0.9-2); Bilirubin,Total 3.4 mg/dl (0.2-1); Globulin 3.8 gm/dl (2.5-4.0)
[2021-02-09] MEDS ORDERED: fentaNYL citrate 100 MCG/2 ML VIAL ONE (06:33)
[2021-02-09] MEDS: INSULIN ASPART PER UNIT SC SCH ×4 (07:02→21:01)
[2021-02-09] MEDS ORDERED: NEOSTIGMINE METHYLSULFATE 1 MG/ML 10ML VIAL ONE (07:03)
[2021-02-09] MEDS ORDERED: ONDANSETRON INJ 2 MG/ML 2 ML VIAL ONE (07:03)
[2021-02-09] MEDS ORDERED: ROCURONIUM BROMIDE 10 MG/ML 5 ML VIAL IV ONE (07:03)
[2021-02-09] MEDS ORDERED: GLYCOPYRROLATE 0.2 MG/ML VIAL ONE (07:03)
[2021-02-09] MEDS ORDERED: PROPOFOL IV EMULSION 10 MG/ML 20 ML VIAL IV ONE (07:03)
[2021-02-09] MEDS ORDERED: DEXAMETHASONE SOD INJ 4 MG/ML VIAL ONE (07:03)
[2021-02-09] MEDS ORDERED: LIDOCAINE 2% 2 ML VIAL/AMP(20MG/ML) INFIL ONE (07:03)
[2021-02-09] MEDS ORDERED: LIDOCAINE 1% LOCAL 20 ML VIAL ONE (07:05)
[2021-02-09] MEDS ORDERED: BUPIVACAINE 0.5 % 5 MG/1 ML MPF 30ML VIAL ONE (07:05)
[2021-02-09] MEDS ORDERED: BACITRACIN OINT 15 GM TUBE ONE (07:05)
[2021-02-09] MEDS ORDERED: ceFAZolin 2000MG 2,000 MG/15 ML SYR IV ONE (07:23)
--- NOTE | 2021-02-09 07:23 | History & Physical Bridge Note ---
Date of Service February 09, 2021 History & Physical Bridge Note I have examined the patient, reviewed the History & Physical and in the interval since the performance of the History & Physical I have noted the following changes of clinical significance: no changes noted Supervising Physician Co-Signing Physician Notes Attg add: Pt with dark stool today but stable hgb on Heparin + ASA. No other complaints. Falling LFTs. Follow Hgb, await martinez.
[2021-02-09] MEDS ORDERED: ceFAZolin 2,000 MG/15 ML IV PUSH IV ONE (07:27)
--- NOTE | 2021-02-09 07:29 | Anesthesiology Consultation ---
Date of Service February 09, 2021 Assessment & Plan Chart Review Chart Review: Acceptable Risk for Surgery and Patient NOT seen in Pre Admission Testing Consults Requested none ASA ASA4 Proposed Anesthesia Anesthesia Type: General Risk / Benefits Reviewed With: PT / POA / Parent / Guardian, Accepts Plan and Informed Consent Obtained Additional Comments: covid test negative History Surgery Operation Date: 02/06/21 09:40 Proposed Procedures p Endoscopic Retrograde Cholangiopancreatogram - Karan James MD Operation Date: 02/09/21 07:30 Proposed Procedures p Laparoscopic Cholecystectomy - Crai Bruno MD Height/Weight Height: 5 ft 8 in Weight: 112.4 kg Allergies Allergy/AdvReac Type Severity Reaction Status Date / Time Sulfa (Sulfonamide AdvReac Mild STOMACH Verified 02/06/21 14:15 Antibiotics) CRAMPS Medications Home Medications Medication Instructions Recorded Confirmed Last Taken atorvastatin 80 mg tablet 80 mg PO QPM 03/04/19 02/05/21 02/04/21 clopidogrel 75 mg tablet 75 mg PO QAM 03/04/19 02/05/21 02/05/21 isosorbide dinitrate 30 mg tablet 30 mg PO QAM tab 03/04/19 02/05/21 02/05/21 metolazone 2.5 mg tablet 2.5 mg PO UD 03/04/19 02/05/21 02/05/21 metoprolol succinate 100 mg 100 mg PO QAM 03/04/19 02/05/21 02/05/21 capsule sprinkle, ext. release 24 hr potassium chloride 20 mEq oral 60 meq PO BID 03/04/19 02/05/21 02/05/21 packet torsemide 10 mg tablet 20 mg PO QAM 03/04/19 02/05/21 02/05/21 warfarin 5 mg tablet (Jantoven) 2.5 - 5 mg PO QPM 03/04/19 02/05/21 02/04/21 calcium carbonate 500 mg-vitamin 1 tab PO QAM 07/09/19 02/05/21 02/05/21 D3 5 mcg (200 unit) tablet (Calcium 500 + D) cholecalciferol (vitamin D3) 125 125 mcg PO 5XWK 07/09/19 02/05/21 02/05/21 mcg (5,000 unit) tablet (Vitamin D3) [id number] 1 tab PO QAM 07/09/19 02/05/21 02/05/21 tablet (Multivitamin 50 Plus) levothyroxine 75 mcg tablet 75 mcg PO DAILY 02/05/21 02/05/21 Unknown Active Medications Generic Name Dose Route Start Last Admin Trade Name Abby PRN Reason Stop Dose Admin Aspirin 81 mg 02/07/21 09:00 02/08/21 11:58 Aspirin 81 Mg Ectab PO 03/09/21 08:59 81 mg QAM PANDA Administration Atorvastatin Calcium 80 mg 02/06/21 21:00 02/08/21 21:19 Atorvastatin 40 Mg Tab PO 03/08/21 20:59 80 mg QPM PANDA Administration Clopidogrel Bisulfate 75 mg 02/06/21 09:00 02/06/21 09:24 Clopidogrel Bisulfate 75 Mg Tab PO 03/08/21 08:59 Not Given QAM PANDA Piperacillin Sod/Tazobactam 120 mls @ 30 mls/hr 02/06/21 03:18 02/09/21 05:51 Sod 4.5 gm/ Dextrose IV 02/16/21 03:17 Infused Q8H [facility] Infusion Protocol Insulin Aspart 0 units 02/07/21 16:30 02/09/21 07:02 Insulin Aspart Per Unit SC 03/09/21 16:29 Not Given [facility] Isosorbide Dinitrate 30 mg 02/06/21 09:00 02/08/21 11:58 Isosorbide Dinitrate 10 Mg Tab PO 03/08/21 08:59 30 mg QAM PANDA Administration Levothyroxine Sodium 75 mcg 02/06/21 06:30 02/08/21 05:51 Levothyroxine Sodium 75 Mcg Tablet PO 03/08/21 06:29 75 mcg DAILYBB PANDA Administration Metoprolol Succinate 100 mg 02/06/21 09:00 02/08/21 11:58 Metoprolol Succ 50mg Ext Rel Tab PO 03/08/21 08:59 100 mg QAM PANDA Administration Multivitamins/Minerals 1 tab 02/06/21 09:00 02/08/21 08:52 Calcium 600mg + Vit D 400 Iu Tab PO 03/08/21 08:59 1 tab QAM PANDA Administration Multivitamins/Minerals 1 tab 02/06/21 09:00 02/08/21 08:52 Cerovite Adv Formula Tab PO 03/08/21 08:59 1 tab QAM PANDA Administration Vitamin D 5,000 units 02/06/21 09:00 02/08/21 08:52 Cholecalciferol 5,000 Units 125 Mcg Tab PO 03/08/21 08:59 5,000 units MoTuWeThFr PANDA Administration NPO Date Last Intake of Fluids: 02/08/21 Time Last Intake of Fluids: 19:00 Last Intake of Fluids Comment: Sip water Date Last Intake of Solids: 02/08/21 Time Last Intake of Solids: 19:00 Past Medical History Medical History Arthritis Atrial fibrillation on warfarin; follows with Dr. 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- now on 2-3L O2 daily DVT (deep venous thrombosis) 1997; unk etiology Gout Hypothyroidism no meds Myocardial Infarction 1999 Pacemaker Medtronic implanted 2011, last check 02/2020 Skin cancer SCC Sleep apnea BIPAP + 2.5-3 L O2 HS Exercise / Class Metabolic Activity III < 4 Walking/Shop/Light housework Past Family History Family History Son Family history of diabetes mellitus Past Surgical History Surgical History History of cardiac cath [facility] 1999 History of cardiac cath 2002 1 STENT [facility] History of cataract surgery left History of coronary artery bypass graft 2 VESSELS [facility] 1999 History of permanent cardiac pacemaker placement 2012 History of reverse total replacement of right shoulder joint (~07/2019) S/P vascular surgery RIGHT FEM-POP BYPASS GRAFT Past Anesthesia History No Hx of Anesthesia Complications and No Family Hx of Anesthesia Complications History of PONV No Hx of PONV and No Hx of Motion Sickness Social History Smoking Status: Former smoker tobacco type: cigarettes and smokeless tobacco Hx Alcohol Use: No Hx Substance Use: No substance use type: does not use Physical Exam Vital Signs Last Vital Signs Temp 36.5 C 02/09/21 06:11 Pulse 72 02/09/21 06:11 Resp 20 02/09/21 06:11 BP 129/82 02/09/21 06:11 Pulse Ox 91 02/09/21 06:11 Constitutional + morbidly obese ENMT Mouth: no dentition abnormality Thyromental Distance: > or= 3.5 Finger Breadths Mallampati Class: II Neck normal visual inspection and trachea midline; neck extension not limited Respiratory normal respiratory effort Auscultation: + diminished lung sounds Cardiovascular Rate/Rhythm: regular rate and regular rhythm Heart Sounds: no murmur Vessels: no carotid bruit Chest (Breasts) Chest: + pacemaker Musculoskeletal Spine: normal cervical ROM Neurologic moves all extremities Motor/Sensory: no sensory deficit Psychiatric Orientation: alert and oriented x 3 Testing Laboratory Results 02/09/21 04:48 02/09/21 04:48 PT 11.7 Seconds (9.0-12.0) 02/09/21 04:48 INR 1.2 (0.9-1.1) H 02/09/21 04:48 APTT 27.3 Seconds (21.0-31.0) 02/09/21 04:48 Hemoglobin A1c 6.9 % (4.5-5.6) H 02/06/21 06:09 Urine Color Dark Yellow 02/06/21 06:00 Urine Appearance Clear (Clear) 02/06/21 06:00 Urine pH 5.5 (4.5-7.5) 02/06/21 06:00 Ur Specific [place] 1.043 (1.000-1.030) H 02/06/21 06:00 Urine Protein Trace (Negative) H 02/06/21 06:00 Urine Glucose (UA) Negative (Negative) 02/06/21 06:00 Urine Ketones Negative (Negative) 02/06/21 06:00 Urine Nitrite Negative (Negative) 02/06/21 06:00 Ur Leukocyte Esterase Negative (Negative) 02/06/21 06:00 Urine WBC (Auto) 1-5 /hpf (0-5) 02/06/21 06:00 Urine RBC (Auto) 0-4 /hpf (0-4) 02/06/21 06:00 U Hyaline Cast (Auto) 1-5 /lpf (0-5) 02/06/21 06:00 U Epithel Cells (Auto) 20-30 /lpf (0-5) H 02/06/21 06:00 Urine Bacteria (Auto) Negative (Negative) 02/06/21 06:00 02/06/21 06:00 Urine Culture - Final Urine,Clean Catch No growth - less than 1,000 colonies/mL. 02/09/21 02/08/21 06:24 20:29 POC Glucose 117 H 121 H
[2021-02-09] MEDS ORDERED: LABETALOL HCL IV 5 MG/ML 20ML IV PRN (07:30)
[2021-02-09] MEDS ORDERED: NALOXONE HCL 0.4 MG/1 ML VIAL/CARP IV PRN (07:30)
[2021-02-09] MEDS ORDERED: PROMETHAZINE HCL 12.5 MG in SODIUM CHLORIDE 0.9% 50 ML IV PRN (07:30)
[2021-02-09] MEDS ORDERED: ATROPINE SULFATE 0.1 MG/ML 10ML SYR IV PRN (07:30)
[2021-02-09] MEDS ORDERED: ONDANSETRON INJ 2 MG/ML 2 ML VIAL IV PRN (07:30)
[2021-02-09] MEDS ORDERED: FLUMAZENIL 0.1 MG/1 ML 10 ML VIAL IV PRN (07:30)
[2021-02-09] MEDS ORDERED: ePHEDrine sulfate 50 MG/ML AMP IV PRN (07:30)
[2021-02-09] MEDS ORDERED: SUCCINYLCHOLINE 100MG/5ML SYR IV ONE (07:58)
[2021-02-09] MEDS ORDERED: SUGAMMADEX SODIUM 200 MG/2 ML VIAL IV ONE (08:14)
--- NOTE | 2021-02-09 10:30 | Post Operative Brief Note ---
Immediate Post Op Note v1 Date of Surgery February 09, 2021 Pre & Post Diagnosis Operation Date: 02/06/21 09:40 Pre-Op Diagnosis: cholangitis Post-Op Diagnosis: cholangitis Operation Date: 02/09/21 07:30 Pre-Op Diagnosis: acute cholecystitis, Cholelithiasis Post-Op Diagnosis: acute cholecystitis, Cholelithiasis, severe cirrhosis of the liver I identified the patient and participated in the time-out.: Yes Procedure Operation Date: 02/06/21 09:40 Actual Procedures p Esophagogastroduodenoscopy - Karan James MD s Endoscopic Ultrasonography Upper - Karan James MD p Endoscopic Retrograde Cholangiopancreato - Karan James MD Operation Date: 02/09/21 07:30 Actual Procedures p Laparoscopic Cholecystectomy(Not Applicable) - Cari Bruno MD Surgeon Cari Bruno MD School Services Officer remote broadcast technician Estimated Blood Loss 100 Findings Consistent with Post-Op Diagnosis significant inflammation on gallbladder wall, severe cirrhosis of the liver Fluids 1000ml Specimens gallbladder Anesthesia Type General Complications none Disposition Accompanied Patient To Recovery: Yes
[2021-02-09] MEDS: fentaNYL citrate 100 MCG/2 ML VIAL IV PRN ×4 (10:41→11:08)
--- NOTE | 2021-02-09 11:24 | Anesthesiology Progress Note ---
Date of Service February 09, 2021 Anesthesia Post Procedure Vital Signs Vital Signs: Temp Pulse Pulse Pulse Resp BP BP 02/09/21 11:15 63 16 120/64 02/09/21 11:05 63 16 116/65 02/09/21 10:55 62 16 109/70 02/09/21 10:45 62 16 116/71 02/09/21 10:35 36.2 C L 64 18 120/67 02/09/21 06:11 36.5 C 72 20 129/82 02/09/21 03:11 36.3 C L 62 16 112/55 L 02/09/21 02:02 14 02/08/21 23:30 62 02/08/21 23:00 20 02/08/21 22:41 36.8 C 73 18 123/80 02/08/21 19:41 36.5 C 81 18 124/79 02/08/21 15:16 36.7 C 65 20 104/64 02/08/21 11:44 36.5 C 60 16 124/79 Pulse Ox 02/09/21 11:15 92 02/09/21 11:05 92 02/09/21 10:55 94 02/09/21 10:45 97 02/09/21 10:35 96 02/09/21 06:11 91 02/09/21 03:11 96 02/09/21 02:02 92 02/08/21 23:30 02/08/21 23:00 92 02/08/21 22:41 95 02/08/21 19:41 92 02/08/21 15:16 96 02/08/21 11:44 94 Pain Intensity Left Chest: Pain Intensity: 3 Right Shoulder: Pain Intensity: 5 Abdomen: Pain Intensity: 4 Transfer of Care Handoff Completed per policy Notes Mental Status: alert / awake / arousable Patient Amnestic to Procedure: Yes Nausea / Vomiting: adequately controlled Pain: adequately controlled Airway Patency, RR, SpO2: stable & adequate BP & HR: stable & adequate Hydration State: stable & adequate Anesthetic Complications: no major complications apparent
[2021-02-09] MEDS: HYDROmorphone INJ 1 MG/ML SYRINGE IV PRN (11:41)
[2021-02-09] MEDS: CHOLECALCIFEROL 5,000 UNITS 125 MCG TAB PO SCH (11:47)
[2021-02-09] MEDS: CALCIUM 600MG + VIT D 400 IU TAB PO SCH (11:47)
[2021-02-09] MEDS: ISOSORBIDE DINITRATE 10 MG TAB PO SCH (11:47)
[2021-02-09] MEDS: LEVOTHYROXINE SODIUM 75 MCG TABLET PO SCH (11:47)
[2021-02-09] MEDS: CEROVITE ADV FORMULA TAB PO SCH (11:47)
[2021-02-09] MEDS: METOPROLOL SUCC 50MG EXT REL TAB PO SCH (11:47)
--- NOTE | 2021-02-09 11:51 | Operative Report (OR) ---
DATE OF PROCEDURE: 02/09/2021 PREOPERATIVE DIAGNOSES: Acute cholecystitis, cholelithiasis. POSTOPERATIVE DIAGNOSES: Acute cholecystitis, cholelithiasis, severe cirrhosis. OPERATIVE PROCEDURE: Laparoscopic cholecystectomy. SURGEON: Cari Bruno MD. ANESTHESIA: General. ESTIMATED BLOOD LOSS: About 100 mL. FINDINGS: Significant inflammation on the gallbladder wall, gallbladder wall thickening and edema with severe cirrhosis of the liver. COMPLICATIONS: None. INDICATIONS FOR THE PROCEDURE: This is a 75-year-old gentleman who was admitted to the hospital for severe acute cholecystitis with abnormal liver function. The patient had an ERCP done a couple of days ago and now the patient had an ultrasound diagnosis of gallstone with acute cholecystitis. I recommended to do laparoscopic cholecystectomy, possible open, possible cholangiogram. I did talk to the patient about the benefit, risk, alternate procedure. I indicated the risks may include, but not limited to, such as bleeding, infection, abscess, sepsis, multiple organ failure, injury to other organs, myocardial infarction, DVT, stroke, even . The patient understands and he signed informed consent and I answered all questions. DETAILS OF PROCEDURE: After we identified the patient and verified the procedure, we brought the patient to the OR, put the patient in the supine position on the OR table. The patient received SCD on bilateral legs to prevent DVT. Also, patient received 2 grams of Ancef IV for prophylactic antibiotic. The patient received general anesthesia without difficulty. The abdomen was prepped and draped in a routine sterile fashion. After timeout, I injected the local anesthesia by using 1% lidocaine mixed with 0.5% Marcaine just above the umbilicus, then I made a small incision just above the umbilicus, opened fascia, opened peritoneum. Under direct vision, put a Ligia trocar in, connected to CO2 to create pneumoperitoneum, flow rate at 6 liters per minute, pressure not more than 14 mmHg. Once we got a nice pneumoperitoneum, we put the camera in, looked around the abdomen, it shows the patient has significant severe cirrhosis of the liver and the gallbladder showed significant inflammation, gallbladder wall thickening, edema, distention, confirming the diagnosis of acute cholecystitis. Once we confirmed the diagnosis, I put another two 5 mm trocars on the right upper quadrant, one 12 trocar on the epigastric area. Once all trocars in, we used a grasper to hold the base of gallbladder, put in the direction to the diaphragm, another grasper to hold the pouch of gallbladder, put the lateral to explore the triangle of Calot. The cystic duct was identified and mobilized. Then, I put two 10 mm metal clips on the proximal cystic duct and one on the distal cystic duct. I used a scissor for transection of cystic duct; I rechecked, no active bleeding. The cystic artery was identified and mobilized. I put two 10 mm metal clips on the proximal cystic artery and one on the distal cystic artery, then used a scissor for transection of cystic artery. Then, we used the Bovie to take down gallbladder; however, during the take down of gallbladder, the patient had significant bleeding from the liver bed because the patient had severe cirrhosis of the liver and we controlled the bleeding using Bovie and 10 mm metal clips; however, because of the significant potential bleeding, we did leave about 2 X2 cm of posterior wall of the gallbladder wall at the bed site to prevent any potential bleeding if we do too deeper dissection and once completed, I removed the whole gallbladder and rechecked the liver bed. There is no active bleeding; however, we used 1 Surgicel to put on the liver bed to prevent any potential bleeding. Again, we rechecked, no active bleeding from the liver bed and no bile leak from the liver bed at this moment, we removed the gallbladder through the catch bag. Then, we reinserted the Ligia trocar in, connected to CO2 to create pneumoperitoneum, again looked around the abdomen, no active bleeding, no bile leak from the liver bed and we left one small piece of gallbladder wall on the posterior wall and we used Bovie to Bovie the gallbladder mucosal site. Rechecked, no active bleeding. Then, at this moment, we removed all trocars under direct vision. No active bleeding from the trocar site. The pneumoperitoneum was released, then I closed the umbilical incision fascial layer by using 0 Vicryl [id number] x2, closed subcutaneous layer by using 2-0 Vicryl interruptedly, closed skin by using 4-0 Vicryl continuous running, closed the epigastric incision, the fascial layer by using 0 Vicryl [id number] x2, closed subcutaneous layer by using 2-0 Vicryl interruptedly, closed skin by using 4-0 Vicryl interruptedly, closed another two 5 mm trocar site of skin only by using 4-0 Vicryl. Then, we put the dressing on. The patient tolerated the procedure well. All instrument, needle and sponge counts were correct x2 at the end of the case. The patient was transferred to recovery room in stable condition. The specimen was sent to pathology. After the procedure, I did talk to the patient and the patient's about the OR finding and the procedure we did. Also, I gave the patient postop care instruction, patient understands. Job ID: [id number] [facility]
[2021-02-09] MEDS: ASPIRIN 81 MG ECTAB PO SCH (11:53)
[2021-02-09] MEDS: TORSEMIDE 10 MG TAB PO SCH (12:15)
--- NOTE | 2021-02-09 12:15 | Hospitalist Progress Note ---
Date of Service February 09, 2021 Assessment & Plan (1) Cholangitis: Plan: Secondary to choledocholithiasis status post ERCP with stent placement. He is clinically improved with improving leukocytosis. T bili continues to improve, today is 3.4. Continue Zosyn and continue to trend LFTs daily. Lap martinez performed this am, cont recovery. Restart coumadin and consider heparin bridge while admitted when ok with surgeon. (2) Elevated LFTs: Plan: Secondary to #1, improving, plan as above. (3) Atrial fibrillation with controlled ventricular rate: Plan: h/o afib, rhythm currently sinus/paced s/p 3AV block. Rate is 60 and he is v- paced. Coumadin held preoperatively and used heparin as a bridge. Restart both when ok with surgery. (4) BREANNA (acute kidney injury): Plan: baseline creat 1.4-1.7. He is now at his baseline kidney function. Cont to stay hydrated. Metolazone/torsemide on hold. (5) PVD (peripheral vascular disease): Plan: Continue aspirin, Plavix on hold per GI team until 02/10. Cardiology following and is okay with this. (6) CAD (coronary artery disease): Plan: chronic, stable. Cont current medical therapy as above. (7) DMII (diabetes mellitus, type 2): Plan: diet controlled DMII, A1C 6.9 reflecting good control. Cont bolus insulin PRN as needed for correction factor. Hold off on carb coverage or lantus at this time. Glucose is at goal. (8) DVT prophylaxis: Plan: SCDs in acute perioperative setting. Restart when ok with surgery Full Code Dispo-to home after recovery from surgery. PT/OT pending. Yvette Flores DO [facility] and Anticipated Discharge Date Admission Date: February 06, 2021 Subjective 75-year-old man presented to the ER with chest pain shortness of breath and abdominal pain. Work-up revealed acute cholangitis secondary to gallstones. He is status post ERCP on 02/06 with stent placement in common bile duct. Underwent lap martinez today. doing well post operatively some soreness in RUQ area wounds are covered with dressings, some blood on dressings present. Denies abdominal pain, nausea Denies chest pain, shortness of breath Review of Systems Review of Systems: All systems were reviewed and negative except as indicated above. Physical Exam Physical Exam: CONSTITUTIONAL: WNWD, vitals as above, generally well- appearing, NAD EYES: normal conjunctivae, no scleral icterus ENT: external ear and nose normal, MMM NECK: trachea midline RESPIRATORY: clear to auscultation bilaterally, no crackles, rales or wheezes, normal respiratory effort CARDIOVASCULAR: regular rate and rhythm, S1 and 2 heard without murmurs, gallops or rubs, no JVD, no peripheral edema GASTROINTESTINAL: soft, nontender, ND, no guarding, multiple incision sites covered with dressings that are clean and dry aside from two which have 50% blood on them. MUSCULOSKELETAL: strength 5/5 throughout, head is normocephalic and atraumatic, neck supple SKIN: warm and dry, +jaundice NEUROLOGIC: CN 2-12 grossly intact, no sensory deficit, normal cognition, normal speech, no tremor, no gross focal deficits. PSYCHIATRIC: alert cooperative and oriented to person, place and time. Results & Data Results & Data ([facility]) Vital Signs (Past 12 Hours) Vital Signs Temp Pulse Pulse Pulse Resp BP BP 02/09/21 11:56 36.5 C 60 16 101/65 02/09/21 11:39 36.6 C 63 16 115/64 02/09/21 11:25 36.3 C L 63 17 114/72 02/09/21 11:15 63 16 120/64 02/09/21 11:05 63 16 116/65 02/09/21 10:55 62 16 109/70 02/09/21 10:45 62 16 116/71 02/09/21 10:35 36.2 C L 64 18 120/67 02/09/21 06:11 36.5 C 72 20 129/82 02/09/21 03:11 36.3 C L 62 16 112/55 L 02/09/21 02:02 14 Pulse Ox 02/09/21 11:56 92 02/09/21 11:39 93 02/09/21 11:25 93 02/09/21 11:15 92 02/09/21 11:05 92 02/09/21 10:55 94 02/09/21 10:45 97 02/09/21 10:35 96 02/09/21 06:11 91 02/09/21 03:11 96 02/09/21 02:02 92 Laboratory Results Short CBC 02/08/21 02/09/21 Range/Units 13:10 04:48 WBC 12.56 H (4.8-10.8) K/uL Hgb 11.5 L 11.5 L (14.0-18.0) g/dL Hct 36.8 L (42-52) % Plt Count 209 (130-400) K/uL BMP 02/09/21 04:48 Sodium 140 Potassium 3.9 Chloride 107 Carbon Dioxide 31 BUN 50 H Creatinine 1.79 H Glucose 121 H Calcium 8.9 Liver Function 02/09/21 Range/Units 04:48 Total Bilirubin 3.4 H (0.2-1) mg/dl AST 60 H (15-37) U/L ALT 82 H (12-78) Alkaline Phosphatase 184 H (45-117) U/L Albumin 2.2 L (3.4-5.0) gm/dl Medications Administered Current Inpatient Medications Acetaminophen (Acetaminophen 325 Mg Tab) 650 mg PO Q4H PRN PRN Reason: Pain or Fever Stop: 03/08/21 05:17 Aspirin (Aspirin 81 Mg Ectab) [facility] Stop: 03/09/21 08:59 Last Admin: 02/09/21 11:53 Dose: 81 mg Documented by: Atorvastatin Calcium (Atorvastatin 40 Mg Tab) 80 mg PO QPM [facility] Stop: 03/08/21 20:59 Last Admin: 02/08/21 21:19 Dose: 80 mg Documented by: Clopidogrel Bisulfate (Clopidogrel Bisulfate 75 Mg Tab) [facility] Stop: 03/08/21 08:59 Last Admin: 02/06/21 09:24 Dose: Not Given Documented by: Hydromorphone HCl (Hydromorphone Inj 1 Mg/Ml Syringe) 1 mg IV Q6H PRN PRN Reason: Pain Stop: 02/23/21 10:39 Last Admin: 02/09/21 11:41 Dose: 1 mg Documented by: Piperacillin Sod/Tazobactam (Sod 4.5 gm/ Dextrose) 120 mls @ 30 mls/hr IV Q8H [facility]; Protocol Stop: 02/16/21 03:17 Last Admin: 02/09/21 11:43 Dose: 30 mls/hr Documented by: Insulin Aspart (Insulin Aspart Per Unit) 0 units SC ACHS [facility] Stop: 03/09/21 16:29 Last Admin: 02/09/21 12:14 Dose: Not Given Documented by: Isosorbide Dinitrate (Isosorbide Dinitrate 10 Mg Tab) 30 mg PO QAM [facility] Stop: 03/08/21 08:59 Last Admin: 02/09/21 11:47 Dose: 30 mg Documented by: Levothyroxine Sodium (Levothyroxine Sodium 75 Mcg Tablet) 75 mcg PO DAILYBB [facility] Stop: 03/08/21 06:29 Last Admin: 02/09/21 11:47 Dose: 75 mcg Documented by: Metolazone (Metolazone 2.5 Mg Tablet) 2.5 mg PO MoTh [facility] Stop: 03/11/21 12:59 Metoprolol Succinate (Metoprolol Succ 50mg Ext Rel Tab) 100 mg PO [facility] Stop: 03/08/21 08:59 Last Admin: 02/09/21 11:47 Dose: 100 mg Documented by: Miscellaneous Information (Piperacill/Tazobac Consult Active) 1 ea N/A UD PRN PRN Reason: Consult Stop: 03/08/21 03:17 Multivitamins/Minerals (Calcium 600mg + Vit D 400 Iu Tab) [facility] Stop: 03/08/21 08:59 Last Admin: 02/09/21 11:47 Dose: 1 tab Documented by: Multivitamins/Minerals (Cerovite Adv Formula Tab) [facility] Stop: 03/08/21 08:59 Last Admin: 02/09/21 11:47 Dose: 1 tab Documented by: Nitroglycerin (Nitroglycerin Sl 0.4 Mg/Tab Tab) 0.4 mg SL UD PRN PRN Reason: Chest Pain Stop: 03/08/21 05:17 Ondansetron HCl (Ondansetron Inj 2 Mg/Ml 2 Ml Vial) 4 mg IV Q6H PRN PRN Reason: Nausea Stop: 03/08/21 05:17 Oxycodone/Acetaminophen (Oxycodone/Acetaminophen 5mg/325mg Tab) 1 tab PO Q4H PRN PRN Reason: Pain Stop: 02/23/21 10:39 Potassium Chloride (Potassium Chloride Pwd 20 Meq Pack) 60 meq PO SuTuWeFrSa@0900,2100 [facility] Stop: 03/12/21 08:59 Potassium Chloride (Potassium Chloride Pwd 20 Meq Pack) 80 meq PO MoTh@ [facility] Stop: 03/11/21 20:59 Torsemide (Torsemide 10 Mg Tab) 20 mg PO QAM [facility] Stop: 03/11/21 11:44 Vitamin D (Cholecalciferol 5,000 Units 125 Mcg Tab) 5,000 units PO MoTuWeThFr [facility] Stop: 03/08/21 08:59 Last Admin: 02/09/21 11:47 Dose: 5,000 units Documented by:
[2021-02-09] MEDS ORDERED: metOLazone 2.5 MG TABLET PO SCH (13:00)
[2021-02-09] MEDS: oxyCODONE/ACETAMINOPHEN 5mg/325mg TAB PO PRN ×2 (17:13→23:40)
[2021-02-09] MEDS: ATORVASTATIN 40 MG TAB PO SCH (20:53)
[2021-02-09] MEDS ORDERED: POTASSIUM CHLORIDE PWD 20 MEQ PACK PO SCH (21:00)
[2021-02-10] MEDS: PIPERACILLIN/TAZOBACTAM 4.5 GM in DEXTROSE 5% 100 ML IV SCH ×3 (01:34→17:48)
[2021-02-10] MEDS: LEVOTHYROXINE SODIUM 75 MCG TABLET PO SCH (06:26)
[2021-02-10 07:28] LABS: Hematocrit (blood only) 37.2 % (42-52); Hemoglobin 11.6 g/dL (14.0-18.0); Immature Granulocytes # (auto) 0.06 K/uL (0.00-0.02); Immature Granulocytes % (auto) 0.3 %; Lymphocytes # (auto) 1.11 K/uL (1.2-3.4); Lymphocytes % (auto) 6.4 %; Mean Corpuscular Hemoglobin 31.4 pg (25-34); Mean Corpuscular Hgb Conc 31.2 g/dL (32-36); Mean Corpuscular Volume 100.8 fL (80-100); Mean Platelet Volume 11.1 fL (7.4-10.4); Monocytes % (auto) 11.5 %; Neutrophils # (auto) 14.21 K/uL (1.4-6.5); Neutrophils % (auto) 81.8 %; Platelet Count 231 K/uL (130-400); RDW Coefficient of Variation 16.9 % (11.5-14.5); Red Blood Count 3.69 M/uL (4.7-6.1); White Blood Count 17.38 K/uL (4.8-10.8)
[2021-02-10 07:38] LABS: INR 1.2 (0.9-1.1); Partial Thromboplastin Time 26.1 Seconds (21.0-31.0); Prothrombin Time 11.7 Seconds (9.0-12.0)
[2021-02-10] MEDS: INSULIN ASPART PER UNIT SC SCH ×4 (08:04→20:35)
[2021-02-10] MEDS: ASPIRIN 81 MG ECTAB PO SCH (08:05)
[2021-02-10 08:07] LABS: Albumin Level 2.3 gm/dl (3.4-5.0); BUN Creatinine Ratio 24.2 (10-20); Calcium 9.3 mg/dl (8.5-10.1); Creatinine Clr Calc Pharmacy 40.1 ml/min; Est GFR (African American) 38.1 ml/min; Est GFR (Non-African American) 32.9 ml/min; Magnesium 2.8 mg/dl (1.8-2.4); Potassium 4.5 mmol/L (3.5-5.1)
[2021-02-10] MEDS: CHOLECALCIFEROL 5,000 UNITS 125 MCG TAB PO SCH (08:08)
[2021-02-10] MEDS: CEROVITE ADV FORMULA TAB PO SCH (08:08)
[2021-02-10] MEDS: ISOSORBIDE DINITRATE 10 MG TAB PO SCH (08:08)
[2021-02-10] MEDS: CALCIUM 600MG + VIT D 400 IU TAB PO SCH (08:08)
[2021-02-10] MEDS: CLOPIDOGREL BISULFATE 75 MG TAB PO SCH (08:08)
[2021-02-10] MEDS: METOPROLOL SUCC 50MG EXT REL TAB PO SCH (08:08)
[2021-02-10] MEDS: TORSEMIDE 10 MG TAB PO SCH (08:08)
[2021-02-10 08:16] LABS: Albumin Globulin Ratio 0.5 (0.9-2); Bilirubin,Total 3.3 mg/dl (0.2-1); Globulin 4.3 gm/dl (2.5-4.0); Phosphorus 3.5 mg/dl (2.5-4.9); Total Protein 6.6 gm/dl (6.4-8.2)
[2021-02-10] MEDS ORDERED: POTASSIUM CHLORIDE PWD 20 MEQ PACK PO SCH (09:00)
[2021-02-10] MEDS: HYDROmorphone INJ 1 MG/ML SYRINGE IV PRN (09:41)
--- NOTE | 2021-02-10 10:13 | Surgery Progress Note ---
Date of Service February 10, 2021 Assessment & Plan (1) S/P laparoscopic cholecystectomy: Plan: Tolerating liquids, advance diet as tolerated Okay to resume Plavix today as his hemoglobin is stable If he tolerates his diet will likely be stable for discharge from a surgical standpoint tomorrow He will follow up with Dr. Bruno as an outpatient in 1 to 2 weeks Admission and Anticipated Discharge Date Admission Date: February 06, 2021 Subjective Patient seen and examined. Tolerating clear liquids. No significant abdominal pain. Afebrile. Review of Systems Constitutional: no fever and no chills Physical Exam Constitutional: WD/WN, vitals as above Gastrointestinal (Abdomen): Inspection/Auscultation: abdomen normal to inspection; abdomen not distended and no abdominal edema Percussion/Palpation: abdomen soft; abdomen nontender and no guarding Dressings clean dry and intact Results & Data ([facility]) Vital Signs (Past 12 Hours) Vital Signs Temp Pulse Pulse Resp BP Pulse Ox 02/10/21 07:22 36.6 C 61 20 102/65 97 02/10/21 07:16 74 02/10/21 04:33 60 02/10/21 04:00 36.3 C L 61 18 109/71 99 02/10/21 00:00 36.6 C 59 L 18 102/66 99 02/09/21 22:30 84 20 96 PG Care Time/CCT Total # of Minutes Spent Total Time Spent with Patient: Total time spent is greater than 50% in coordination of care (as documented) at patient's floor/unit and/or counseling patient: Coding Level of Care Code None Diagnoses S/P laparoscopic cholecystectomy Z90.49
--- NOTE | 2021-02-10 10:43 | Cardiology Progress Note ---
Date of Service February 10, 2021 Assessment & Plan (1) S/P laparoscopic cholecystectomy: (2) Cholangitis: (3) Atrial fibrillation with controlled ventricular rate: (4) CAD (coronary artery disease): (5) PVD (peripheral vascular disease): Plan: 75 year old male (1,2) cholangitis for which patient is S/P laparoscopic cholecystectomy: -s/p laparoscopic cholecystectomy on 02/09/2021. Patient remains hemodynamically stable. Hemoglobin stable at 11.6 today. Per review of operative report, the surgical team had significant concerns with regards to the risk of perioperative bleeding given concerns of hepatic cirrhosis (likely due to fatty liver and chronic diastolic heart failure). As an outpatient, he is on clopidogrel 75 mg daily given his history of coronary heart disease, with remote CABG and PCI, and his history of peripheral arterial disease. He is back on clopidogrel 75 mg daily. Discontinue aspirin. -resume coumadin (without heparin bridge) and allow INR to come up slowly. -monitor H/ Hct. Will coordinate with hospialist service and general surgery. (3) Atrial fibrillation with controlled ventricular rate: -high risk for cardioembolic stroke, [id number] score 4-5 given age of 75 years, likely HTN, CHF, and CAD/PAD, however also at risk of perioperative bleeding. Coumadin stopped preop and received vitamin K. INR 1.2 today. Recommend starting coumadin without bridge therapy and trend Hgb as INR goal of 2-3 attained. (4) CAD (coronary artery disease): Chronic CAD s/p CABG x2 in 1999 (SIMS to LAD- later found to be occluded), and SVG to RCA (also later found to be occluded in 2002, PCI with [place] to the jackson mid LAD. Serial Troponin I negative this admisstion. EKG nondiagnostic for ischemia given V-pacing. No symptoms of angina at present. -resume clopidogrel as noted above. -Continue Imdur, metoprolol, atorvastatin. (5) PVD (peripheral vascular disease): status post right femoropopliteal bypass by Dr Greer, 1998 -clopidogrel resumed. (6)Chronic diastolic heart failure -the patient has a history of chronic lower extremity edema that has improved dramatically with the utilization of torsemide daily and metolazone 2 days per week. -notes recent concerns of gout. -he is back on torsemide 20 mg daily. -resume metolazone 2.5 mg next week, with trial of ONCE per week on Mondays, with extra dose on if necessary depending on swelling and weight status. Continue chronic potassium plan. Discussed in detail with patient. DVT prophylaxis: knee high TEDs, resume coumadin. Admission and Anticipated Discharge Date Admission Date: February 06, 2021 Subjective Mr Kirkpatrick is seen in cardiology follow up of his history of permanent atrial fibrillation, pacemaker, chronic coronary heart disease, and chronic diastolic heart failure.Patient well-known to the undersigned as I have followed him as an outpatient for several years. Patient is comfortable having presented on 02/05/21 with abdominal discomfort with episodes dating back to around the , with severe episode , this time starting with abdominal pain that radiated to his chest.Chest and abdominal discomfort resolved at present. Patient tolerated laparoscopic cholecystectomy performed 02/09/2021. Feeling improved today, only complaint is some very mild incision related pain around his port sites. Telemetry reveals rate controlled atrial fibrillation with ventricular pacing in the 60s, unchanged from his baseline. Review of Systems Review of Systems: All systems reviewed & are unremarkable except as noted in HPI & below Physical Exam Physical Exam: Temp Pulse Resp BP Pulse Ox 36.6 C 61 20 102/65 97 02/10/21 07:22 02/10/21 07:22 02/10/21 07:22 02/10/21 07:22 02/10/21 07:22 Constitutional: WD/WN, vitals as above Respiratory: normal respiratory effort, lungs clear to auscultation Cardiovascular: RRR, no murmur, no edema Gastrointestinal (Abdomen): Nontender, port incisions dressed, dressings not removed. Neurologic: No focal deficits Results & Data ([facility]) Vital Signs (Past 12 Hours) Vital Signs Temp Pulse Pulse Resp BP Pulse Ox 02/10/21 07:22 36.6 C 61 20 102/65 97 02/10/21 07:16 74 02/10/21 04:33 60 02/10/21 04:00 36.3 C L 61 18 109/71 99 02/10/21 00:00 36.6 C 59 L 18 102/66 99
--- NOTE | 2021-02-10 13:19 | Hospitalist Progress Note ---
Date of Service February 10, 2021 Assessment & Plan (1) Cholangitis: Plan: Secondary to choledocholithiasis status post ERCP with stent placement (02/06). He is clinically improved with improving leukocytosis. T bili continues to improve Continue Zosyn and continue to trend LFTs daily. Lap martinez performed on 02/09 (yesterday). Restart coumadin and plavix today ( stop aspirin) - discussed with cardiology and general surgery (2) Elevated LFTs: Plan: Secondary to #1, improving, plan as above. (3) Atrial fibrillation with controlled ventricular rate: Plan: h/o afib, rhythm currently sinus/paced s/p 3AV block. Rate is 60 and he is v- paced. Coumadin held preoperatively and used heparin as a bridge. Plavix and Coumadin restarted today. Stopped aspirin. (4) BREANNA (acute kidney injury): Plan: baseline creat 1.4-1.7. He is now at his baseline kidney function. Cont to stay hydrated. Metolazone/torsemide on hold. (5) PVD (peripheral vascular disease): Plan: Restart Plavix today, February 10, start ASA (6) CAD (coronary artery disease): Plan: chronic, stable. Cont current medical therapy as above. (7) DMII (diabetes mellitus, type 2): Plan: diet controlled DMII, A1C 6.9 reflecting good control. Cont bolus insulin PRN as needed for correction factor. Hold off on carb coverage or lantus at this time. Glucose is at goal. (8) DVT prophylaxis: Plan: SCDs in acute perioperative setting. Restart when ok with surgery Full Code Dispo-to home after recovery from surgery. PT/OT pending. Admission and Anticipated Discharge Date Admission Date: February 06, 2021 Subjective 75 yo M presented to the ER with chest pain shortness of breath and abdominal pain. Work-up revealed acute cholangitis secondary to gallstones. He is status post ERCP on 02/06 with stent placement in common bile duct. And s/p lap martinez 02/09 doing well post operatively wounds are covered with dressings, some blood on dressings present. Feeling much better since he came to the hospital. Denies any fevers, chills, chest pain, shortness of breath, abdominal pain nausea or vomiting. Discussed with cardiology, and general surgery, will restart patient's Coumadin, without heparin bridge. Also restart Plavix.(Stop aspirin which was used instea d of Plavix for past few days) Patient's at bedside and updated. Review of Systems Review of Systems: All systems reviewed & are unremarkable except as noted in Subjective Physical Exam Physical Exam: CONSTITUTIONAL: WN/WD, vitals as above, generally well-appearing, NAD EYES: EOMI, PERRL, normal conjunctivae, no scleral icterus ENT: external ear and nose normal, MMM NECK: supple RESPIRATORY: clear to auscultation bilaterally, no crackles, rales or wheezes, normal respiratory effort CARDIOVASCULAR: regular rate and rhythm, S1 and 2 heard without murmurs, gallops or rubs, no JVD, no peripheral edema GASTROINTESTINAL: soft, nontender, ND, no guarding, multiple incision sites covered with dressings MUSCULOSKELETAL: strength 5/5 throughout, head is normocephalic and atraumatic, neck supple SKIN: warm and dry, jaundice resolved NEUROLOGIC:Alert oriented, answering questions appropriately, no facial asymmetry, speech fluent, moves extremities PSYCHIATRIC:Euthymic mood Results & Data Results & Data ([facility]) Vital Signs (Past 12 Hours) Vital Signs Temp Pulse Pulse Resp BP Pulse Ox 02/10/21 11:27 36.4 C L 67 20 109/69 98 02/10/21 07:22 36.6 C 61 20 102/65 97 02/10/21 07:16 74 02/10/21 04:33 60 02/10/21 04:00 36.3 C L 61 18 109/71 99 Laboratory Results 02/10/21 02/10/21 02/10/21 Range/Units 11:40 07:37 07:04 WBC 17.38 H (4.8-10.8) K/uL RBC 3.69 L (4.7-6.1) M/uL Hgb 11.6 L (14.0-18.0) g/dL Hct 37.2 L (42-52) % MCV 100.8 H (80-100) fL MCH 31.4 (25-34) pg MCHC 31.2 L (32-36) g/dL RDW Std Deviation 63.0 H (36.4-46.3) fL RDW Coeff of Ibrahima 16.9 H (11.5-14.5) % Plt Count 231 (130-400) K/uL MPV 11.1 H (7.4-10.4) fL Immature Gran % (Auto) 0.3 % Neut % (Auto) 81.8 % Lymph % (Auto) 6.4 % [place] % (Auto) 11.5 % Eos % (Auto) 0.0 % Baso % (Auto) 0.0 % Neut # (Auto) 14.21 H (1.4-6.5) K/uL Lymph # (Auto) 1.11 L (1.2-3.4) K/uL [place] # (Auto) 2.00 H (0.11-0.59) K/uL Eos # (Auto) 0.00 (0-0.5) K/uL Baso # (Auto) 0.00 (0-0.2) K/uL Immature Gran # (Auto) 0.06 H (0.00-0.02) K/uL PT (9.0-12.0) Seconds INR (0.9-1.1) APTT (21.0-31.0) Seconds PTT Ratio Sodium (136-145) mmol/L Potassium (3.5-5.1) mmol/L Chloride (98-107) mmol/L Carbon Dioxide (21-32) mmol/L Anion Gap (3-11) BUN (7-18) mg/dl Creatinine (0.6-1.4) mg/dl Est Cr Clr Drug Dosing ml/min Est GFR ( Amer) ml/min Est GFR (Non-Af Amer) ml/min BUN/Creatinine Ratio (10-20) Glucose (70-99) mg/dl POC Glucose 157 H 146 H (70-99) mg/dl Calcium (8.5-10.1) mg/dl Phosphorus (2.5-4.9) mg/dl Magnesium (1.8-2.4) mg/dl Total Bilirubin (0.2-1) mg/dl AST (15-37) U/L ALT (12-78) Alkaline Phosphatase (45-117) U/L Total Protein (6.4-8.2) gm/dl Albumin (3.4-5.0) gm/dl Globulin (2.5-4.0) gm/dl Albumin/Globulin Ratio (0.9-2) 02/10/21 02/10/21 02/09/21 Range/Units 07:04 07:04 20:25 WBC (4.8-10.8) K/uL RBC (4.7-6.1) M/uL Hgb (14.0-18.0) g/dL Hct (42-52) % MCV (80-100) fL MCH (25-34) pg MCHC (32-36) g/dL RDW Std Deviation (36.4-46.3) fL RDW Coeff of Ibrahima (11.5-14.5) % Plt Count (130-400) K/uL MPV (7.4-10.4) fL Immature Gran % (Auto) % Neut % (Auto) % Lymph % (Auto) % [place] % (Auto) % Eos % (Auto) % Baso % (Auto) % Neut # (Auto) (1.4-6.5) K/uL Lymph # (Auto) (1.2-3.4) K/uL [place] # (Auto) (0.11-0.59) K/uL Eos # (Auto) (0-0.5) K/uL Baso # (Auto) (0-0.2) K/uL Immature Gran # (Auto) (0.00-0.02) K/uL PT 11.7 (9.0-12.0) Seconds INR 1.2 H (0.9-1.1) APTT 26.1 (21.0-31.0) Seconds PTT Ratio 1.0 Sodium 138 (136-145) mmol/L Potassium 4.5 D (3.5-5.1) mmol/L Chloride 105 (98-107) mmol/L Carbon Dioxide 30 (21-32) mmol/L Anion Gap 3.0 (3-11) BUN 47 H (7-18) mg/dl Creatinine 1.93 H (0.6-1.4) mg/dl Est Cr Clr Drug Dosing 40.1 ml/min Est GFR ( Amer) 38.1 ml/min Est GFR (Non-Af Amer) 32.9 ml/min BUN/Creatinine Ratio 24.2 H (10-20) Glucose 146 H (70-99) mg/dl POC Glucose 192 H (70-99) mg/dl Calcium 9.3 (8.5-10.1) mg/dl Phosphorus 3.5 (2.5-4.9) mg/dl Magnesium 2.8 H (1.8-2.4) mg/dl Total Bilirubin 3.3 H (0.2-1) mg/dl AST 53 H (15-37) U/L ALT 61 (12-78) Alkaline Phosphatase 168 H (45-117) U/L Total Protein 6.6 (6.4-8.2) gm/dl Albumin 2.3 L (3.4-5.0) gm/dl Globulin 4.3 H (2.5-4.0) gm/dl Albumin/Globulin Ratio 0.5 L (0.9-2) 02/09/21 Range/Units 16:48 WBC (4.8-10.8) K/uL RBC (4.7-6.1) M/uL Hgb (14.0-18.0) g/dL Hct (42-52) % MCV (80-100) fL MCH (25-34) pg MCHC (32-36) g/dL RDW Std Deviation (36.4-46.3) fL RDW Coeff of Ibrahima (11.5-14.5) % Plt Count (130-400) K/uL MPV (7.4-10.4) fL Immature Gran % (Auto) % Neut % (Auto) % Lymph % (Auto) % [place] % (Auto) % Eos % (Auto) % Baso % (Auto) % Neut # (Auto) (1.4-6.5) K/uL Lymph # (Auto) (1.2-3.4) K/uL [place] # (Auto) (0.11-0.59) K/uL Eos # (Auto) (0-0.5) K/uL Baso # (Auto) (0-0.2) K/uL Immature Gran # (Auto) (0.00-0.02) K/uL PT (9.0-12.0) Seconds INR (0.9-1.1) APTT (21.0-31.0) Seconds PTT Ratio Sodium (136-145) mmol/L Potassium (3.5-5.1) mmol/L Chloride (98-107) mmol/L Carbon Dioxide (21-32) mmol/L Anion Gap (3-11) BUN (7-18) mg/dl Creatinine (0.6-1.4) mg/dl Est Cr Clr Drug Dosing ml/min Est GFR ( Amer) ml/min Est GFR (Non-Af Amer) ml/min BUN/Creatinine Ratio (10-20) Glucose (70-99) mg/dl POC Glucose 171 H (70-99) mg/dl Calcium (8.5-10.1) mg/dl Phosphorus (2.5-4.9) mg/dl Magnesium (1.8-2.4) mg/dl Total Bilirubin (0.2-1) mg/dl AST (15-37) U/L ALT (12-78) Alkaline Phosphatase (45-117) U/L Total Protein (6.4-8.2) gm/dl Albumin (3.4-5.0) gm/dl Globulin (2.5-4.0) gm/dl Albumin/Globulin Ratio (0.9-2)
[2021-02-10] MEDS: WARFARIN SOD 5 MG TAB PO SCH (16:41)
[2021-02-10] MEDS: ATORVASTATIN 40 MG TAB PO SCH (20:36)
[2021-02-11] MEDS: PIPERACILLIN/TAZOBACTAM 4.5 GM in DEXTROSE 5% 100 ML IV SCH ×3 (02:19→18:08)
[2021-02-11] MEDS: LEVOTHYROXINE SODIUM 75 MCG TABLET PO SCH (06:00)
[2021-02-11 08:16] LABS: Basophils # (auto) 0.01 K/uL (0-0.2); Basophils % (auto) 0.1 %; Eosinophils # (auto) 0.19 K/uL (0-0.5); Eosinophils % (auto) 1.4 %; Hematocrit (blood only) 36.6 % (42-52); Hemoglobin 11.3 g/dL (14.0-18.0); Immature Granulocytes # (auto) 0.05 K/uL (0.00-0.02); Immature Granulocytes % (auto) 0.4 %; Lymphocytes # (auto) 1.69 K/uL (1.2-3.4); Lymphocytes % (auto) 12.6 %; Mean Corpuscular Hemoglobin 31.3 pg (25-34); Mean Corpuscular Hgb Conc 30.9 g/dL (32-36); Mean Corpuscular Volume 101.4 fL (80-100); Mean Platelet Volume 11.3 fL (7.4-10.4); Monocytes # (auto) 1.29 K/uL (0.11-0.59); Monocytes % (auto) 9.6 %; Neutrophils # (auto) 10.23 K/uL (1.4-6.5); Neutrophils % (auto) 75.9 %; Platelet Count 217 K/uL (130-400); RDW Standard Deviation 63.6 fL (36.4-46.3); Red Blood Count 3.61 M/uL (4.7-6.1); White Blood Count 13.46 K/uL (4.8-10.8)
--- NOTE | 2021-02-11 08:22 | Surgery Progress Note ---
Date of Service February 11, 2021 Assessment & Plan (1) S/P laparoscopic cholecystectomy: Plan: POD#2 lap martinez WBC 13 (17) Tolerating regular diet Pain controlled Ok to resume anticoagulation from our standpoint Okay for discharge to home when cleared by medicine F/U with Dr. Bruno in clinic within 2 weeks Admission and Anticipated Discharge Date Admission Date: February 06, 2021 Subjective Patient seen sitting at the side of bed eating bfast. Tolerating diet. Pain controlled. Physical Exam Physical Exam: awake/alert Gastrointestinal (Abdomen): Inspection/Auscultation: + abdominal surgical incision (surgical dressings in place) Results & Data ([facility]) Vital Signs (Past 12 Hours) Vital Signs Temp Pulse Pulse Pulse Resp BP BP 02/11/21 07:56 36.6 C 73 18 118/68 02/11/21 02:44 36.7 C 52 L 18 112/72 02/11/21 01:04 60 02/10/21 22:50 36.5 C 86 19 123/78 Pulse Ox 02/11/21 07:56 96 02/11/21 02:44 97 02/11/21 01:04 02/10/21 22:50 98 PG Care Time/CCT Total # of Minutes Spent Total Time Spent with Patient: Total time spent is greater than 50% in coordination of care (as documented) at patient's floor/unit and/or counseling patient: Coding Level of Care Code None Diagnoses S/P laparoscopic cholecystectomy Z90.49
[2021-02-11] MEDS: CLOPIDOGREL BISULFATE 75 MG TAB PO SCH (08:35)
[2021-02-11] MEDS: METOPROLOL SUCC 50MG EXT REL TAB PO SCH (08:36)
[2021-02-11] MEDS: CEROVITE ADV FORMULA TAB PO SCH (08:36)
[2021-02-11] MEDS: CALCIUM 600MG + VIT D 400 IU TAB PO SCH (08:36)
[2021-02-11] MEDS: ISOSORBIDE DINITRATE 10 MG TAB PO SCH (08:36)
[2021-02-11] MEDS: INSULIN ASPART PER UNIT SC SCH ×4 (08:38→20:35)
[2021-02-11 08:47] LABS: INR 1.2 (0.9-1.1); Prothrombin Time 11.9 Seconds (9.0-12.0)
[2021-02-11] MEDS: oxyCODONE/ACETAMINOPHEN 5mg/325mg TAB PO PRN (08:51)
[2021-02-11 09:47] LABS: Alanine Aminotransferase 41 (12-78); Albumin Globulin Ratio 0.5 (0.9-2); Albumin Level 2.2 gm/dl (3.4-5.0); Alkaline Phosphatase 157 U/L (45-117); Aspartate Aminotransferase 45 U/L (15-37); BUN Creatinine Ratio 23.2 (10-20); Bilirubin,Total 2.5 mg/dl (0.2-1); Blood Urea Nitrogen 47 mg/dl (7-18); Calcium 9.1 mg/dl (8.5-10.1); Chloride 102 mmol/L (98-107); Creatinine Clr Calc Pharmacy 38.9 ml/min; Est GFR (African American) 36.3 ml/min; Est GFR (Non-African American) 31.3 ml/min; Globulin 4.4 gm/dl (2.5-4.0); Glucose 101 mg/dl (70-99); Magnesium 2.3 mg/dl (1.8-2.4); Phosphorus 3.1 mg/dl (2.5-4.9); Sodium 138 mmol/L (136-145); Total Protein 6.6 gm/dl (6.4-8.2)
[2021-02-11 11:01] LABS: Potassium 2.9 mmol/L (3.5-5.1)
[2021-02-11] MEDS ORDERED: POTASSIUM CHLORIDE CRTAB 20 MEQ TABCR PO STA (12:17)
--- NOTE | 2021-02-11 12:17 | Hospitalist Progress Note ---
Date of Service February 11, 2021 Assessment & Plan (1) Cholangitis: Plan: Secondary to choledocholithiasis status post ERCP with stent placement (02/06). He is clinically improved with improving leukocytosis. T bili continues to improve (now 2.5) Continue Zosyn and continue to trend LFTs daily. Lap martinez performed on 02/09 Restarted coumadin and plavix ( stopped aspirin) - discussed with cardiology and general surgery (2) Elevated LFTs: Plan: Secondary to #1, improving, plan as above. (3) Atrial fibrillation with controlled ventricular rate: Plan: h/o afib, rhythm currently sinus/paced s/p 3AV block. Rate is 60 and he is v- paced. Coumadin held preoperatively and used heparin as a bridge. Plavix and Coumadin restarted. Stopped aspirin. (4) BREANNA (acute kidney injury): Plan: baseline creat 1.4-1.7. He is now at his baseline kidney function. Cont to stay hydrated. Metolazone/torsemide on hold. (5) PVD (peripheral vascular disease): Plan: Restart Plavix, February 10, stopped ASA (6) CAD (coronary artery disease): Plan: chronic, stable. Cont current medical therapy as above. (7) DMII (diabetes mellitus, type 2): Plan: diet controlled DMII, A1C 6.9 reflecting good control. (8) DVT prophylaxis: Plan: SCDs in acute perioperative setting. Full Code Dispo-to home after recovery from surgery. Likely tomorrow. Admission and Anticipated Discharge Date Admission Date: February 06, 2021 Subjective 75 yo M presented to the ER with chest pain shortness of breath and abdominal pain. Work-up revealed acute cholangitis secondary to gallstones. He is status post ERCP on 02/06 with stent placement in common bile duct. And s/p lap martinez 02/09 doing well post operatively Feeling much better since he came to the hospital. Denies any fevers, chills, chest pain, shortness of breath, abdominal pain nausea or vomiting. Restarted patient's Coumadin, without heparin bridge. Also restarted Plavix yesterday Patient's at bedside and updated. Review of Systems Review of Systems: All systems reviewed & are unremarkable except as noted in Subjective Physical Exam Physical Exam: CONSTITUTIONAL: WN/WD, vitals as above, generally well-appearing, NAD EYES: EOMI, PERRL, normal conjunctivae, no scleral icterus ENT: external ear and nose normal, MMM NECK: supple RESPIRATORY: clear to auscultation bilaterally, no crackles, rales or wheezes, normal respiratory effort CARDIOVASCULAR: regular rate and rhythm, S1 and 2 heard without murmurs, gallops or rubs, no JVD, no peripheral edema GASTROINTESTINAL: soft, nontender, ND, no guarding, multiple incision sites covered with dressings MUSCULOSKELETAL: strength 5/5 throughout, head is normocephalic and atraumatic, neck supple SKIN: warm and dry, jaundice resolved NEUROLOGIC:Alert oriented, answering questions appropriately, no facial asymmetry, speech fluent, moves extremities PSYCHIATRIC:Euthymic mood Results & Data Results & Data ([facility]) Vital Signs (Past 12 Hours) Vital Signs Temp Pulse Pulse Pulse Resp BP BP 02/11/21 11:36 36.9 C 62 20 112/72 02/11/21 07:56 36.6 C 73 18 118/68 02/11/21 02:44 36.7 C 52 L 18 112/72 02/11/21 01:04 60 Pulse Ox 02/11/21 11:36 96 02/11/21 07:56 96 02/11/21 02:44 97 02/11/21 01:04 Laboratory Results 02/11/21 02/11/21 02/11/21 Range/Units 11:32 11:12 07:53 WBC (4.8-10.8) K/uL RBC (4.7-6.1) M/uL Hgb (14.0-18.0) g/dL Hct (42-52) % MCV (80-100) fL MCH (25-34) pg MCHC (32-36) g/dL RDW Std Deviation (36.4-46.3) fL RDW Coeff of Ibrahima (11.5-14.5) % Plt Count (130-400) K/uL MPV (7.4-10.4) fL Immature Gran % (Auto) % Neut % (Auto) % Lymph % (Auto) % [place] % (Auto) % Eos % (Auto) % Baso % (Auto) % Neut # (Auto) (1.4-6.5) K/uL Lymph # (Auto) (1.2-3.4) K/uL [place] # (Auto) (0.11-0.59) K/uL Eos # (Auto) (0-0.5) K/uL Baso # (Auto) (0-0.2) K/uL Immature Gran # (Auto) (0.00-0.02) K/uL PT 11.9 (9.0-12.0) Seconds INR 1.2 H (0.9-1.1) Sodium (136-145) mmol/L Potassium (3.5-5.1) mmol/L Chloride (98-107) mmol/L Carbon Dioxide 33 H Anion Gap BUN (7-18) mg/dl Creatinine (0.6-1.4) mg/dl Est Cr Clr Drug Dosing ml/min Est GFR ( Amer) ml/min Est GFR (Non-Af Amer) ml/min BUN/Creatinine Ratio (10-20) Glucose (70-99) mg/dl POC Glucose 121 H (70-99) mg/dl Calcium (8.5-10.1) mg/dl Phosphorus (2.5-4.9) mg/dl Magnesium (1.8-2.4) mg/dl Total Bilirubin (0.2-1) mg/dl AST (15-37) U/L ALT (12-78) Alkaline Phosphatase (45-117) U/L Total Protein (6.4-8.2) gm/dl Albumin (3.4-5.0) gm/dl Globulin (2.5-4.0) gm/dl Albumin/Globulin Ratio (0.9-2) 02/11/21 02/11/21 02/11/21 Range/Units 07:53 07:53 07:41 WBC 13.46 H (4.8-10.8) K/uL RBC 3.61 L (4.7-6.1) M/uL Hgb 11.3 L (14.0-18.0) g/dL Hct 36.6 L (42-52) % MCV 101.4 H (80-100) fL MCH 31.3 (25-34) pg MCHC 30.9 L (32-36) g/dL RDW Std Deviation 63.6 H (36.4-46.3) fL RDW Coeff of Ibrahima 17.0 H (11.5-14.5) % Plt Count 217 (130-400) K/uL MPV 11.3 H (7.4-10.4) fL Immature Gran % (Auto) 0.4 % Neut % (Auto) 75.9 % Lymph % (Auto) 12.6 % [place] % (Auto) 9.6 % Eos % (Auto) 1.4 % Baso % (Auto) 0.1 % Neut # (Auto) 10.23 H (1.4-6.5) K/uL Lymph # (Auto) 1.69 (1.2-3.4) K/uL [place] # (Auto) 1.29 H (0.11-0.59) K/uL Eos # (Auto) 0.19 (0-0.5) K/uL Baso # (Auto) 0.01 (0-0.2) K/uL Immature Gran # (Auto) 0.05 H (0.00-0.02) K/uL PT (9.0-12.0) Seconds INR (0.9-1.1) Sodium 138 (136-145) mmol/L Potassium 2.9 L D (3.5-5.1) mmol/L Chloride 102 (98-107) mmol/L Carbon Dioxide TNP Anion Gap Not Reportable BUN 47 H (7-18) mg/dl Creatinine 2.01 H (0.6-1.4) mg/dl Est Cr Clr Drug Dosing 38.9 ml/min Est GFR ( Amer) 36.3 ml/min Est GFR (Non-Af Amer) 31.3 ml/min BUN/Creatinine Ratio 23.2 H (10-20) Glucose 101 H (70-99) mg/dl POC Glucose 105 H (70-99) mg/dl Calcium 9.1 (8.5-10.1) mg/dl Phosphorus 3.1 (2.5-4.9) mg/dl Magnesium 2.3 (1.8-2.4) mg/dl Total Bilirubin 2.5 H (0.2-1) mg/dl AST 45 H (15-37) U/L ALT 41 (12-78) Alkaline Phosphatase 157 H (45-117) U/L Total Protein 6.6 (6.4-8.2) gm/dl Albumin 2.2 L (3.4-5.0) gm/dl Globulin 4.4 H (2.5-4.0) gm/dl Albumin/Globulin Ratio 0.5 L (0.9-2) 02/10/21 02/10/21 Range/Units 20:24 16:46 WBC (4.8-10.8) K/uL RBC (4.7-6.1) M/uL Hgb (14.0-18.0) g/dL Hct (42-52) % MCV (80-100) fL MCH (25-34) pg MCHC (32-36) g/dL RDW Std Deviation (36.4-46.3) fL RDW Coeff of Ibrahima (11.5-14.5) % Plt Count (130-400) K/uL MPV (7.4-10.4) fL Immature Gran % (Auto) % Neut % (Auto) % Lymph % (Auto) % [place] % (Auto) % Eos % (Auto) % Baso % (Auto) % Neut # (Auto) (1.4-6.5) K/uL Lymph # (Auto) (1.2-3.4) K/uL [place] # (Auto) (0.11-0.59) K/uL Eos # (Auto) (0-0.5) K/uL Baso # (Auto) (0-0.2) K/uL Immature Gran # (Auto) (0.00-0.02) K/uL PT (9.0-12.0) Seconds INR (0.9-1.1) Sodium (136-145) mmol/L Potassium (3.5-5.1) mmol/L Chloride (98-107) mmol/L Carbon Dioxide Anion Gap BUN (7-18) mg/dl Creatinine (0.6-1.4) mg/dl Est Cr Clr Drug Dosing ml/min Est GFR ( Amer) ml/min Est GFR (Non-Af Amer) ml/min BUN/Creatinine Ratio (10-20) Glucose (70-99) mg/dl POC Glucose 140 H 135 H (70-99) mg/dl Calcium (8.5-10.1) mg/dl Phosphorus (2.5-4.9) mg/dl Magnesium (1.8-2.4) mg/dl Total Bilirubin (0.2-1) mg/dl AST (15-37) U/L ALT (12-78) Alkaline Phosphatase (45-117) U/L Total Protein (6.4-8.2) gm/dl Albumin (3.4-5.0) gm/dl Globulin (2.5-4.0) gm/dl Albumin/Globulin Ratio (0.9-2)
[2021-02-11] MEDS: POTASSIUM CHLORIDE / WTR 10 MEQ/100 ML PLCT IV SCH ×2 (14:07→16:07)
[2021-02-11] MEDS: WARFARIN SOD 5 MG TAB PO SCH (18:01)
[2021-02-11] MEDS: ATORVASTATIN 40 MG TAB PO SCH (20:39)
[2021-02-12] MEDS: PIPERACILLIN/TAZOBACTAM 4.5 GM in DEXTROSE 5% 100 ML IV SCH ×2 (02:01→10:51)
[2021-02-12] MEDS: LEVOTHYROXINE SODIUM 75 MCG TABLET PO SCH (05:57)
[2021-02-12 07:35] LABS: Hematocrit (blood only) 35.4 % (42-52); Hemoglobin 11.1 g/dL (14.0-18.0); Mean Corpuscular Hemoglobin 31.4 pg (25-34); Mean Corpuscular Hgb Conc 31.4 g/dL (32-36); Mean Platelet Volume 11.5 fL (7.4-10.4); Platelet Count 211 K/uL (130-400); RDW Coefficient of Variation 16.8 % (11.5-14.5); RDW Standard Deviation 61.2 fL (36.4-46.3); Red Blood Count 3.54 M/uL (4.7-6.1); White Blood Count 12.82 K/uL (4.8-10.8)
[2021-02-12 07:43] LABS: INR 1.3 (0.9-1.1); Prothrombin Time 12.9 Seconds (9.0-12.0)
[2021-02-12 08:07] LABS: BUN Creatinine Ratio 23.2 (10-20); Calcium 8.9 mg/dl (8.5-10.1); Creatinine Clr Calc Pharmacy 42.4 ml/min; Est GFR (African American) 41.2 ml/min; Est GFR (Non-African American) 35.5 ml/min; Magnesium 2.2 mg/dl (1.8-2.4); Potassium 3.1 mmol/L (3.5-5.1)
[2021-02-12 08:10] LABS: Albumin Globulin Ratio 0.5 (0.9-2); Globulin 4.1 gm/dl (2.5-4.0); Phosphorus 2.4 mg/dl (2.5-4.9); Total Protein 6.1 gm/dl (6.4-8.2)
[2021-02-12] MEDS: CALCIUM 600MG + VIT D 400 IU TAB PO SCH (08:20)
[2021-02-12] MEDS: CEROVITE ADV FORMULA TAB PO SCH (08:20)
[2021-02-12] MEDS: ISOSORBIDE DINITRATE 10 MG TAB PO SCH (08:20)
[2021-02-12] MEDS: METOPROLOL SUCC 50MG EXT REL TAB PO SCH (08:21)
[2021-02-12] MEDS: CLOPIDOGREL BISULFATE 75 MG TAB PO SCH (08:21)
[2021-02-12] MEDS: INSULIN ASPART PER UNIT SC SCH ×2 (08:24→12:16)
[2021-02-12 09:15] LABS: Bilirubin,Total 2.4 mg/dl (0.2-1)
[2021-02-12] MEDS ORDERED: POTASSIUM CHLORIDE CRTAB 20 MEQ TABCR PO STA (14:11)
--- NOTE | 2021-02-12 14:21 | Hospitalist Progress Note ---
Date of Service February 12, 2021 Assessment & Plan (1) Cholangitis: Plan: Secondary to choledocholithiasis status post ERCP with stent placement (02/06). He is clinically improved with improving leukocytosis. LFTs and T bili continue to improve (T bili now 2.4) Continue Zosyn Lap martinez performed on 02/09 Restarted coumadin and plavix ( stopped aspirin) - discussed with cardiology and general surgery (2) Elevated LFTs: Plan: Secondary to #1, improving, plan as above. (3) Atrial fibrillation with controlled ventricular rate: Plan: h/o afib, rhythm currently sinus/paced s/p 3AV block. Rate is 60 and he is v- paced. Coumadin held preoperatively and used heparin as a bridge. Coumadin restarted. (4) BREANNA (acute kidney injury): Plan: baseline creat 1.4-1.7. He is now at his baseline kidney function. Cont to stay hydrated. Metolazone/torsemide on hold. Plan to restart metolazone twice a day, on Mondays and only to take second dose, on if patient develops weight gain/edema (per cardiology) (5) PVD (peripheral vascular disease): Plan: Restarted Plavix, February 10, stopped ASA (6) CAD (coronary artery disease): Plan: chronic, stable. Cont current medical therapy as above. (7) DMII (diabetes mellitus, type 2): Plan: diet controlled DMII, A1C 6.9 reflecting good control. (8) DVT prophylaxis: Plan: SCDs in acute perioperative setting. Full Code Dispo-to home w/ family Admission and Anticipated Discharge Date Admission Date: February 06, 2021 Subjective 75 yo M presented to the ER with chest pain shortness of breath and abdominal pain. Work-up revealed acute cholangitis secondary to gallstones. He is status post ERCP on 02/06 with stent placement in common bile duct. And s/p lap martinez 02/09 Patient is feeling well, and is inquiring about going home. Denies any fevers, chills, chest pain, shortness of breath, abdominal pain nausea or vomiting. Patient's at bedside and updated. Review of Systems Review of Systems: All systems reviewed & are unremarkable except as noted in Subjective Physical Exam Physical Exam: CONSTITUTIONAL: WN/WD, vitals as above, generally well-appearing, NAD EYES: EOMI, PERRL, normal conjunctivae, no scleral icterus ENT: external ear and nose normal, MMM NECK: supple RESPIRATORY: clear to auscultation bilaterally, no crackles, rales or wheezes, normal respiratory effort CARDIOVASCULAR: regular rate and rhythm, S1 and 2 heard without murmurs, gallops or rubs, no JVD, no peripheral edema GASTROINTESTINAL: soft, nontender, ND, no guarding, multiple incision sites covered with dressings MUSCULOSKELETAL: strength 5/5 throughout, head is normocephalic and atraumatic, neck supple SKIN: warm and dry, jaundice resolved NEUROLOGIC:Alert oriented, answering questions appropriately, no facial asymmetry, speech fluent, moves extremities PSYCHIATRIC:Euthymic mood Results & Data Results & Data ([facility]) Vital Signs (Past 12 Hours) Vital Signs Temp Pulse Pulse Resp BP Pulse Ox 02/12/21 11:59 36.4 C L 70 18 114/68 93 02/12/21 08:00 36.5 C 60 18 124/79 98 02/12/21 07:21 60 02/12/21 06:22 77 02/12/21 04:08 36.7 C 67 18 111/74 95 Laboratory Results 02/12/21 02/12/21 02/12/21 Range/Units 11:47 07:31 07:16 WBC (4.8-10.8) K/uL RBC (4.7-6.1) M/uL Hgb (14.0-18.0) g/dL Hct (42-52) % MCV (80-100) fL MCH (25-34) pg MCHC (32-36) g/dL RDW Std Deviation (36.4-46.3) fL RDW Coeff of Ibrahima (11.5-14.5) % Plt Count (130-400) K/uL MPV (7.4-10.4) fL PT (9.0-12.0) Seconds INR (0.9-1.1) Sodium 140 (136-145) mmol/L Potassium 3.1 L (3.5-5.1) mmol/L Chloride 103 (98-107) mmol/L Carbon Dioxide 33 H (21-32) mmol/L Anion Gap 4.0 (3-11) BUN 42 H (7-18) mg/dl Creatinine 1.81 H (0.6-1.4) mg/dl Est Cr Clr Drug Dosing 42.4 ml/min Est GFR ( Amer) 41.2 ml/min Est GFR (Non-Af Amer) 35.5 ml/min BUN/Creatinine Ratio 23.2 H (10-20) Glucose 116 H (70-99) mg/dl POC Glucose 122 H 112 H (70-99) mg/dl Calcium 8.9 (8.5-10.1) mg/dl Phosphorus 2.4 L (2.5-4.9) mg/dl Magnesium 2.2 (1.8-2.4) mg/dl Total Bilirubin 2.4 H (0.2-1) mg/dl AST 41 H (15-37) U/L ALT 31 (12-78) Alkaline Phosphatase 161 H (45-117) U/L Total Protein 6.1 L (6.4-8.2) gm/dl Albumin 2.0 L (3.4-5.0) gm/dl Globulin 4.1 H (2.5-4.0) gm/dl Albumin/Globulin Ratio 0.5 L (0.9-2) 02/12/21 02/12/21 02/11/21 Range/Units 07:16 07:16 20:04 WBC 12.82 H (4.8-10.8) K/uL RBC 3.54 L (4.7-6.1) M/uL Hgb 11.1 L (14.0-18.0) g/dL Hct 35.4 L (42-52) % MCV 100.0 (80-100) fL MCH 31.4 (25-34) pg MCHC 31.4 L (32-36) g/dL RDW Std Deviation 61.2 H (36.4-46.3) fL RDW Coeff of Ibrahima 16.8 H (11.5-14.5) % Plt Count 211 (130-400) K/uL MPV 11.5 H (7.4-10.4) fL PT 12.9 H (9.0-12.0) Seconds INR 1.3 H (0.9-1.1) Sodium (136-145) mmol/L Potassium (3.5-5.1) mmol/L Chloride (98-107) mmol/L Carbon Dioxide (21-32) mmol/L Anion Gap (3-11) BUN (7-18) mg/dl Creatinine (0.6-1.4) mg/dl Est Cr Clr Drug Dosing ml/min Est GFR ( Amer) ml/min Est GFR (Non-Af Amer) ml/min BUN/Creatinine Ratio (10-20) Glucose (70-99) mg/dl POC Glucose 156 H (70-99) mg/dl Calcium (8.5-10.1) mg/dl Phosphorus (2.5-4.9) mg/dl Magnesium (1.8-2.4) mg/dl Total Bilirubin (0.2-1) mg/dl AST (15-37) U/L ALT (12-78) Alkaline Phosphatase (45-117) U/L Total Protein (6.4-8.2) gm/dl Albumin (3.4-5.0) gm/dl Globulin (2.5-4.0) gm/dl Albumin/Globulin Ratio (0.9-2) 02/11/21 Range/Units 16:51 WBC (4.8-10.8) K/uL RBC (4.7-6.1) M/uL Hgb (14.0-18.0) g/dL Hct (42-52) % MCV (80-100) fL MCH (25-34) pg MCHC (32-36) g/dL RDW Std Deviation (36.4-46.3) fL RDW Coeff of [place]brah[place] (11.5-14.5) % Plt Count (130-400) K/uL MPV (7.4-10.4) fL PT (9.0-12.0) Seconds INR (0.9-1.1) Sodium (136-145) mmol/L Potassium (3.5-5.1) mmol/L Chloride (98-107) mmol/L Carbon Dioxide (21-32) mmol/L Anion Gap (3-11) BUN (7-18) mg/dl Creatinine (0.6-1.4) mg/dl Est Cr Clr Drug Dosing ml/min Est GFR ( Amer) ml/min Est GFR (Non-Af Amer) ml/min BUN/Creatinine Ratio (10-20) Glucose (70-99) mg/dl POC Glucose 120 H (70-99) mg/dl Calcium (8.5-10.1) mg/dl Phosphorus (2.5-4.9) mg/dl Magnesium (1.8-2.4) mg/dl Total Bilirubin (0.2-1) mg/dl AST (15-37) U/L ALT (12-78) Alkaline Phosphatase (45-117) U/L Total Protein (6.4-8.2) gm/dl Albumin (3.4-5.0) gm/dl Globulin (2.5-4.0) gm/dl Albumin/Globulin Ratio (0.9-2) Medications Administered Current Inpatient Medications Acetaminophen (Acetaminophen 325 Mg Tab) 650 mg PO Q4H PRN PRN Reason: Pain or Fever Stop: 03/08/21 05:17 Atorvastatin Calcium (Atorvastatin 40 Mg Tab) 80 mg PO QPM [facility] Stop: 03/08/21 20:59 Last Admin: 02/11/21 20:39 Dose: 80 mg Documented by: Clopidogrel Bisulfate (Clopidogrel Bisulfate 75 Mg Tab) 75 mg PO [facility] Stop: 03/08/21 08:59 Last Admin: 02/12/21 08:21 Dose: 75 mg Documented by: Hydromorphone HCl (Hydromorphone Inj 1 Mg/Ml Syringe) 1 mg IV Q6H PRN PRN Reason: Pain Stop: 02/23/21 10:39 Last Admin: 02/10/21 09:41 Dose: 1 mg Documented by: Piperacillin Sod/Tazobactam (Sod 4.5 gm/ Dextrose) 120 mls @ 30 mls/hr IV Q8H [facility]; Protocol Stop: 02/16/21 03:17 Last Admin: 02/12/21 10:51 Dose: 30 mls/hr Documented by: Insulin Aspart (Insulin Aspart Per Unit) 0 units SC [facility] Stop: 03/09/21 16:29 Last Admin: 02/12/21 12:16 Dose: 3 units Documented by: Isosorbide Dinitrate (Isosorbide Dinitrate 10 Mg Tab) 30 mg PO [facility] Stop: 03/08/21 08:59 Last Admin: 02/12/21 08:20 Dose: 30 mg Documented by: Levothyroxine Sodium (Levothyroxine Sodium 75 Mcg Tablet) 75 mcg PO DAILYBB [facility] Stop: 03/08/21 06:29 Last Admin: 02/12/21 05:57 Dose: 75 mcg Documented by: Metolazone (Metolazone 2.5 Mg Tablet) 2.5 mg PO MoTh [facility] Stop: 03/11/21 12:59 Last Admin: 02/09/21 13:22 Dose: 2.5 mg Documented by: Metoprolol Succinate (Metoprolol Succ 50mg Ext Rel Tab) 100 mg PO QAM [facility] Stop: 03/08/21 08:59 Last Admin: 02/12/21 08:21 Dose: 100 mg Documented by: Miscellaneous Information (Piperacill/Tazobac Consult Active) 1 ea N/A UD PRN PRN Reason: Consult Stop: 03/08/21 03:17 Multivitamins/Minerals (Calcium 600mg + Vit D 400 Iu Tab) 1 tab PO QAM [facility] Stop: 03/08/21 08:59 Last Admin: 02/12/21 08:20 Dose: 1 tab Documented by: Multivitamins/Minerals (Cerovite Adv Formula Tab) 1 tab PO QAM [facility] Stop: 03/08/21 08:59 Last Admin: 02/12/21 08:20 Dose: 1 tab Documented by: Nitroglycerin (Nitroglycerin Sl 0.4 Mg/Tab Tab) 0.4 mg SL UD PRN PRN Reason: Chest Pain Stop: 03/08/21 05:17 Ondansetron HCl (Ondansetron Inj 2 Mg/Ml 2 Ml Vial) 4 mg IV Q6H PRN PRN Reason: Nausea Stop: 03/08/21 05:17 Oxycodone/Acetaminophen (Oxycodone/Acetaminophen 5mg/325mg Tab) 1 tab PO Q4H PRN PRN Reason: Pain Stop: 02/23/21 10:39 Last Admin: 02/11/21 08:51 Dose: 1 tab Documented by: Potassium Chloride (Potassium Chloride Pwd 20 Meq Pack) 60 meq PO SuTuWeFrSa@ 899,2099 [facility] Stop: 03/12/21 08:59 Last Admin: 02/10/21 08:06 Dose: 60 meq Documented by: Potassium Chloride (Potassium Chloride Pwd 20 Meq Pack) 80 meq PO MoTh@00,2099 [facility] Stop: 03/11/21 20:59 Last Admin: 02/09/21 20:53 Dose: 80 meq Documented by: Torsemide (Torsemide 10 Mg Tab) 20 mg PO QAM [facility] Stop: 03/11/21 11:44 Last Admin: 02/10/21 08:08 Dose: 20 mg Documented by: Vitamin D (Cholecalciferol 5,000 Units 125 Mcg Tab) 5,000 units PO MoTuWeThFr [facility] Stop: 03/08/21 08:59 Last Admin: 02/10/21 08:08 Dose: 5,000 units Documented by: Warfarin Sodium (Warfarin Sod 5 Mg Tab) 5 mg PO DAILY@1600 [facility] Stop: 03/12/21 15:59 Last Admin: 02/11/21 18:01 Dose: 5 mg Documented by:
--- NOTE | 2021-02-12 15:04 | Discharge Summary ---
Date of Service February 12, 2021 Admission HPI Per Admitting Provider A 75-year-old male with past medical history significant for type 2 diabetes, currently not on any medications, hyperlipidemia, history of hyperthyroidism, obstructive sleep apnea, CAD status post CABG x2 and status post stents, chronic systolic and diastolic CHF, history of AV block third degree, status post pacemaker, history of chronic atrial fibrillation, left bundle-branch block, morbid obesity, chronic kidney disease stage III, gouty arthropathy, low back pain, history of blood clots, currently lives alone at home, ambulates with a cane. Comes here because of feeling of chest pain since yesterday. The patient states since yesterday 1:00 to 2:00 p.m., he noticed some indigestion kind of feeling, some abdominal discomfort with pain radiating to the chest and it was not getting better, so came to the ER. It was very severe in nature. With the morphine, the pain is currently resolved. When he was having the pain, he also was nauseous and denies any shortness of breath, feels some cold and chills. No fever, no headache, no blurred vision, no earache, no runny nose, no sore throat. No cough. Appetite is okay. No diarrhea or constipation, no blood in stool or black stools. Normal bladder movements. No swelling in the legs. Currently resting comfortably and hemodynamically stable. Admission Exam Per Admitting Provider GENERAL: The patient is obese, not in acute distress currently. VITAL SIGNS: Temperature 36.4, pulse 60, respiratory rate 16, blood pressure 96/64, oxygen 95% on room air. HEENT: Pupils equal, round and reactive to light. Oral mucosa moist. NECK: No JVD, no neck masses. CARDIOVASCULAR: S1 and S2 heard. Regular rate and rhythm. No murmur, no gallop. RESPIRATORY SYSTEM: Normal AP diameter. No accessory muscle use. No wheezing, no crackles. ABDOMEN: Soft, bowel sounds present, nontender, no distention. CENTRAL NERVOUS SYSTEM: Cranial nerves II-XII grossly intact, nonfocal. EXTREMITIES: No edema, no erythema. Principal Diagnosis Cholangitis Cholelithiasis Patient status post ERCP and status post laparoscopic cholecystectomy History of PVD history of A. fib Discharge Exam CONSTITUTIONAL: WN/WD, vitals as above, generally well-appearing, NAD EYES: EOMI, PERRL, normal conjunctivae, no scleral icterus ENT: external ear and nose normal, MMM NECK: supple RESPIRATORY: clear to auscultation bilaterally, no crackles, rales or wheezes, normal respiratory effort CARDIOVASCULAR: regular rate and rhythm, S1 and 2 heard without murmurs, gallops or rubs, no JVD, no peripheral edema GASTROINTESTINAL: soft, nontender, ND, no guarding, multiple incision sites covered with dressings MUSCULOSKELETAL: strength 5/5 throughout, head is normocephalic and atraumatic, neck supple SKIN: warm and dry, jaundice resolved NEUROLOGIC:Alert oriented, answering questions appropriately, no facial asymmetry, speech fluent, moves extremities PSYCHIATRIC:Euthymic mood Discharge Data Allergies Allergy/AdvReac Type Severity Reaction Status Date / Time Sulfa (Sulfonamide AdvReac Mild STOMACH Verified 02/06/21 14:15 Antibiotics) CRAMPS Consultations 02/05/21 23:59 ED Decision to Admit Stat 02/06/21 05:18 Consult Gastroenterology Routine 02/06/21 08:00 Consult Cardiology Routine Consult General Surgery Routine Procedures Performed Operation Date: 02/06/21 09:40 Actual Procedures p Esophagogastroduodenoscopy - Karan James MD s Endoscopic Ultrasonography Upper - Karan James MD p Endoscopic Retrograde Cholangiopancreato - Karan James MD Operation Date: 02/09/21 07:30 Actual Procedures p Laparoscopic Cholecystectomy(Not Applicable) - Cari Bruno MD Ordered Studies 02/05/21 21:28 CT angio chest PE protocol Stat Impression: 1. No CTA evidence for pulmonary embolus. 2. As noted radiographically, there is asymmetric elevation of the right hemidiaphragm with crowding of the bronchovascular markings at the right lung base. 3. There is also right basilar atelectasis posteriorly with otherwise no acute chest disease. 4. Coronary artery calcification. 02/05/21 23:18 US gallbladder Urgent IMPRESSION: 1. Cholelithiasis and gallbladder distention. The findings are equivocal for acute cholecystitis. A hepatobiliary scan could be obtained as indicated. 2. No biliary ductal dilatation. 3. Possible 2.1 cm solid right renal lesion. Nonemergent renal protocol CT is recommended for further evaluation 02/06/21 [place] ERCP biliary ductal Routine 02/06/21 14:07 US upper EUS PACS images Routine Hospital Course (1) Cholangitis: Secondary to choledocholithiasis status post ERCP with stent placement (02/06). He is clinically improved with improving leukocytosis. LFTs and T bili continue to improve (T bili now 2.4) Continue Zosyn Lap martinez performed on 02/09 Restarted coumadin and plavix ( stopped aspirin) - discussed with cardiology and general surgery (2) Elevated LFTs: Secondary to #1, improving, plan as above. (3) Atrial fibrillation with controlled ventricular rate: h/o afib, rhythm currently sinus/paced s/p 3AV block. Rate is 60 and he is v-paced. Coumadin held preoperatively and used heparin as a bridge. Coumadin restarted. (4) BREANNA (acute kidney injury): baseline creat 1.4-1.7. He is now at his baseline kidney function. Cont to stay hydrated. Metolazone/torsemide on hold. Plan to restart metolazone twice a day, on Mondays and only to take second dose, on if patient develops weight gain/edema (per cardiology) (5) PVD (peripheral vascular disease): Restarted Plavix, February 10, stopped ASA (6) CAD (coronary artery disease): chronic, stable. Cont current medical therapy as above. (7) DMII (diabetes mellitus, type 2): diet controlled DMII, A1C 6.9 reflecting good control. (8) DVT prophylaxis: Dispo-to home w/ family Total Time Total Time Spent Total Time Spent (In Minutes): 40 Discharge Plan Discharge Items Patient Disposition: Home - Self-Care Reason For Visit: Chest Pain Discharge Diagnosis: Cholangitis Cholelithiasis Patient status post ERCP and status post laparoscopic cholecystectomy History of PVD history of A. fib Activity: Per Instructions section Non-emergency contact: Primary Care Provider Call non-emergency contact if: you have any medication questions and your symptoms worsen Follow-up/Referrals: Johnathan Adler MD [Primary Care Provider] - Diet: Heart Healthy Addtl Attending Provider Instructions: Follow up with your primary care doctor and your general surgeon within 1 to 2 weeks. Call your surgeon's office, Dr. Bruno, to set up the appointment. Finish the antibiotic treatment, with Augmentin, as prescribed. You will need to have your blood work done, BMP, to check on your kidney function. You will also need to have your INR checked, with anticoagulation clinic. Take metolazone once a week, on Mondays. Only take metolazone on , if you notice weight gain and/or edema. For pain you can take Tylenol, up to 3000 mg a day. For more severe pain, take oxycodone, as prescribed. Pending Studies at Discharge: No Stand-Alone Forms: My [facility], Smoking Cessation Medications and DC Order Prescriptions: New amoxicillin-pot clavulanate [Augmentin] 875-125 mg tablet 1 tab PO BID Qty: 4 RF: 0 oxycodone 5 mg tablet 5 mg PO Q6H Qty: 7 RF: 0 Continued metolazone 2.5 mg tablet 2.5 mg PO UD RF: 0 metoprolol succinate 100 mg capsule,sprinkle,ER 24hr 100 mg PO QAM RF: 0 torsemide 10 mg tablet 20 mg PO QAM RF: 0 warfarin [Jantoven] 5 mg tablet 2.5 - 5 mg PO QPM RF: 0 isosorbide dinitrate 30 mg tablet 30 mg PO QAM RF: 0 clopidogrel 75 mg tablet 75 mg PO QAM RF: 0 potassium chloride 20 mEq packet 60 meq PO BID RF: 0 atorvastatin 80 mg tablet 80 mg PO QPM RF: 0 Multivitamin 50 Plus Tablet 1 tab PO QAM RF: 0 calcium carbonate-vitamin D3 [Calcium 500 + D] 500 mg(1,250mg) -200 unit Tablet 1 tab PO QAM RF: 0 cholecalciferol (vitamin D3) [Vitamin D3] 125 mcg (5,000 unit) Tablet 125 mcg PO 5XWK RF: 0 levothyroxine 75 mcg tablet 75 mcg PO DAILY RF: 0 Discharge Orders: Discharge Order (Routine); Ordered 02/12/21 Ordered By: Brandon Malhotra/Other Patient Handouts: 5 Steps for Eating Healthier, Type 2 Diabetes Admission Data Admit Date/Time: 02/06/21 03:16 Attending Provider: Brandon Espino Admit Provider: Jorge Nguyễn Primary Care Provider: Johnathan Adler Other Providers: Jorge Nguyễn ; Sridhar Chavez ; Michael Matthews ; Pan Stevenson ; Yvette Flores.
== END 2021-02-12 15:46 | disposition home or self-care (01) | DRG 417 ==
LOC: ED 19:06 → SUATTDRO 02-06 03:16 → EDINP 02-06 03:16 → 2N 02-06 23:18